=== PATIENT | male | born 1970 | race Caucasian/White ===

== ENCOUNTER 2017-08-17 12:04 | Emergency (ER) | payer MEDICARE, SELFPAY ==
[2017-08-17 12:22] VITALS: BP 147/97; PULSE 80; RESP 20; TEMP 36.6; O2SAT 97; BMI 25.1
--- NOTE | 2017-08-17 12:33 | HMH.EDUTC ---
[facility] [place] Impression: Gout flare Disposition: Home, Self-Care Condition on Discharge: Good Instructions: DI for Gout, Gout, Gout (Alternative Therapy) Additional Instructions: Take medication as prescribed Follow up with family doctor Return if needed If pain worsens or you see red streaks on foot go straight to ER Prescriptions: Ibuprofen [Ibuprofen 800mg Tab] 800 mg PO Q6HP PRN #20 tab PRN Reason: Moderate Pain Colchicine [Colcrys 0.6mg tablet] 0.6 mg PO BID #30 tab Time of Disposition: 12:51 Medical Decision Making - Medical Records Medical records reviewed: Yes: I reviewed the patient's medical records. Vital Signs: 08/17/17 12:22 Temperature 97.9 F Temperature Source Temporal Artery Scan Pulse Rate [Radial] 80 Respiratory Rate 20 Blood Pressure [Right Arm] 147/97 Blood Pressure Mean [Right Arm] 113 Blood Pressure Source [Right Arm] Automatic Cuff Blood Pressure Position [Right Arm] Sitting 02 Sat by Pulse Oximetry 97 Oxygen Delivery Method Room Air - Bayron Inquiry Pt receiving controlled substance: No Bayron was queried for this patient: No [facility] [place] - General Stated complaint: pain in r big toe Mode of Arrival: Ambulatory Source of Information: Patient Limitations: No Limitations Description of Symptoms (Recalled from Triage Doc. by RN): PT HAS A HX OF GOUT. PT STATES HE IS HAS GOUT IN HIS RIGHT BIG TOE HEENT Symptoms (Recalled from RN notes): No Resp Symptoms (Recalled from RN notes): No Skin Symptoms (Recalled from RN notes): No MS Symptoms (Recalled from RN notes): No Functional Status (Recalled from RN notes): NA - History of Present Illness Provider Complaint: Patient state that he has a history of gout State that he is having a gout attack in his right great toe State that he had gout about 4 days ago in the left great toe and that got better and now has returned and in the right great toe State that he has had several eppisodes of gout flare ups and this is like the others - Related Data Previous Rx's Medication Instructions Recorded Colchicine [Colcrys 0.6mg tablet] 0.6 mg PO BID #30 tab 08/17/17 Ibuprofen [Ibuprofen 800mg Tab] 800 mg PO Q6HP PRN #20 tab 08/17/17 Allergies Allergy/AdvReac Type Severity Reaction Status Date / Time amoxicillin [AMOXICILLIN] Allergy Unknown Verified 08/17/17 12:30 Penicillins [PENICILLINS] Allergy Unknown Verified 08/17/17 12:30 - Worker's Comp Is this a Worker's Comp case?: No H History I have reviewed the patient's past medical history: Yes Medical History: Denies:: Cancer, Diabetes Mellitus Type 1, Diabetes Mellitus Type 2, MRSA Amputation: No Fractures: No - *Social History Smoking Status: Current every day smoker Tobacco Type: cigarettes Alcohol Intake: never - Psychiatric History Expresses thoughts of harming self/others: None Suicide Plan Description: No Plan ROS Obtained: Yes All systems reviewed & no additional complaints Physical Exam - General General appearance: alert, in no apparent distress - ENT ENT exam: Present: normal exam, normal oropharynx, mucous membranes moist, TM's normal bilaterally, normal external ear exam - Respiratory Respiratory exam: Present: normal lung sounds bilaterally. Absent: respiratory distress - Cardiovascular Cardiovascular exam: Present: regular rate, normal rhythm. Absent: JVD - Abdominal Exam Abdominal exam: Present: soft, normal bowel sounds. Absent: distention, tenderness, guarding - Extremities Exam Extremities exam: Present: other (pain, swelling and tenderness in right great toe, describes as pain and swelling he has had previously with gout attack, good pulse, good cap refill) - Neurological Exam Neurological exam: Present: alert, oriented X3
--- NOTE | 2017-08-17 12:36 | ED_ITS ---
[facility] [place] Clinical Impression: Gout flare Disposition: Home, Self-Care Condition on Discharge: Good Instructions: DI for Gout, Gout, Gout (Alternative Therapy) Additional Instructions: Take medication as prescribed Follow up with family doctor Return if needed If pain worsens or you see red streaks on foot go straight to ER Prescriptions: Ibuprofen [Ibuprofen 800mg Tab] 800 mg PO Q6HP PRN #20 tab PRN Reason: Moderate Pain Colchicine [Colcrys 0.6mg tablet] 0.6 mg PO BID #30 tab Time of Disposition: 12:51 Medical Decision Making - Medical Records Medical records reviewed: Yes: I reviewed the patient's medical records. Vital Signs: 08/17/17 12:22 Temperature 97.9 F Temperature Source Temporal Artery Scan Pulse Rate [Radial] 80 Respiratory Rate 20 Blood Pressure [Right Arm] 147/97 Blood Pressure Mean [Right Arm] 113 Blood Pressure Source [Right Arm] Automatic Cuff Blood Pressure Position [Right Arm] Sitting 02 Sat by Pulse Oximetry 97 Oxygen Delivery Method Room Air - Bayron Inquiry Pt receiving controlled substance: No Bayron was queried for this patient: No [facility] [place] HPI - General Stated complaint: pain in r big toe Mode of Arrival: Ambulatory Source of Information: Patient Limitations: No Limitations Description of Symptoms (Recalled from Triage Doc. by RN): PT HAS A HX OF GOUT. PT STATES HE IS HAS GOUT IN HIS RIGHT BIG TOE HEENT Symptoms (Recalled from RN notes): No Resp Symptoms (Recalled from RN notes): No Skin Symptoms (Recalled from RN notes): No MS Symptoms (Recalled from RN notes): No Functional Status (Recalled from RN notes): NA - History of Present Illness Provider Complaint: Patient state that he has a history of gout State that he is having a gout attack in his right great toe State that he had gout about 4 days ago in the left great toe and that got better and now has returned and in the right great toe State that he has had several eppisodes of gout flare ups and this is like the others - Related Data Previous Rx's Medication Instructions Recorded Colchicine [Colcrys 0.6mg tablet] 0.6 mg PO BID #30 tab 08/17/17 Ibuprofen [Ibuprofen 800mg Tab] 800 mg PO Q6HP PRN #20 tab 08/17/17 Allergies Allergy/AdvReac Type Severity Reaction Status Date / Time amoxicillin [AMOXICILLIN] Allergy Unknown Verified 08/17/17 12:30 Penicillins [PENICILLINS] Allergy Unknown Verified 08/17/17 12:30 - Worker's Comp Is this a Worker's Comp case?: No [facility] History I have reviewed the patient's past medical history: Yes Medical History: Denies:: Cancer, Diabetes Mellitus Type 1, Diabetes Mellitus Type 2, MRSA Amputation: No Fractures: No - *Social History Smoking Status: Current every day smoker Tobacco Type: cigarettes Alcohol Intake: never - Psychiatric History Expresses thoughts of harming self/others: None Suicide Plan Description: No Plan ROS Obtained: Yes All systems reviewed & no additional complaints Physical Exam - General General appearance: alert, in no apparent distress - ENT ENT exam: Present: normal exam, normal oropharynx, mucous membranes moist, TM's normal bilaterally, normal external ear exam - Respiratory Respiratory exam: Present: normal lung sounds bilaterally. Absent: respiratory distress - Cardiovascular Cardiovascular exam: Present
--- NOTE | 2017-08-17 12:44 | PC.NURSE ---
PT REQUESTED INJECTIONS IN THE DELTOIDS INSTEAD OF HIP
[2017-08-17 13:25] VITALS: BP 140/84; PULSE 98; RESP 14; TEMP 37; O2SAT 98
== END 2017-08-17 13:26 | disposition home or self-care (01) ==
PROVIDERS: Emergency Provider Nurse Practitioner
DX: M10.9 Gout, unspecified (principal); F17.210 Nicotine dependence, cigarettes, uncomplicated; Z88.1 Allergy status to other antibiotic agents; Z88.0 Allergy status to penicillin
CPT/HCPCS: 96372; 99201

== ENCOUNTER → 2018-02-24 09:35 | Outpatient (REF) | payer MEDICARE, SELFPAY ==
[2018-02-24 14:00] LABS: Basophils # 0.1 K/mm3 (0-0.2); Basophils % 0.9 % (0.1-2.0); Eosinophils # 0.3 K/mm3 (0.0-0.4); Eosinophils % 5.4 % (0.1-12.0); Hematocrit 42.4 % (42.0-52.0); Hemoglobin 13.5 g/dL (14.1-18.0); Lymphocytes # 1.5 K/mm3 (0.7-4.5); Lymphocytes % 26.1 K/mm3 (10-50); Mean Corpuscular HGB Conc 31.8 g/dL (31.8-35.4); Mean Corpuscular Hemoglobin 29.6 pg (27.0-31.2); Mean Corpuscular Volume 93.3 fl (80-94); Mean Platelet Volume 9.1 fl (7.4-10.4); Monocytes # 0.3 K/mm3 (0.1-1.0); Monocytes % 5.9 % (1.7-9.3); Neutrophils # 3.6 K/mm3 (1.8-7.8); Neutrophils % 61.7 % (37.0-80.0); Platelet Count 290 K/mm3 (142-424); Red Blood Count 4.55 M/mm3 (4.60-6.20); Red Cell Distribution Width 13.3 % (11.5-17.5); White Blood Count 5.8 K/mm3 (4.8-10.8)
[2018-02-24 14:13] LABS: Alanine Aminotransferase 19 U/L (12-78); Albumin Level 3.7 gm/dL (3.4-5.0); Albumin/Globulin Ratio 1.1 (1.1-1.8); Alkaline Phosphatase 74 U/L (46-116); Anion Gap 12.6 mEq/L (5-15); Aspartate Amino Transferase 11 U/L (15-37); Bilirubin,Total 0.3 mg/dL (0.2-1.0); Blood Urea Nitrogen 9 mg/dL (7-18); C-Reactive Protein 0.7 mg/L (0.0-0.9); Calcium 9.1 mg/dL (8.5-10.1); Carbon Dioxide 29 mmol/L (21.0-32.0); Chloride 106 mmol/L (98-107); Chol/HDL Ratio 4.6 (1-3.5); Cholesterol 195 mg/dL (140-200); Creatinine,Serum 1.18 mg/dL (0.70-1.30); Estimated Glomerular Filt Rate 66 ml/min (>60); Free T4 (Free Thyroxine) 1.02 ng/dl (0.76-1.46); GFR (African American) 80 ML/MIN (>60); Globulin 3.4 gm/dl (1.3-3.2); Glucose 116 mg/dL (74-106); HDL Cholesterol 42 mg/dL (27-67); LDL Cholesterol 124 mg/dL (0-130); Potassium 4.6 mmoL/L (3.5-5.1); Sodium 143 mmol/L (136-145); Thyroid Stimulating Hormone 3.43 uIU/ml (0.358-3.740); Total Protein,Serum 7.1 gm/dL (6.4-8.2); Triglycerides 145 mg/dL (30-200); Uric Acid 7.5 mg/dL (2.6-7.2); VLDL Cholesterol 29 mg/dL (0-40)
[2018-02-24 14:53] LABS: Erythrocyte Sedimentation Rate 17 mm/hr (0-15)
[2018-02-25 15:28] LABS: Anti-Jo-1 <0.2 AI (0.0-0.9); Anti-Smith Antibody <0.2 AI (0.0-0.9); Antichromatin Antibodies <0.2 AI (0.0-0.9); Antiscleroderma-70 Antibodies <0.2 AI (0.0-0.9); RNP Antibodies <0.2 AI (0.0-0.9); Sjogren's Anti-SS-A <0.2 AI (0.0-0.9); Sjogren's Anti-SS-B <0.2 AI (0.0-0.9)
[2018-02-26 16:50] LABS: Anti-Centromere B Antibodies <0.2 AI (0.0-0.9); Anti-Cyclic Citrullinated Pept 5 units (0-19); Anti-DNA (DS) Ab Qn 8 IU/mL (0-9); RA Latex Turbid. <10.0 IU/mL (0.0-13.9); Vitamin D 25 Hydroxy 27.2 ng/mL (30.0-100.0)
== END ==
LOC: LAB 09:35
PROVIDERS: Visit Provider Nurse Practitioner Family
DX: R53.83 Other fatigue (principal); M10.9 Gout, unspecified; I10 Essential (primary) hypertension; M25.50 Pain in unspecified joint
CPT/HCPCS: 80053; 80061; 82652; 84439; 84443; 84550; 85025; 85651; 86140; 86200; 86225; 86235; 86431

== ENCOUNTER 2019-01-02 20:31 | Emergency (ER) | payer MEDICARE, SELFPAY ==
[2019-01-02 20:33] VITALS: BP 147/95; PULSE 96; RESP 20; TEMP 36.8; O2SAT 96; BMI 23.6
--- NOTE | 2019-01-02 20:51 | HMH.EDUTC ---
[facility] [place] Disposition Clinical Impression: Gout flare Qualifiers: Gout site: foot Gout etiology: unspecified cause Laterality: left Qualified Code(s): M10.9 - Gout, unspecified Disposition: Home, Self-Care Condition on Discharge: Good Instructions: DI for Gout Prescriptions: methylPREDNISolone [Medrol 4mg tab] 4 mg PO DIRECTED #21 tab Referrals: Mohamud Godoy MD [Primary Care Provider] - Time of Disposition: 20:55 Medical Decision Making - Bayron Inquiry Pt receiving controlled substance: No Vital Signs: 01/02/19 20:33 Temperature 98.2 F Temperature Source Oral Pulse Rate [Left Radial] 96 H Respiratory Rate 20 Blood Pressure [Right Arm] 147/95 H Blood Pressure Mean [Right Arm] 112 Blood Pressure Source [Right Arm] Automatic Cuff Blood Pressure Position [Right Arm] Sitting 02 Sat by Pulse Oximetry 96 Oxygen Delivery Method Room Air [facility] [place] HPI - General Stated complaint: Gout Time Seen by Provider: 01/02/19 20:51 Mode of Arrival: Ambulatory Source of Information: Patient Limitations: No Limitations Description of Symptoms (Recalled from Triage Doc. by RN): GOUT HEENT Symptoms (Recalled from RN notes): No Resp Symptoms (Recalled from RN notes): No Skin Symptoms (Recalled from RN notes): Yes MS Symptoms (Recalled from RN notes): Yes Functional Status (Recalled from RN notes): WNL - History of Present Illness Provider Complaint: Left foot pain secondary to gout X 3 days. Has not taken allopurinol for 3-4 days because he forgot to get it refilled. Onset (ago): day(s) (3) Location: right, lower extremity Relieving factors: none Exacerbating factors: none Treatments prior to arrival: none - Related Data Previous Rx's Medication Instructions Recorded methylPREDNISolone [Medrol 4mg 4 mg PO DIRECTED #21 tab 01/02/19 tab] Allergies Allergy/AdvReac Type Severity Reaction Status Date / Time amoxicillin [AMOXICILLIN] Allergy Unknown Verified 10/22/18 10:33 Penicillins [PENICILLINS] Allergy Unknown Verified 10/22/18 10:33 - Worker's Comp Is this a Worker's Comp case?: No [facility] History - Hepatitis A Screen Drug use history?: No High risk sexual behaviors?: No History of sexually transmitted infection?: No Currently employed?: No Childcare worker?: No Do you have indoor plumbing?: Yes Do you have electricity?: Yes Attestation statement:: This patient has been screened for Hepatitis A risk factors. I have reviewed the patient's past medical history: Yes Medical History: Reports:: Asthma, Chronic Obstructive Pulmonary Disease (COPD) Denies:: Cancer, Diabetes Mellitus Type 1, Diabetes Mellitus Type 2, Hypertension, MRSA Other Medical History: Reports: Other Other Surgeries: Yes: Other Amputation: No Fractures: Yes (left wrist,left index finger) Comment: Left finger, Left wrist, stomach surgery.. - Social History Educational Level: Completed High School Smoking Status: Current every day smoker Tobacco Type: cigarettes # Packs/Day (cigarettes): 1 Alcohol Intake: never Substance Use Type: denies use Occupational Status: disabled Housing: apartment Household Members: friend(s) - Psychiatric History Expresses thoughts of harming self/others: None Suicide Plan Description: No Plan Family Hx:: No significant family history ROS Obtained: Yes All systems reviewed & no additional complaints - Musculoskeletal Musculoskeletal: Reports joint pain Physical Exam - General General appearance: alert, in no apparent distress - Head Head exam: normocephalic - Eye Eye exam: Present: PERRL - ENT ENT exam: Present: mucous membranes moist - Respiratory Respiratory exam: Present: normal lung sounds bilaterally - Cardiovascular Cardiovascular exam: Present: regular rate, normal rhythm - Expanded Lower Extremity Exam Left Foot/toe exam: Present: tenderness, swelling - Neurological Exam Neurological exam: Present: alert, oriented X3 - Psychiatric Psyc
--- NOTE | 2019-01-02 20:54 | ED_ITS ---
[facility] [place]position Clinical Impression: Gout flare Qualifiers: Gout site: foot Gout etiology: unspecified cause Laterality: left Qualified Code(s): M10.9 - Gout, unspecified Disposition: Home, Self-Care Condition on Discharge: Good Instructions: DI for Gout Prescriptions: methylPREDNISolone [Medrol 4mg tab] 4 mg PO DIRECTED #21 tab Referrals: Mohamud Godoy MD [Primary Care Provider] - Time of Disposition: 20:55 Medical Decision Making - Bayron Inquiry Pt receiving controlled substance: No Vital Signs: 01/02/19 20:33 Temperature 98.2 F Temperature Source Oral Pulse Rate [Left Radial] 96 H Respiratory Rate 20 Blood Pressure [Right Arm] 147/95 H Blood Pressure Mean [Right Arm] 112 Blood Pressure Source [Right Arm] Automatic Cuff Blood Pressure Position [Right Arm] Sitting 02 Sat by Pulse Oximetry 96 Oxygen Delivery Method Room Air [facility] [place] HPI - General Stated complaint: Gout Time Seen by Provider: 01/02/19 20:51 Mode of Arrival: Ambulatory Source of Information: Patient Limitations: No Limitations Description of Symptoms (Recalled from Triage Doc. by RN): GOUT HEENT Symptoms (Recalled from RN notes): No Resp Symptoms (Recalled from RN notes): No Skin Symptoms (Recalled from RN notes): Yes MS Symptoms (Recalled from RN notes): Yes Functional Status (Recalled from RN notes): WNL - History of Present Illness Provider Complaint: Left foot pain secondary to gout X 3 days. Has not taken allopurinol for 3-4 days because he forgot to get it refilled. Onset (ago): day(s) (3) Location: right, lower extremity Relieving factors: none Exacerbating factors: none Treatments prior to arrival: none - Related Data Previous Rx's Medication Instructions Recorded methylPREDNISolone [Medrol 4mg 4 mg PO DIRECTED #21 tab 01/02/19 tab] Allergies Allergy/AdvReac Type Severity Reaction Status Date / Time amoxicillin [AMOXICILLIN] Allergy Unknown Verified 10/22/18 10:33 Penicillins [PENICILLINS] Allergy Unknown Verified 10/22/18 10:33 - Worker's Comp Is this a Worker's Comp case?: No [facility] History - Hepatitis A Screen Drug use history?: No High risk sexual behaviors?: No History of sexually transmitted infection?: No Currently employed?: No Childcare worker?: No Do you have indoor plumbing?: Yes Do you have electricity?: Yes Attestation statement:: This patient has been screened for Hepatitis A risk factors. I have reviewed the patient's past medical history: Yes Medical History: Reports:: Asthma, Chronic Obstructive Pulmonary Disease (COPD) Denies:: Cancer, Diabetes Mellitus Type 1, Diabetes Mellitus Type 2, Hypertension, MRSA Other Medical History: Reports: Other Other Surgeries: Yes: Other Amputation: No Fractures: Yes (left wrist,left index finger) Comment: Left finger, Left wrist, stomach surgery.. - Social History Educational Level: Completed High School Smoking Status: Current every day smoker Tobacco Type: cigarettes # Packs/Day (cigarettes): 1 Alcohol Intake: never Substance Use Type: denies use Occupational Status: disabled Housing: apartment Household Members: friend(s) - Psychiatric History Expresses thoughts of harming self/others: None Suic
--- NOTE | 2019-01-02 20:59 | PC.NURSE ---
Injections given in bilateral deltoids per patient request.
[2019-01-02 21:03] VITALS: BP 147/95; PULSE 96; RESP 20; TEMP 36.8; O2SAT 96
== END 2019-01-02 21:05 | disposition home or self-care (01) ==
PROVIDERS: Emergency Provider Physician Assistant; PCP Emergency Medicine
DX: M10.072 Idiopathic gout, left ankle and foot (principal); F17.210 Nicotine dependence, cigarettes, uncomplicated; J44.9 Chronic obstructive pulmonary disease, unspecified; Z88.0 Allergy status to penicillin
CPT/HCPCS: 96372; 99201; J1030

== ENCOUNTER 2020-01-15 21:43 | Emergency (ER) | payer MEDICARE, SELFPAY ==
[2020-01-15 21:57] VITALS: BP 150/81; PULSE 110; RESP 17; TEMP 37.2; O2SAT 98; BMI 23.6
--- NOTE | 2020-01-15 22:01 | XR_ITS ---
PROCEDURE: XR ANKLE RT MIN 3V CLINICAL INDICATION: ONSET OF SWELLING,HOT,SWOLLEN JOINT COMPARISON: ANKL3 ANKLE-LT-3 VIEWS from 12/07/2013 FINDINGS: There is mild diffuse soft tissue swelling both medially and laterally. Medial and lateral malleolus appear intact and the ankle mortise is normal. There are small spurs of the calcaneus at the insertion of Achilles tendon and plantar tendon. IMPRESSION: Moderate diffuse soft tissue swelling, no acute fracture seen Dictated by: Dr. Jamie Granados MD 01/16/2020 07:[address] Jamie Granados MD in [place] 01/16/2020 07:54
--- NOTE | 2020-01-15 22:03 | PC.NURSE ---
RAD NOTIFIED OF XRAY
[2020-01-15 22:09] LABS: Basophils # 0.1 K/mm3 (0-0.2); Basophils % 0.6 % (0.1-2.0); Eosinophils # 0.3 K/mm3 (0.0-0.4); Hematocrit 39.4 % (42.0-52.0); Hemoglobin 13.6 g/dL (14.1-18.0); Lymphocytes # 2.4 K/mm3 (0.7-4.5); Lymphocytes % 15.4 % (10-50); Mean Corpuscular HGB Conc 34.4 g/dL (31.8-35.4); Mean Corpuscular Hemoglobin 30.4 pg (27.0-31.2); Mean Corpuscular Volume 88.2 fl (80-94); Mean Platelet Volume 8.6 fl (7.4-10.4); Monocytes # 0.9 K/mm3 (0.1-1.0); Monocytes % 5.6 % (1.7-9.3); Neutrophils # 11.7 K/mm3 (1.8-7.8); Neutrophils % 76.3 % (37.0-80.0); Platelet Count 332 K/mm3 (142-424); Red Blood Count 4.47 M/mm3 (4.60-6.20); Red Cell Distribution Width 12.7 % (11.5-17.5); White Blood Count 15.4 K/mm3 (4.8-10.8)
--- NOTE | 2020-01-15 22:10 | HMH.EDGENADL ---
ED Disposition Clinical Impression: Arthritis, SIRS (systemic inflammatory response syndrome) Gout flare Qualifiers: Gout site: ankle Gout etiology: unspecified cause Laterality: right Qualified Code(s): M10.9 - Gout, unspecified Disposition: Home, Self-Care Condition on Discharge: Good Instructions: DI for Joint Pain Additional Instructions: see pcp saturday for follow up Prescriptions: predniSONE [Prednisone 20mg Tab] 20 mg PO BID #10 tab Transmission Status: Pending to [id number] Referrals: Дмитрий Mcintosh MD [Primary Care Provider] - - Critical Care Critical Care Time: No Attestation: On 01/15/20, the high probability of a clinically significant, sudden or life threatening deterioration of the following system(s) required my full and direct attention, intervention and personal management. The time I documented below is in addition to time spent performing reported procedures but includes the following listed in this critical care notation. Medical Decision Making - Medical Records Medical records reviewed: Yes: I reviewed the patient's medical records. - Bayron Inquiry Pt receiving controlled substance: No Vital Signs: 01/15/20 21:57 Temperature 99.0 F Temperature Source Oral Pulse Rate [Right Brachial] 110 H Respiratory Rate 17 Blood Pressure [Right Arm] 150/81 H Blood Pressure Mean [Right Arm] 104 Blood Pressure Source [Right Arm] Automatic Cuff Blood Pressure Position [Right Arm] Sitting 02 Sat by Pulse Oximetry 98 Oxygen Delivery Method Room Air - Lab Data Lab results reviewed: Yes: I reviewed the patient's lab results. Lab Results 01/15/20 22:00: WBC 15.4 H, RBC 4.47 L, Hgb 13.6 L, Hct 39.4 L, MCV 88.2, MCH 30.4, MCHC 34.4, RDW 12.7, Plt Count 332, MPV 8.6, Neut % (Auto) 76.3, Lymph % (Auto) 15.4, [place] % (Auto) 5.6, Eos % (Auto) 2.0, Baso % (Auto) 0.6, Neut # (Auto) 11.7 H, Lymph # (Auto) 2.4, [place] # (Auto) 0.9, Eos # (Auto) 0.3, Baso # (Auto) 0.1 01/15/20 22:00: Sodium 136, Potassium 3.6, Chloride 99, Carbon Dioxide 35 H, Anion Gap 5.6, BUN 4 L, Creatinine 0.80, Estimated Creat Clear 115, Estimated GFR 103, Est GFR ( Amer) 124, Glucose 96, Uric Acid 8.1, Calcium 9.2, Total Bilirubin 0.7, AST 16 L, ALT 14, Alkaline Phosphatase 72, C-Reactive Protein 47.3 H, Total Protein 7.4, Albumin 4.1, Globulin 3.3 H, Albumin/Globulin Ratio 1.2 01/15/20 22:00: Lactate 1.0 Result diagrams: 01/15/20 22:00 01/15/20 22:00 Orders (Tests/Meds): ED MEDICATIONS Generic Name Dose Route Start Last Admin Trade Name Freq PRN Reason Stop Dose Admin Sodium Chloride 1,000 mls @ 999 mls/hr 01/15/20 22:15 01/15/20 22:05 Sod Chlor 0.9% 1000ml Bag IV 01/15/20 23:15 999 mls/hr .[id number] RIOS Administration Discontinued Medications Generic Name Dose Route Start Last Admin Trade Name Freq PRN Reason Stop Dose Admin Ketorolac Tromethamine 30 mg 01/15/20 22:41 Toradol 30mg/Ml Vial IV 01/15/20 22:42 ONCE ONE Methylprednisolone Sodium Succinate 125 mg 01/15/20 22:41 Solu-Medrol 125mg/2ml Vial IV 01/15/20 22:42 ONCE ONE ORDERS Category Date Time Status XR ankle RT min 3V Stat Exams 01/15/20 22:01 Taken Complete Blood Count Auto Diff Stat Lab 01/15/20 22:00 Results Erythrocyte Sedimentation Rate Stat Lab 01/15/20 22:00 Received Blood Culture Stat Micro 01/15/20 22:00 Received - Radiology Data #1 Image(s): Ankle Image Reviewed: Yes I reviewed the patient's radiology image Preliminary Findings: No Fracture Seen General Adult HPI - General Chief complaint: PAIN Stated complaint: right foot pain and swollen Time Seen by Provider: 01/15/20 22:10 Mode of Arrival: Family Vehicle Source of Information: Patient, Medical Record Limitations: No Limitations Description of Symptoms (Recalled from ER Triage Doc. by RN): PT STATES HE TOOK A WALK LAST NIGHT AND NOTED HIS RIGHT ANKLE TO BE SORE AFTERWARDS. INCR SWELLING AND REDNESS THROUGHOUT
--- NOTE | 2020-01-15 22:14 | PC.NURSE ---
to rad at this time
[2020-01-15 22:22] LABS: MANUAL DIFFERENTIAL MANUAL DIFFERENTIAL (MANUAL DIFF)
[2020-01-15 22:28] LABS: Chloride 99 mmol/L (98-107); Sodium 136 mmol/L (136-145)
[2020-01-15 22:29] LABS: Potassium 3.6 mmoL/L (3.5-5.1)
[2020-01-15 22:31] LABS: Alanine Aminotransferase 14 U/L (12-78); Albumin Level 4.1 g/dl (3.5-5.0); Albumin/Globulin Ratio 1.2 (1.1-1.8); Alkaline Phosphatase 72 U/L (38-126); Anion Gap 5.6 mEq/L (5-15); Aspartate Amino Transferase 16 U/L (17-59); Bilirubin,Total 0.7 mg/dl (0.2-1.3); Blood Urea Nitrogen 4 mg/dl (9-20); Carbon Dioxide 35 mmol/L (22.0-30.0); Creatinine Clearance Estimated 115 mL/min (50-200); Estimated Glomerular Filt Rate 103 ml/min (>60); GFR (African American) 124 ML/MIN (>60); Globulin 3.3 g/dL (1.3-3.2); Total Protein,Serum 7.4 g/dl (6.3-8.2); Uric Acid 8.1 mg/dl (3.5-8.5)
[2020-01-15 22:32] LABS: Calcium 9.2 mg/dl (8.4-10.2); Glucose 96 mg/dl (74-100)
[2020-01-15 22:37] LABS: C-Reactive Protein 47.3 mg/L (0-4)
[2020-01-15 22:45] LABS: Eosinophils % 3 % (0-3); Lymphocytes % 14 % (10-50); Monocytes % 2 % (2-9); Neutrophils % 80 % (42-76); Total Cells Counted 100
[2020-01-15 22:46] LABS: Platelet Estimate Normal; RBC Morphology Normal
[2020-01-15 22:52] VITALS: BP 142/76; PULSE 78; RESP 19; TEMP 36.7; O2SAT 98
--- NOTE | 2020-01-15 22:52 | PC.NURSE ---
prescription given for po antibiotics.
[2020-01-15 22:57] LABS: Erythrocyte Sedimentation Rate 19 mm/hr (0-15)
== END 2020-01-15 22:55 | disposition home or self-care (01) ==
PROVIDERS: Emergency Provider Emergency Medicine; PCP Internal Medicine Adolescent Medicine
DX: M10.9 Gout, unspecified (principal); R65.10 Systemic inflammatory response syndrome (SIRS) of non-infectious origin without acute organ dysfunction; J44.9 Chronic obstructive pulmonary disease, unspecified; F17.210 Nicotine dependence, cigarettes, uncomplicated
CPT/HCPCS: 73610; 80053; 83605; 84550; 85007; 85025; 85651; 86140; 87040; 96365; 96375; 99282; 99283

== ENCOUNTER 2020-01-20 01:55 | Emergency (ER) | payer MEDICARE, SELFPAY ==
[2020-01-20 02:08] VITALS: BP 126/95; PULSE 97; RESP 18; TEMP 36.7; O2SAT 98; BMI 29.2
--- NOTE | 2020-01-20 02:19 | XR_ITS ---
PROCEDURE: XR CHEST 2V CLINICAL HISTORY: rule out aspiration COMPARISON: CXR2 CHEST-AP VIEW ONLY from 08/02/2016 CXR2V XR chest 2V from 11/22/2017 FINDINGS: Mild degenerative thoracic scoliosis and a remote fracture deformity of the right scapula is again noted. Lung evans are clear. Cardiac silhouette and the soft tissues are intact IMPRESSION: Mild degenerative thoracic scoliosis, clear lung evans, remote fracture deformity of the right scapula Dictated by: Mikal Gray 01/20/2020 08:05 Electronically signed by Mikal Gray in [place] 01/20/2020 08:05
[2020-01-20 02:29] LABS: Appearance,Urine CLEAR (Clear); Bilirubin,Urine Negative (Negative); Blood, Urine Negative (Negative); Color,Urine YELLOW (Yellow); Glucose,Urine (UA) Negative (Negative); Ketones,Urine Negative (Negative); Leukocyte Esterase,Urine Negative (Negative); Microscopic, Urine URINE MICROSCOPIC (MICROSCOPIC); Nitrate,Urine Negative (Negative); Protein,Urine Negative (Negative); Urobilinogen,Urine 0.2 EU/dl (0.2)
[2020-01-20 02:32] LABS: WBC,Urine Occasional #/hpf (0-3)
[2020-01-20 02:33] LABS: Bacteria,Urine Trace /lpf; Mucus,Urine 1+ /lpf
[2020-01-20 02:35] VITALS: BP 130/82; PULSE 67; RESP 18; O2SAT 98
[2020-01-20 02:59] LABS: Amphetamine/Metha Screen,Urine Negative ng/ml (<1000)
[2020-01-20 03:00] LABS: Barbiturates Screen,Urine Negative ng/ml (<200); Benzodiazepines Screen,Urine Negative ng/ml (<200)
[2020-01-20 03:01] LABS: Cannabinoid Screen,Urine Negative ng/ml (<50)
[2020-01-20 03:02] LABS: Cocaine Screen,Urine Negative ng/ml (<300); Methadone Screen,Urine Negative ng/ml (<300)
--- NOTE | 2020-01-20 03:02 | HMH.EDOD ---
ED Disposition Clinical Impression: Poisoning by opiate or related narcotic Disposition: Home, Self-Care Condition on Discharge: Good Instructions: DI for Drug Overdose in Adults Additional Instructions: call pcp in am for follow up Referrals: Provider,Referral, [Primary Care Provider] - - Critical Care Critical Care Time: No Attestation: On 01/20/20, the high probability of a clinically significant, sudden or life threatening deterioration of the following system(s) required my full and direct attention, intervention and personal management. The time I documented below is in addition to time spent performing reported procedures but includes the following listed in this critical care notation. Medical Decision Making - Medical Records Medical records reviewed: Yes: I reviewed the patient's medical records. - Bayron Inquiry Pt receiving controlled substance: No Vital Signs: 01/20/20 02:08 01/20/20 02:35 Temperature 98.0 F Temperature Source Oral Pulse Rate [Right Brachial] 97 H 67 Respiratory Rate 18 18 Blood Pressure [Right Arm] 126/95 H 130/82 Blood Pressure Mean [Right Arm] 105 98 Blood Pressure Source [Right Arm] Automatic Cuff Blood Pressure Position [Right Arm] Sitting 02 Sat by Pulse Oximetry 98 98 Oxygen Delivery Method Room Air Room Air - Lab Data Lab results reviewed: Yes: I reviewed the patient's lab results. Lab Results 01/20/20 02:10: Urine Color Yellow, Urine Appearance Clear, Urine pH 7.0, Ur Specific [place] 1.010, Urine Protein Negative, Urine Glucose (UA) Negative, Urine Ketones Negative, Urine Blood Negative, Urine Nitrate Negative, Urine Bilirubin Negative, Urine Urobilinogen 0.2, Ur Leukocyte Esterase Negative, Urine WBC Occasional, Urine Bacteria Trace, Urine Mucus 1+ Orders (Tests/Meds): ORDERS Category Date Time Status XR chest 2V Stat Exams 01/20/20 02:19 Taken Drug Screen,Urine Stat Lab 01/20/20 02:10 Received - Radiology Data #1 Image(s): Chest Image Reviewed: Yes I reviewed the patient's radiology image Preliminary Findings: Normal/NAD Overdose HPI - General Chief Complaint: Overdose Stated Complaint: overdose Time Seen by Provider: 01/20/20 02:30 Mode of Arrival: EMS Source of Information: Patient, Medical Record Limitations: No Limitations Description of Symptoms (Recalled from ER Triage Doc. by RN): overdose with possible aspiration - History of Present Illness HPI Narrative: prob overdose - blood material from nares and obtunded and received narcan which improved pt MD complaint: accidental overdose Onset (ago): hour(s) Timing confirmed by: other (ems) Context: Accidental Overdose: uncertain what happened - Related Data Previous Rx's Medication Instructions Recorded methylPREDNISolone [Medrol 4mg 4 mg PO DIRECTED #21 tab 01/02/19 tab] predniSONE [Prednisone 20mg 20 mg PO BID #10 tab 01/15/20 Tab] Allergies Allergy/AdvReac Type Severity Reaction Status Date / Time amoxicillin [AMOXICILLIN] Allergy Unknown Verified 10/22/18 10:33 Penicillins [PENICILLINS] Allergy Unknown Verified 10/22/18 10:33 [facility] History - Hepatitis A Screen Drug use history?: No High risk sexual behaviors?: No History of sexually transmitted infection?: No Currently employed?: No Childcare worker?: No Do you have indoor plumbing?: Yes Do you have electricity?: Yes Attestation statement:: This patient has been screened for Hepatitis A risk factors. I have reviewed the patient's past medical history: Yes Medical History: Reports:: Asthma, Chronic Obstructive Pulmonary Disease (COPD) Denies:: Cancer, Diabetes Mellitus Type 1, Diabetes Mellitus Type 2, Hypertension, MRSA Other Medical History: Reports: Other Other Surgeries: Yes: Other Amputation: No Fractures: Yes (left wrist,left index finger) Comment: Left finger, Left wrist, stomach surgery.. - Social History Smoking Status: Current every day smoker
[2020-01-20 03:03] LABS: Opiate Screen,Urine Negative ng/ml (<300)
[2020-01-20 03:04] LABS: Phencyclidine Screen,Urine Negative ng/ml (<25)
[2020-01-20 03:40] VITALS: BP 121/73; PULSE 73; RESP 16; TEMP 36.7; O2SAT 98
== END 2020-01-20 03:43 | disposition home or self-care (01) ==
PROVIDERS: Emergency Provider Emergency Medicine
DX: T40.1X1A Poisoning by heroin, accidental (unintentional), initial encounter (principal); J44.9 Chronic obstructive pulmonary disease, unspecified; F17.210 Nicotine dependence, cigarettes, uncomplicated; Z88.0 Allergy status to penicillin
CPT/HCPCS: 71046; 80305; 81001; 99283

== ENCOUNTER 2020-09-11 20:24 | Emergency (ER) | payer MEDICARE, SELFPAY ==
[2020-09-11 20:32] VITALS: BP 174/96; PULSE 76; RESP 16; TEMP 36.7; O2SAT 97; BMI 26.6
--- NOTE | 2020-09-11 20:53 | HMH.EDGENADL ---
ED Disposition Clinical Impression: Pharyngitis Qualifiers: Pharyngitis/tonsillitis etiology: unspecified etiology Qualified Code(s): J02.9 - Acute pharyngitis, unspecified Disposition: Home, Self-Care Condition on Discharge: Good Instructions: DI for Viral Pharyngitis Additional Instructions: fluids andadvil and tyenol and see pcp for follow up and test results Prescriptions: Azithromycin [Zithromax 250mg tab] 250 mg PO DIRECTED #6 tab Transmission Status: Pending to [id number] Referrals: Mohamud Godoy MD [Primary Care Provider] - - Critical Care Critical Care Time: No Attestation: On 09/11/20, the high probability of a clinically significant, sudden or life threatening deterioration of the following system(s) required my full and direct attention, intervention and personal management. The time I documented below is in addition to time spent performing reported procedures but includes the following listed in this critical care notation. Medical Decision Making - Medical Records Medical records reviewed: Yes: I reviewed the patient's medical records. - [place] Inquiry Pt receiving controlled substance: No Vital Signs: 09/11/20 20:32 Temperature 98.1 F Temperature Source Oral Pulse Rate [Right Brachial] 76 Respiratory Rate 16 Blood Pressure [Right Arm] 174/96 H Blood Pressure Mean [Right Arm] 122 Blood Pressure Source [Right Arm] Automatic Cuff Blood Pressure Position [Right Arm] Sitting 02 Sat by Pulse Oximetry 97 Oxygen Delivery Method Room Air - Lab Data Lab results reviewed: Yes: I reviewed the patient's lab results. Lab Results 09/11/20 20:40: Group A Strep Rapid Negative Orders (Tests/Meds): ORDERS Category Date Time Status Covid-19 Nasal PCR ([facility]) Routine Lab 09/11/20 20:40 Received Strep Screen Confirmation Stat Micro 09/11/20 20:40 Received General Adult HPI - General Chief complaint: PAIN Stated complaint: sore throat;upset stomach Time Seen by Provider: 09/11/20 20:54 Mode of Arrival: Family Vehicle Source of Information: Patient, Medical Record Limitations: No Limitations Description of Symptoms (Recalled from ER Triage Doc. by RN): sore throat for a couple of days; upset stomach, denies abd pain/n/v/d. afebrile. wants to be covid tested. no contact. - History of Present Illness HPI narrative: sore throat w/o cough or rash Onset (ago): day(s) Severity: moderate Associated symptoms: denies other symptoms Treatments prior to arrival: none - Related Data Previous Rx's Medication Instructions Recorded methylPREDNISolone [Medrol 4mg 4 mg PO DIRECTED #21 tab 01/02/19 tab] predniSONE [Prednisone 20mg 20 mg PO BID #10 tab 01/15/20 Tab] Azithromycin [Zithromax 250mg 250 mg PO DIRECTED #6 tab 09/11/20 tab] Allergies Allergy/AdvReac Type Severity Reaction Status Date / Time amoxicillin [AMOXICILLIN] Allergy Unknown Verified 10/22/18 10:33 Penicillins [PENICILLINS] Allergy Unknown Verified 10/22/18 10:33 [facility] History - Hepatitis A Screen Drug use history?: No High risk sexual behaviors?: No History of sexually transmitted infection?: No Currently employed?: No Childcare worker?: No Do you have indoor plumbing?: Yes Do you have electricity?: Yes Attestation statement:: This patient has been screened for Hepatitis A risk factors. I have reviewed the patient's past medical history: Yes Medical History: Reports:: Asthma, Chronic Obstructive Pulmonary Disease (COPD) Denies:: Cancer, Diabetes Mellitus Type 1, Diabetes Mellitus Type 2, Hypertension, MRSA Other Medical History: Reports: Other Other Surgeries: Yes: Other Amputation: No Fractures: Yes (left wrist,left index finger) Comment: Left finger, Left wrist, stomach surgery.. - Social History Smoking Status: Current every day smoker Tobacco Type: cigarettes # Packs/Day (cigarettes): 1 Alcohol Intake: never Substance Use Type: denies use
[2020-09-11 21:04] LABS: Strep Scrn Group A (Rapid) Negative (Negative)
[2020-09-11 21:12] VITALS: BP 125/74; PULSE 73; RESP 15; TEMP 36.7; O2SAT 98
== END 2020-09-11 21:13 | disposition home or self-care (01) ==
PROVIDERS: Emergency Provider Emergency Medicine; PCP Emergency Medicine
DX: Z20.822 Contact with and (suspected) exposure to COVID-19 (principal); J02.9 Acute pharyngitis, unspecified; R21 Rash and other nonspecific skin eruption; J45.909 Unspecified asthma, uncomplicated; F17.210 Nicotine dependence, cigarettes, uncomplicated; Z88.0 Allergy status to penicillin
CPT/HCPCS: 87430; 96365; 99283; U0003

== ENCOUNTER 2020-11-26 23:09 | Emergency (ER) | payer MEDICARE, SELFPAY ==
[2020-11-26 23:10] VITALS: BP 154/96; PULSE 114; RESP 16; TEMP 37; O2SAT 92; BMI 25.1
--- NOTE | 2020-11-26 23:44 | CT_ITS ---
PROCEDURE INFORMATION: Exam: CT Abdomen And Pelvis Without Contrast Exam date and time: 11/26/20 11:44 PM Age: 50 years old Clinical indication: Nausea and vomiting; Patient HX: N/v. Abd pain TECHNIQUE: Imaging protocol: Computed tomography of the abdomen and pelvis without contrast. Radiation optimization: All CT scans at this facility use at least one of these dose optimization techniques: automated exposure control; mA and/or kV adjustment per patient size (includes targeted exams where dose is matched to clinical indication); or iterative reconstruction. COMPARISON: ABDPELW/O CT ABD PELVIS W/O CONTRAST 03/09/16 11:35 PM FINDINGS: Tubes, catheters and devices: None noted. Lungs: Lung bases appear clear. Heart: No significant coronary calcifications. No cardiomegaly. No significant pericardial effusion. Liver: Normal. No mass. Gallbladder and bile ducts: Normal. No calcified stones. No ductal dilation. Pancreas: Normal. No ductal dilation. Spleen: Normal. No splenomegaly. Adrenal glands: Normal. No mass. Kidneys and ureters: Normal. No hydronephrosis. Stomach and bowel: Unremarkable. No obstruction. No mucosal thickening. Appendix: No evidence of appendicitis. Intraperitoneal space: Unremarkable. No free air. No significant fluid collection. Retroperitoneal space: No significant retroperitoneal inflammatory changes are noted. Vasculature: Unremarkable. No abdominal aortic aneurysm. Lymph nodes: Unremarkable. No enlarged lymph nodes. Urinary bladder: Unremarkable as visualized. Reproductive: Unremarkable as visualized. Bones/joints: Unremarkable. No acute fracture. Soft tissues: Unremarkable. IMPRESSION: No acute findings.
[2020-11-26 23:52] LABS: Basophils # 0.1 K/mm3 (0-0.2); Basophils % 0.5 % (0.1-2.0); Eosinophils # 0.1 K/mm3 (0.0-0.4); Eosinophils % 0.8 % (0.1-12.0); Hematocrit 42.4 % (42.0-52.0); Hemoglobin 14.2 g/dL (14.1-18.0); Lymphocytes # 1.3 K/mm3 (0.7-4.5); Lymphocytes % 7.9 % (10-50); Mean Corpuscular HGB Conc 33.4 g/dL (31.8-35.4); Mean Corpuscular Hemoglobin 30.4 pg (27.0-31.2); Mean Corpuscular Volume 90.9 fl (80-94); Mean Platelet Volume 8.6 fl (7.4-10.4); Monocytes # 0.7 K/mm3 (0.1-1.0); Monocytes % 4.4 % (1.7-9.3); Neutrophils # 13.7 K/mm3 (1.8-7.8); Neutrophils % 86.4 % (37.0-80.0); Platelet Count 379 K/mm3 (142-424); Red Blood Count 4.66 M/mm3 (4.60-6.20); Red Cell Distribution Width 12.4 % (11.5-17.5); White Blood Count 15.9 K/mm3 (4.8-10.8)
[2020-11-26 23:58] LABS: MANUAL DIFFERENTIAL MANUAL DIFFERENTIAL (MANUAL DIFF)
[2020-11-27 00:08] LABS: Alanine Aminotransferase 27 U/L (12-78); Albumin Level 4.9 g/dl (3.5-5.0); Albumin/Globulin Ratio 1.3 (1.1-1.8); Alkaline Phosphatase 96 U/L (38-126); Amylase 53 U/L (30-110); Anion Gap 12.5 mEq/L (5-15); Aspartate Amino Transferase 34 U/L (17-59); Bilirubin,Total 0.4 mg/dl (0.2-1.3); Blood Urea Nitrogen 13 mg/dl (9-20); Calcium 9.8 mg/dl (8.4-10.2); Carbon Dioxide 37 mmol/L (22.0-30.0); Chloride 95 mmol/L (98-107); Creatinine Clearance Estimated 96 mL/min (50-200); Estimated Glomerular Filt Rate 79 ml/min (>60); GFR (African American) 96 ML/MIN (>60); Globulin 3.7 g/dL (1.3-3.2); Glucose 167 mg/dl (74-100); Lipase 10 U/L (23-300); Potassium 3.5 mmoL/L (3.5-5.1); Sodium 141 mmol/L (136-145); Total Protein,Serum 8.6 g/dl (6.3-8.2)
[2020-11-27 00:13] LABS: C-Reactive Protein 12.9 mg/L (0-4)
[2020-11-27 00:21] LABS: Erythrocyte Sedimentation Rate 13 mm/hr (0-15)
[2020-11-27 00:27] LABS: Procalcitonin 0.054 ng/mL (0.0-2.0)
[2020-11-27 00:45] LABS: Lymphocytes % 5 % (10-50); Monocytes % 4 % (2-9); Neutrophils % 91 % (42-76); Platelet Estimate Normal; Total Cells Counted 100
[2020-11-27 00:46] LABS: RBC Morphology Normal
--- NOTE | 2020-11-27 01:34 | HMH.EDNVD ---
ED Disposition Clinical Impression: GERD (gastroesophageal reflux disease) Qualifiers: Esophagitis presence: esophagitis presence not specified Qualified Code(s): K21.9 - Gastro-esophageal reflux disease without esophagitis Disposition: Home, Self-Care Condition on Discharge: Good Instructions: DI for Nausea -- Adult Additional Instructions: call pcp on saturday for follow up Prescriptions: Pantoprazole Sodium [Protonix 40mg tablet] 40 mg PO HS #30 tab Transmission Status: Pending to [id number] Referrals: Mohamud Godoy MD [Primary Care Provider] - - Critical Care Critical Care Time: No Attestation: On 11/26/20, the high probability of a clinically significant, sudden or life threatening deterioration of the following system(s) required my full and direct attention, intervention and personal management. The time I documented below is in addition to time spent performing reported procedures but includes the following listed in this critical care notation. Medical Decision Making - Medical Records Medical records reviewed: Yes: I reviewed the patient's medical records. - Bayron Inquiry Pt receiving controlled substance: No Vital Signs: 11/26/20 23:10 Temperature 98.6 F Temperature Source Oral Pulse Rate [Right] 114 H Respiratory Rate 16 Blood Pressure [Right Arm] 154/96 H Blood Pressure Mean [Right Arm] 115 02 Sat by Pulse Oximetry 92 L - Lab Data Lab results reviewed: Yes: I reviewed the patient's lab results. Lab Results 11/26/20 23:41: WBC 15.9 H, RBC 4.66, Hgb 14.2, Hct 42.4, MCV 90.9, MCH 30.4, MCHC 33.4, RDW 12.4, Plt Count 379, MPV 8.6, Neut % (Auto) 86.4 H, Lymph % (Auto) 7.9 L, [place] % (Auto) 4.4, Eos % (Auto) 0.8, Baso % (Auto) 0.5, Neut # (Auto) 13.7 H, Lymph # (Auto) 1.3, [place] # (Auto) 0.7, Eos # (Auto) 0.1, Baso # (Auto) 0.1, Total Counted 100, Neutrophils % (Manual) 91 H, Lymphocytes % (Manual) 5 L, Monocytes % (Manual) 4, Platelet Estimate Normal, RBC Morphology Normal, ESR 13 11/26/20 23:41: Sodium 141, Potassium 3.5, Chloride 95 L, Carbon Dioxide 37 H, Anion Gap 12.5, BUN 13, Creatinine 1.00, Estimated Creat Clear 96, Estimated GFR 79, Est GFR ( Amer) 96, Glucose 167 H, Calcium 9.8, Total Bilirubin 0.4, AST 34, ALT 27, Alkaline Phosphatase 96, C-Reactive Protein 12.9 H, Total Protein 8.6 H, Albumin 4.9, Globulin 3.7 H, Albumin/Globulin Ratio 1.3, Amylase 53, Lipase 10 L, Procalcitonin 0.054 Result diagrams: 11/26/20 23:41 11/26/20 23:41 Orders (Tests/Meds): ED MEDICATIONS Generic Name Dose Route Start Last Admin Trade Name Freq PRN Reason Stop Dose Admin Sodium Chloride 1,000 mls @ 999 mls/hr 11/26/20 23:45 11/27/20 00:24 Sod Chlor 0.9% 1000ml Bag IV 11/27/20 00:45 999 mls/hr .Q1H1M RIOS Administration Sodium Chloride 8 ml 11/26/20 23:45 Sodium Chloride 0.9% 10ml Vial IV 12/26/20 23:44 NEEDED PRN dilute pepcid Discontinued Medications Generic Name Dose Route Start Last Admin Trade Name Freq PRN Reason Stop Dose Admin Famotidine 20 mg 11/26/20 23:45 11/27/20 00:24 Famotidine 20mg/2ml Vial IV 11/26/20 23:46 20 mg ONCE ONE Administration Ketorolac Tromethamine 30 mg 11/26/20 23:45 11/27/20 00:24 Ketorolac 30mg/Ml Vial IV 11/26/20 23:46 30 mg ONCE ONE Administration Metoclopramide HCl 10 mg 11/26/20 23:45 11/27/20 00:24 Metoclopramide Hcl 10mg/2ml Vial IVP 11/26/20 23:46 10 mg ONCE ONE Administration Ondansetron HCl 4 mg 11/26/20 23:45 11/27/20 00:24 Ondansetron 4mg/2ml Vial IV 11/26/20 23:46 4 mg ONCE ONE Administration - CT Data CT Scan: Abdomen, Pelvis Time Received: 01:[address] Reviewed: Yes: I have viewed the radiologist's interpretation Preliminary Findings: Normal/NAD - Reevaluation(s) Time: 01:41 Reevaluation #1: improved and able to drink fluids Medical Decision Narrative: has gerd sx and need to see pcp and consider egd Nausea/Vomiting/D
[2020-11-27 01:50] VITALS: BP 137/84; PULSE 90; RESP 16; TEMP 37; O2SAT 93
== END 2020-11-27 01:53 | disposition home or self-care (01) ==
PROVIDERS: Emergency Provider Emergency Medicine; PCP Emergency Medicine
DX: K21.9 Gastro-esophageal reflux disease without esophagitis (principal); R73.9 Hyperglycemia, unspecified; J44.9 Chronic obstructive pulmonary disease, unspecified; F17.210 Nicotine dependence, cigarettes, uncomplicated; Z88.0 Allergy status to penicillin; Z79.899 Other long term (current) drug therapy
CPT/HCPCS: 74176; 80053; 82150; 83690; 84145; 85007; 85025; 85651; 86140; 96365; 96375; 99282; J2405

== ENCOUNTER → 2021-02-01 15:57 | Outpatient (CLI) | payer MEDICARE, SELFPAY ==
[2021-02-01 16:16] LABS: Basophils # 0.1 K/mm3 (0-0.2); Basophils % 1.4 % (0.1-2.0); Eosinophils # 0.3 K/mm3 (0.0-0.4); Hematocrit 38.3 % (42.0-52.0); Hemoglobin 13.1 g/dL (14.1-18.0); Lymphocytes # 1.4 K/mm3 (0.7-4.5); Lymphocytes % 14.2 % (10-50); Mean Corpuscular HGB Conc 34.1 g/dL (31.8-35.4); Mean Corpuscular Hemoglobin 30.4 pg (27.0-31.2); Mean Corpuscular Volume 88.9 fl (80-94); Mean Platelet Volume 9.6 fl (7.4-10.4); Monocytes # 0.5 K/mm3 (0.1-1.0); Monocytes % 5.2 % (1.7-9.3); Neutrophils # 7.6 K/mm3 (1.8-7.8); Neutrophils % 76.2 % (37.0-80.0); Platelet Count 294 K/mm3 (142-424); Red Blood Count 4.31 M/mm3 (4.60-6.20); Red Cell Distribution Width 13.6 % (11.5-17.5)
[2021-02-01 16:49] LABS: Alanine Aminotransferase 16 U/L (12-78); Albumin/Globulin Ratio 1.4 (1.1-1.8); Alkaline Phosphatase 72 U/L (38-126); Anion Gap 13.5 mEq/L (5-15); Aspartate Amino Transferase 24 U/L (17-59); Bilirubin,Total 0.6 mg/dl (0.2-1.3); Blood Urea Nitrogen 5 mg/dl (9-20); Carbon Dioxide 31 mmol/L (22.0-30.0); Chloride 100 mmol/L (98-107); Chol/HDL Ratio 4.9 (1-3.5); Cholesterol 206 mg/dl (140-200); Estimated Glomerular Filt Rate 102 ml/min (>60); GFR (African American) 124 ML/MIN (>60); Globulin 2.9 g/dL (1.3-3.2); Glucose 104 mg/dl (74-100); HDL Cholesterol 42 mg/dl (40-60); Potassium 3.5 mmoL/L (3.5-5.1); Sodium 141 mmol/L (136-145); Total Protein,Serum 6.9 g/dl (6.3-8.2); Triglycerides 190 mg/dl (30-150); VLDL Cholesterol 38 mg/dL (0-40)
[2021-02-01 17:01] LABS: Direct LDL Cholesterol 130.66 mg/dL (100-129)
[2021-02-01 17:07] LABS: T4 (Thyroxine) 9.5 ug/dl (5.53-11.0)
[2021-02-01 17:20] LABS: Thyroid Stimulating Hormone 2.35 uIU/mL (0.465-4.68)
== END ==
PROVIDERS: Visit Provider Nurse Practitioner Family
DX: G47.33 Obstructive sleep apnea (adult) (pediatric) (principal); J44.9 Chronic obstructive pulmonary disease, unspecified; J45.909 Unspecified asthma, uncomplicated; E78.5 Hyperlipidemia, unspecified; R53.83 Other fatigue
CPT/HCPCS: 80053; 80061; 84436; 84443; 85025

== ENCOUNTER → 2022-11-07 20:10 | Outpatient (CLI) | payer MEDICARE, SELFPAY ==
[2022-11-07 18:09] LABS: Basophils # 0.2 K/mm3 (0-0.2); Basophils % 1.2 % (0.1-2.0); Eosinophils # 0.4 K/mm3 (0.0-0.4); Eosinophils % 3.1 % (0.1-12.0); Hematocrit 42.6 % (42.0-52.0); Hemoglobin 14.1 g/dL (14.1-18.0); Lymphocytes % 23.4 % (10-50); Mean Corpuscular HGB Conc 33.1 g/dL (31.8-35.4); Mean Corpuscular Hemoglobin 30.2 pg (27.0-31.2); Mean Corpuscular Volume 91.1 fl (80-94); Mean Platelet Volume 9.6 fl (7.4-10.4); Monocytes # 0.8 K/mm3 (0.1-1.0); Monocytes % 6.3 % (1.7-9.3); Neutrophils # 8.6 K/mm3 (1.8-7.8); Platelet Count 323 K/mm3 (142-424); Red Blood Count 4.68 M/mm3 (4.60-6.20); Red Cell Distribution Width 12.8 % (11.5-17.5)
[2022-11-07 19:20] LABS: Alanine Aminotransferase 33 U/L (12-78); Albumin Level 4.8 g/dl (3.5-5.0); Albumin/Globulin Ratio 1.8 (1.1-1.8); Alkaline Phosphatase 64 U/L (38-126); Anion Gap 11.7 mEq/L (5-15); Aspartate Amino Transferase 27 U/L (17-59); Bilirubin,Total 0.5 mg/dl (0.2-1.3); Blood Urea Nitrogen 13 mg/dl (9-20); Calcium 9.2 mg/dl (8.4-10.2); Carbon Dioxide 28 mmol/L (22.0-30.0); Chloride 97 mmol/L (98-107); Chol/HDL Ratio 7.4 (1-3.5); Cholesterol 280 mg/dl (140-200); Estimated Glomerular Filt Rate 58 ml/min (>60); GFR (African American) 70 ML/MIN (>60); Globulin 2.7 g/dL (1.3-3.2); Glucose 78 mg/dl (74-100); HDL Cholesterol 38 mg/dl (40-60); Potassium 3.7 mmoL/L (3.5-5.1); Sodium 133 mmol/L (136-145); Total Protein,Serum 7.5 g/dl (6.3-8.2)
[2022-11-07 19:28] LABS: Triglycerides 673 mg/dl (30-150)
[2022-11-07 19:31] LABS: Direct LDL Cholesterol 133.62 mg/dL (100-129)
[2022-11-07 19:35] LABS: 25-OH Vitamin D, Total 20.1 ng/mL (30-100)
[2022-11-07 19:50] LABS: Thyroid Stimulating Hormone 3.07 uIU/mL (0.465-4.68)
== END ==
PROVIDERS: PCP Nurse Practitioner Family; Visit Provider Nurse Practitioner Family
DX: I10 Essential (primary) hypertension (principal); E55.9 Vitamin D deficiency, unspecified; R53.83 Other fatigue; M10.9 Gout, unspecified
CPT/HCPCS: 80053; 80061; 82306; 84443; 85025

== ENCOUNTER 2022-11-14 07:13 | Emergency (ER) | payer MEDICARE, SELFPAY ==
[2022-11-14] VITALS (7 sets, daily range): BP systolic 116–156; BP diastolic 53–89; PULSE 87–110; RESP 18–20; TEMP 36.7–36.8; O2SAT 96–100; BMI 26.6
--- NOTE | 2022-11-14 07:18 | XR_ITS ---
FINAL REPORT CLINICAL HISTORY: injury, lt foot/ankle pain FINDINGS: LEFT FOOT Three views of the left foot demonstrate no acute fracture or dislocation. There are mild degenerative changes at the 1st MTP joint. There are small calcaneal spurs. The soft tissues are unremarkable. IMPRESSION: No acute bony abnormality. Mild degenerative changes at the 1st MTP joint. Reviewed, Interpreted and Dictated by Onel Gonzalez III, MD Transcribed by Benita Santoyo Authenticated and [facility]
--- NOTE | 2022-11-14 07:18 | XR_ITS ---
FINAL REPORT CLINICAL HISTORY: injury, lt foot/ankle pain FINDINGS: LEFT ANKLE Three views of the left ankle were obtained. There is no acute fracture or dislocation. There are mild degenerative changes. There is small calcaneal spur are. There is lateral soft tissue swelling. IMPRESSION: Lateral soft tissue swelling with no acute bony abnormality. Reviewed, Interpreted and Dictated by Onel Gonzalez III, MD Transcribed by Benita Santoyo Authenticated and [facility]
--- NOTE | 2022-11-14 07:18 | XR_ITS ---
FINAL REPORT CLINICAL HISTORY: injury, rt great toe pain COMPARISON: 04/29/2018 FINDINGS: RIGHT FOOT Three views of the right foot demonstrate no acute fracture or dislocation. There is mild hallux valgus deformity. There are mild degenerative changes at the 1st MTP joint. There are small calcaneal spurs. The soft tissues are unremarkable. IMPRESSION: No acute bony abnormality. Mild hallux valgus deformity and mild degenerative changes at the 1st MTP joint. Reviewed, Interpreted and Dictated by Onel Gonzalez III, MD Transcribed by Benita Santoyo Authenticated and [facility]
--- NOTE | 2022-11-14 07:34 | PC.NURSE ---
Patient going to radiology at this time.
--- NOTE | 2022-11-14 07:43 | PC.NURSE ---
pt returned from Radiology at this time.
--- NOTE | 2022-11-14 08:04 | HMH.EDGENADL ---
Discharge Plan Disposition Patient Disposition: Home, Self-Care Condition: Good Chief Complaint: PAIN Prescriptions Prescriptions: No Action lisinopril-hydrochlorothiazide 20-12.5 mg tablet 1 tab PO DAILY Qty: 14 0RF albuterol sulfate 90 mcg/actuation HFA aerosol inhaler 2 puff INHALATION Q4-6H PRN (Reason: shortness of breath or wheezing) Qty: 8.5 2RF atorvastatin 20 mg tablet 20 mg PO DAILY Qty: 30 2RF cholecalciferol (vitamin D3) 50 mcg (2,000 unit) capsule 50 mcg PO DAILY Qty: 30 4RF cholecalciferol (vitamin D3) 1,250 mcg (50,000 unit) tablet 1,250 mcg PO WEEKLY Qty: 7 2RF Dulera 50-5 mcg/actuation HFA aerosol inhaler 2 puff inhalation Q12H Qty: 13 2RF Referrals Follow up/Referrals: Rodrigo Pickett APRN [Primary Care Provider] - See instructions Clinical Impressions Clinical Impression: Bilateral foot pain Discharge ED Provider: Gavin Hernandez General Adult HPI General Chief complaint: PAIN Stated complaint: fall Time Seen by Provider: 11/14/22 07:51 Mode of Arrival: EMS Source of Information: Patient Limitations: No Limitations Description of Symptoms (Recalled from ER Triage Doc. by RN): pt called EMS for left foot/ankle pain and right big toe pain. pt states he kicked a ball on Saturday causing injuries. pt states he has taken Tylenol and Ibuprofen with no relief. History of Present Illness HPI narrative: This is a 52-year-old male with history of COPD, hypertension, hyperlipidemia, gout, podagra presenting with bilateral lower extremity pain. Patient states he was playing kickball on Saturday, 4 days prior to arrival and kicked the ball with his right foot, where he typically has his podagra. He had an acute pain in the medial aspect of his right foot and started hopping on his left foot. After hopping on his left foot, he developed pain in his left foot and states he has been unable to walk since Saturday. It is now Saturday. He has tried Tylenol and Motrin on Saturday, but nothing else. He denies fevers, chills, swelling, outward signs of injury, any other traumatic injuries, or any other concerns. Related Data Previous Rx's Medication Instructions Recorded albuterol sulfate 90 mcg/actuation 2 puff inhalation Q4-6H PRN 11/07/22 aerosol inhaler shortness of breath or wheezing #8.5 grams lisinopril 20 1 tab PO DAILY #14 tabs 11/07/22 mg-hydrochlorothiazide 12.5 mg tablet atorvastatin 20 mg tablet 20 mg PO DAILY #30 tabs 11/11/22 cholecalciferol (vitamin D3) 1,250 1,250 mcg PO WEEKLY #7 tabs 11/11/22 mcg (50,000 unit) tablet cholecalciferol (vitamin D3) 50 50 mcg PO DAILY #30 caps 11/11/22 mcg (2,000 unit) capsule mometasone-formoterol HFA 50 mcg-5 2 puff inhalation Q12H #13 grams 11/12/22 mcg/actuation aerosol inhaler (Dulera) Allergies Allergy/AdvReac Type Severity Reaction Status Date / Time amoxicillin [AMOXICILLIN] Allergy Unknown Verified 11/07/22 15:59 Penicillins [PENICILLINS] Allergy Unknown Verified 11/07/22 15:59 PFS PFS Disclaimer: The information contained in this section may have been updated after the patient was seen, as this information can be updated by other users. Social History Smoking Status: Current every day smoker tobacco type: cigarettes packs per day: 1 second hand exposure: No alcohol intake: never substance use type: denies use current occupational status: employed Travel in the last 8 weeks: None household members: friend(s) housing: apartment ROS Obtained: Yes All systems reviewed & no additional complaints except as documented Physical Exam General General appearance: alert Head Head exam: atraumatic, normocephalic and normal inspection Eye Eye exam: Present normal appearance, PERRL and EOMI ENT ENT exam: Present normal exam, normal oropharynx, mucous membranes moist, TM's normal bilaterally and normal external ear exam Neck Neck exam: Present normal inspection, full ROM and tra
== END 2022-11-14 09:32 | disposition home or self-care (01) ==
PROVIDERS: Emergency Provider Emergency Medicine; PCP Nurse Practitioner Family
DX: M79.671 Pain in right foot (principal); M79.672 Pain in left foot
CPT/HCPCS: 73610; 73630; 90471; 94060; 96372; 99284

== ENCOUNTER → 2022-11-14 09:39 | Outpatient (CLI) | payer MEDICARE, SELFPAY ==
--- NOTE | 2022-11-14 10:08 | PC.NURSE ---
Pre and Post Spirometry completed without incident. Albuterol 0.083% given via HHN, per protocol, Pt tolerated tx well. 6 Minute Walk Test not attempted, Pt states he was discharged from ER this morning with a severe gout flare up and is unable to walk without a limp and is in severe pain.
== END ==
PROVIDERS: PCP Nurse Practitioner Family; Visit Provider Nurse Practitioner Family
DX: R06.02 Shortness of breath (principal)
CPT/HCPCS: 94060

== ENCOUNTER 2022-12-24 08:09 | Emergency (ER) | payer MEDICARE, SELFPAY ==
[2022-12-24 08:10] VITALS: BP 153/86; PULSE 106; RESP 18; TEMP 36.4; O2SAT 99; BMI 28.0
--- NOTE | 2022-12-24 08:16 | PC.NURSE ---
DR BROWN AT BEDSIDE
--- NOTE | 2022-12-24 08:30 | HMH.EDGENADL ---
Discharge Plan Disposition Patient Disposition: Home Health Service Condition: Good Prescriptions Prescriptions: New naproxen [Naprosyn] 500 mg tablet 500 mg PO BID PRN (Reason: pain) Qty: 30 0RF prednisone 20 mg tablet 20 mg PO BID 7 Days Qty: 14 0RF No Action lisinopril-hydrochlorothiazide 20-12.5 mg tablet 1 tab PO DAILY Qty: 14 0RF naproxen [Naprosyn] 500 mg tablet 500 mg PO BID Qty: 60 0RF atorvastatin 20 mg tablet 20 mg PO DAILY Qty: 30 2RF cholecalciferol (vitamin D3) 50 mcg (2,000 unit) capsule 50 mcg PO DAILY Qty: 30 4RF cholecalciferol (vitamin D3) 1,250 mcg (50,000 unit) tablet 1,250 mcg PO WEEKLY Qty: 7 2RF Dulera 50-5 mcg/actuation HFA aerosol inhaler 2 puff inhalation Q12H Qty: 13 2RF albuterol sulfate 90 mcg/actuation HFA aerosol inhaler 1 inh inhalation QID Qty: 8.5 2RF allopurinol 200 mg tablet 200 mg PO DAILY Qty: 90 3RF prednisone 20 mg tablet 20 mg PO BID 5 Days Qty: 10 0RF Referrals Follow up/Referrals: Rodrigo Pickett APRN [Primary Care Provider] - See instructions Activity Restrictions/Add. Instructions Additional Instructions/Restrictions: Rest ice and elevate the extremity. Clinical Impressions Clinical Impression: Gout flare Stand Alone Forms Stand Alone Forms: Work/School Release Instructions Patient Instructions: DI for Acute Pain -- Adult Discharge ED Provider: Gavin Guzmán General Adult [facility] General Chief complaint: PAIN Stated complaint: possible gout Time Seen by Provider: 12/24/22 08:24 Mode of Arrival: Ambulatory Limitations: No Limitations Description of Symptoms (Recalled from ER Triage Doc. by RN): PT WITH C/O GOUT PAIN TO LEFT FOOT SINCE SATURDAY. History of Present Illness HPI narrative: Patient presents with a 5-day history of left ankle pain. This been no trauma. He does have a history of gout and has had similar pain in this exact joint in the past. He states he recently ran out of his allopurinol. There is been no fever. Related Data Previous Rx's Medication Instructions Recorded lisinopril 20 1 tab PO DAILY #14 tabs 11/07/22 mg-hydrochlorothiazide 12.5 mg tablet atorvastatin 20 mg tablet 20 mg PO DAILY #30 tabs 11/11/22 cholecalciferol (vitamin D3) 1,250 1,250 mcg PO WEEKLY #7 tabs 11/11/22 mcg (50,000 unit) tablet cholecalciferol (vitamin D3) 50 50 mcg PO DAILY #30 caps 11/11/22 mcg (2,000 unit) capsule mometasone-formoterol HFA 50 mcg-5 2 puff inhalation Q12H #13 grams 11/12/22 mcg/actuation aerosol inhaler (Dulera) naproxen 500 mg tablet (Naprosyn) 500 mg PO BID #60 tabs 11/16/22 albuterol sulfate 90 mcg/actuation 1 inh inhalation QID #8.5 grams 11/23/22 aerosol inhaler allopurinol 200 mg tablet 200 mg PO DAILY #90 tabs 11/28/22 prednisone 20 mg tablet 20 mg PO BID 5 days #10 tabs 12/11/22 naproxen 500 mg tablet (Naprosyn) 500 mg PO BID PRN pain #30 tabs 12/24/22 prednisone 20 mg tablet 20 mg PO BID 7 days #14 tabs 12/24/22 Allergies Allergy/AdvReac Type Severity Reaction Status Date / Time amoxicillin [AMOXICILLIN] Allergy Unknown Verified 11/16/22 09:18 Penicillins [PENICILLINS] Allergy Unknown Verified 11/16/22 09:18 [facility] Disclaimer: The information contained in this section may have been updated after the patient was seen, as this information can be updated by other users. Social History Smoking Status: Current every day smoker tobacco type: cigarettes packs per day: 1 second hand exposure: No alcohol intake: never substance use type: denies use current occupational status: employed Travel in the last 8 weeks: None household members: friend(s) housing: apartment ROS Obtained: Yes All systems reviewed & no additional complaints except as documented Physical Exam General General appearance: alert and in no apparent distress Head Head exam: atraumatic, normocephalic and normal
[2022-12-24 08:56] VITALS: BP 148/91; PULSE 81; RESP 17; TEMP 36.6; O2SAT 98
== END 2022-12-24 08:58 | disposition home health service (06) ==
PROVIDERS: Emergency Provider Emergency Medicine; PCP Nurse Practitioner Family
DX: M10.072 Idiopathic gout, left ankle and foot (principal); F17.210 Nicotine dependence, cigarettes, uncomplicated
CPT/HCPCS: 96372; 99283; 99284

== ENCOUNTER → 2022-12-25 15:04 | Outpatient (CLI) | payer MEDICARE, SELFPAY ==
[2022-12-25 14:02] LABS: Uric Acid 4.6 mg/dl (3.5-8.5)
== END | disposition home or self-care (01) ==
PROVIDERS: PCP Emergency Medicine; Visit Provider Emergency Medicine
DX: M10.9 Gout, unspecified (principal)
CPT/HCPCS: 84550

== ENCOUNTER 2022-12-29 05:55 | Emergency (ER) | payer MEDICARE, SELFPAY ==
[2022-12-29 06:04] VITALS: BP 160/101; PULSE 104; RESP 16; TEMP 37.1; O2SAT 97; BMI 26.6
[2022-12-29 06:18] LABS: Basophils # 0.1 K/mm3 (0-0.2); Basophils % 0.6 % (0.1-2.0); Eosinophils # 0.5 K/mm3 (0.0-0.4); Eosinophils % 3.5 % (0.1-12.0); Hematocrit 42.1 % (42.0-52.0); Hemoglobin 13.6 g/dL (14.1-18.0); Lymphocytes # 2.2 K/mm3 (0.7-4.5); Lymphocytes % 15.2 % (10-50); Mean Corpuscular HGB Conc 32.4 g/dL (31.8-35.4); Mean Corpuscular Hemoglobin 30.2 pg (27.0-31.2); Mean Corpuscular Volume 93.3 fl (80-94); Mean Platelet Volume 8.2 fl (7.4-10.4); Monocytes # 0.7 K/mm3 (0.1-1.0); Monocytes % 4.7 % (1.7-9.3); Platelet Count 314 K/mm3 (142-424); Red Blood Count 4.52 M/mm3 (4.60-6.20); Red Cell Distribution Width 13.4 % (11.5-17.5); White Blood Count 14.5 K/mm3 (4.8-10.8)
[2022-12-29 06:20] LABS: Chloride 101 mmol/L (98-107); Potassium 4.3 mmoL/L (3.5-5.1); Sodium 141 mmol/L (136-145)
[2022-12-29 06:23] LABS: Alanine Aminotransferase 37 U/L (12-78); Albumin Level 4.2 g/dl (3.5-5.0); Albumin/Globulin Ratio 1.4 (1.1-1.8); Alkaline Phosphatase 76 U/L (38-126); Anion Gap 11.3 mEq/L (5-15); Aspartate Amino Transferase 28 U/L (17-59); Bilirubin,Total 0.6 mg/dl (0.2-1.3); Blood Urea Nitrogen 13 mg/dl (9-20); Carbon Dioxide 33 mmol/L (22.0-30.0); Creatinine Clearance Estimated 77 mL/min (50-200); Estimated Glomerular Filt Rate 58 ml/min (>60); GFR (African American) 70 ML/MIN (>60); Total Protein,Serum 7.2 g/dl (6.3-8.2)
[2022-12-29 06:24] LABS: Calcium 9.3 mg/dl (8.4-10.2); Glucose 132 mg/dl (74-100)
[2022-12-29 06:29] LABS: C-Reactive Protein 10.8 mg/L (0-4)
[2022-12-29 06:30] VITALS: BP 157/92; PULSE 97; O2SAT 98
[2022-12-29 06:52] LABS: Uric Acid 6.1 mg/dl (3.5-8.5)
[2022-12-29 07:00] VITALS: BP 132/86; PULSE 96; O2SAT 97
--- NOTE | 2022-12-29 07:20 | PC.NURSE ---
DR ALEX AT BEDSIDE
--- NOTE | 2022-12-29 07:26 | HMH.EDGENADL ---
Discharge Plan Disposition Patient Disposition: Home, Self-Care Condition: Good Chief Complaint: PAIN Prescriptions Prescriptions: No Action lisinopril-hydrochlorothiazide 20-12.5 mg tablet 1 tab PO DAILY Qty: 14 0RF fluticasone furoate-vilanterol [Breo Ellipta] 100-25 mcg/dose blister with device 1 inh inhalation DAILY Qty: 90 3RF albuterol sulfate 90 mcg/actuation HFA aerosol inhaler 2 inh inhalation Q6H PRN (Reason: shortness of breath or wheezing) 90 Days Qty: 8.5 1RF allopurinol 200 mg tablet 200 mg PO DAILY Qty: 90 2RF atorvastatin 20 mg tablet 20 mg PO DAILY Qty: 30 2RF cholecalciferol (vitamin D3) 50 mcg (2,000 unit) capsule 50 mcg PO DAILY Qty: 30 4RF cholecalciferol (vitamin D3) 1,250 mcg (50,000 unit) tablet 1,250 mcg PO WEEKLY Qty: 7 2RF albuterol sulfate 90 mcg/actuation HFA aerosol inhaler 1 inh inhalation QID Qty: 8.5 2RF naproxen [Naprosyn] 500 mg tablet 500 mg PO BID PRN (Reason: pain) Qty: 30 0RF Referrals Follow up/Referrals: Rodrigo Pickett APRN [Primary Care Provider] - See instructions Activity Restrictions/Add. Instructions Additional Instructions/Restrictions: Restart your steroid medication tomorrow and take for 4 days. Follow-up with PCP next week. Clinical Impressions Clinical Impression: Gout flare Discharge ED Provider: Frantz Anderson Adult HPI General Chief complaint: PAIN Stated complaint: Possible gout in left foot Time Seen by Provider: 12/29/22 07:19 Mode of Arrival: Wheelchair Source of Information: Patient Limitations: No Limitations Description of Symptoms (Recalled from ER Triage Doc. by RN): pt c/o L foot pain. pt states he has a hx of gout and was seen here on 12/24 for gout. pt states his pain is 10/10 and has not been able to get any relief. History of Present Illness HPI narrative: 52yo M presents to the ER for return of his gout like pain to his left foot. Was seen on Saturday and provided Toradol and steroids. Reports his symptoms improved but returned at 430 this morning. States he usually has a shot of Toradol and a steroid shot and he can walk on his foot within for 5 hours. Related Data Previous Rx's Medication Instructions Recorded lisinopril 20 1 tab PO DAILY #14 tabs 11/07/22 mg-hydrochlorothiazide 12.5 mg tablet atorvastatin 20 mg tablet 20 mg PO DAILY #30 tabs 11/11/22 cholecalciferol (vitamin D3) 1,250 1,250 mcg PO WEEKLY #7 tabs 11/11/22 mcg (50,000 unit) tablet cholecalciferol (vitamin D3) 50 50 mcg PO DAILY #30 caps 11/11/22 mcg (2,000 unit) capsule albuterol sulfate 90 mcg/actuation 1 inh inhalation QID #8.5 grams 11/23/22 aerosol inhaler naproxen 500 mg tablet (Naprosyn) 500 mg PO BID PRN pain #30 tabs 12/24/22 allopurinol 200 mg tablet 200 mg PO DAILY #90 tabs 12/25/22 albuterol sulfate 90 mcg/actuation 2 inh inhalation Q6H PRN shortness 12/26/22 aerosol inhaler of breath or wheezing 90 days #8.5 grams fluticasone furoate 100 1 inh inhalation DAILY #90 ea 12/26/22 mcg-vilanterol 25 mcg/dose inhalation powder (Breo Ellipta) Allergies Allergy/AdvReac Type Severity Reaction Status Date / Time amoxicillin [AMOXICILLIN] Allergy Unknown Verified 12/26/22 13:17 Penicillins [PENICILLINS] Allergy Unknown Verified 12/26/22 13:17 [facility] Disclaimer: The information contained in this section may have been updated after the patient was seen, as this information can be updated by other users. Medical History Asthma-chronic obstructive pulmonary disease overlap syndrome COPD mixed type Dyspnea on exertion Encounter for screening for malignant neoplasm of lung Eosinophilia Family history of asthma Gastric bleed requiring more than 4 units over 24 hr, ICU, or surgery Smoking greater than 30 pack years Surgical History H/O wrist surgery Family History Other Hyperli
[2022-12-29 07:42] VITALS: BP 147/87; PULSE 92; RESP 18; TEMP 36.8; O2SAT 98
[2022-12-29 07:57] LABS: Erythrocyte Sedimentation Rate 24 mm/hr (0-20)
== END 2022-12-29 07:45 | disposition home or self-care (01) ==
PROVIDERS: Emergency Provider Family Medicine; PCP Nurse Practitioner Family
DX: M10.072 Idiopathic gout, left ankle and foot (principal); J44.9 Chronic obstructive pulmonary disease, unspecified; F17.210 Nicotine dependence, cigarettes, uncomplicated
CPT/HCPCS: 80053; 84550; 85025; 85651; 86140; 99284; 99285

== ENCOUNTER 2023-02-24 18:50 | Emergency (ER) | payer MEDICARE, SELFPAY ==
[2023-02-24 18:53] VITALS: BP 154/93; PULSE 98; RESP 18; TEMP 36.8; O2SAT 96; BMI 27.3
--- NOTE | 2023-02-24 19:15 | EXP.UTC ---
Discharge Plan Disposition Patient Disposition: Home, Self-Care Condition: Good Prescriptions Prescriptions: New methylprednisolone 4 mg Tablets,Dose Pack 4 mg PO DIRECTED Qty: 21 0RF No Action fluticasone furoate-vilanterol [Breo Ellipta] 100-25 mcg/dose blister with device 1 inh inhalation DAILY Qty: 90 3RF albuterol sulfate 90 mcg/actuation HFA aerosol inhaler 2 inh inhalation Q6H PRN (Reason: shortness of breath or wheezing) 90 Days Qty: 8.5 1RF allopurinol 200 mg tablet 200 mg PO DAILY Qty: 90 2RF atorvastatin 20 mg tablet 20 mg PO DAILY Qty: 30 2RF cholecalciferol (vitamin D3) 50 mcg (2,000 unit) capsule 50 mcg PO DAILY Qty: 30 4RF cholecalciferol (vitamin D3) 1,250 mcg (50,000 unit) tablet 1,250 mcg PO WEEKLY Qty: 7 2RF albuterol sulfate 90 mcg/actuation HFA aerosol inhaler 1 inh inhalation QID Qty: 8.5 2RF lisinopril-hydrochlorothiazide 20-12.5 mg tablet See Rx Instructions .ROUTE .COMPLEX Qty: 14 0RF Dose Instruction: TAKE ONE TABLET BY MOUTH ONCE A DAY Rx Instructions: TAKE ONE TABLET BY MOUTH ONCE A DAY naproxen [Naprosyn] 500 mg tablet 500 mg PO BID PRN (Reason: pain) Qty: 30 0RF Referrals Follow up/Referrals: Rodrigo Pickett APRN [Primary Care Provider] - See instructions Activity Restrictions/Add. Instructions Additional Instructions/Restrictions: Rest the extremity, Elevate the extremity as tolerated while you are resting. Follow up with your regular doctor. GO TO THE ER FOR ANY WORSENING SYMPTOMS Clinical Impressions Clinical Impression: Gout flare Stand Alone Forms Stand Alone Forms: Work/School Release Instructions Patient Instructions: Gout, DI for Gout, Methylprednisolone Injection Discharge ED Provider: Bud Landry [facility] General Stated complaint: POSSIBLE GOUT IN LEFT BIG TOE Mode of Arrival: Ambulatory Source of Information: Patient Limitations: No Limitations Time Seen by Provider: 02/24/23 19:15 Description of Symptoms (Recalled from Triage Doc. by RN): Patient reports gout in his big toe since this morning. HEENT Symptoms (Recalled from RN notes): No Resp Symptoms (Recalled from RN notes): No Skin Symptoms (Recalled from RN notes): No MS Symptoms (Recalled from RN notes): Yes Functional Status (Recalled from RN notes): wnl History of Present Illness Provider Complaint: He states that he has had right foot pain since last night. He denies any injury. He states that he has a history of gout and he is having a flare up of this right now. He denies any other joint pain or complaints. He is not a diabetic. Related Data Previous Rx's Medication Instructions Recorded atorvastatin 20 mg tablet 20 mg PO DAILY #30 tabs 11/11/22 cholecalciferol (vitamin D3) 1,250 1,250 mcg PO WEEKLY #7 tabs 11/11/22 mcg (50,000 unit) tablet cholecalciferol (vitamin D3) 50 50 mcg PO DAILY #30 caps 11/11/22 mcg (2,000 unit) capsule albuterol sulfate 90 mcg/actuation 1 inh inhalation QID #8.5 grams 11/23/22 aerosol inhaler naproxen 500 mg tablet (Naprosyn) 500 mg PO BID PRN pain #30 tabs 12/24/22 allopurinol 200 mg tablet 200 mg PO DAILY #90 tabs 12/25/22 albuterol sulfate 90 mcg/actuation 2 inh inhalation Q6H PRN shortness 12/26/22 aerosol inhaler of breath or wheezing 90 days #8.5 grams fluticasone furoate 100 1 inh inhalation DAILY #90 ea 12/26/22 mcg-vilanterol 25 mcg/dose inhalation powder (Breo Ellipta) lisinopril 20 See Rx Instructions .Route 01/31/23 mg-hydrochlorothiazide 12.5 mg .COMPLEX #14 tabs tablet methylprednisolone 4 mg tablets in 4 mg PO DIRECTED #21 tabs 02/24/23 a dose pack Allergies Allergy/AdvReac Type Severity Reaction Status Date / Time amoxicillin [AMOXICILLIN] Allergy Unknown Verified 12/26/22 13:17 Penicillins [PENICILLINS] Allergy Unknown Verified 12/26/22 13:17 Worker's Comp Is this a Worker's Comp case?: No [facility] Disclaimer: The information con
[2023-02-24 19:32] VITALS: BP 154/93; PULSE 98; RESP 18; TEMP 36.8; O2SAT 96
== END 2023-02-24 19:34 | disposition home or self-care (01) ==
PROVIDERS: Emergency Provider Nurse Practitioner Family; PCP Nurse Practitioner Family
DX: M10.071 Idiopathic gout, right ankle and foot (principal); F17.210 Nicotine dependence, cigarettes, uncomplicated; J44.9 Chronic obstructive pulmonary disease, unspecified; D72.10 Eosinophilia, unspecified
CPT/HCPCS: 96372; 99204; 99212; G0463

== ENCOUNTER → 2023-02-26 15:10 | Outpatient (CLI) | payer MEDICARE, SELFPAY ==
--- NOTE | 2023-02-26 15:10 | CT_ITS ---
FINAL REPORT TECHNIQUE: Axial images were obtained from the lung apex to the mid abdomen by computed tomography. This study was performed with techniques to keep radiation doses as low as reasonably achievable (ALARA). Individualized dose reduction techniques using automated exposure control or adjustment of mA and/or kV according to the patient's size were employed. CLINICAL HISTORY: lung cancer screening SMOKES 1 PK PER DAY X 30 YRS COPD FINDINGS: CHEST CT LOW DOSE CTDI vol (mGy): 2.90 DLP (mGy-cm): 115.94 There is no axillary adenopathy. There is no hilar or mediastinal adenopathy. The heart is normal in size. There is no pericardial or pleural effusion. Lung window images demonstrate no suspicious infiltrate or nodule. There is a calcified granuloma in the left upper lobe. Limited images of the upper abdomen are unremarkable. IMPRESSION: Lung RADS category 1. Recommend 12 month follow-up low-dose chest CT. Reviewed, Interpreted and Dictated by Onel Gonzalez III, MD Transcribed by Matilda Pak Authenticated and . [facility]
== END ==
PROVIDERS: PCP Nurse Practitioner Family; Visit Provider Internal Medicine Pulmonary Disease
DX: Z87.891 Personal history of nicotine dependence (principal); Z12.2 Encounter for screening for malignant neoplasm of respiratory organs
CPT/HCPCS: 71271

== ENCOUNTER 2023-03-24 20:52 | Emergency (ER) | payer MEDICARE, SELFPAY ==
[2023-03-24 20:58] VITALS: BP 175/101; PULSE 91; RESP 20; TEMP 36.8; O2SAT 95; BMI 28.0
--- NOTE | 2023-03-24 22:15 | HMH.EDGENADL ---
Discharge Plan Disposition Patient Disposition: Home, Self-Care Condition: Good Prescriptions Prescriptions: New indomethacin 50 mg capsule 50 mg PO TID 5 Days Qty: 15 0RF Rx Instructions: administer with food or milk No Action fluticasone furoate-vilanterol [Breo Ellipta] 100-25 mcg/dose blister with device 1 inh inhalation DAILY Qty: 90 3RF albuterol sulfate 90 mcg/actuation HFA aerosol inhaler 2 inh inhalation Q6H PRN (Reason: shortness of breath or wheezing) 90 Days Qty: 8.5 1RF allopurinol 200 mg tablet 200 mg PO DAILY Qty: 90 2RF atorvastatin 20 mg tablet 20 mg PO DAILY Qty: 30 2RF cholecalciferol (vitamin D3) 50 mcg (2,000 unit) capsule 50 mcg PO DAILY Qty: 30 4RF cholecalciferol (vitamin D3) 1,250 mcg (50,000 unit) tablet 1,250 mcg PO WEEKLY Qty: 7 2RF albuterol sulfate 90 mcg/actuation HFA aerosol inhaler 1 inh inhalation QID Qty: 8.5 2RF Referrals Follow up/Referrals: Rodrigo Pickett APRN [Primary Care Provider] - See instructions Activity Restrictions/Add. Instructions Additional Instructions/Restrictions: Please follow-up with your primary care provider tomorrow for refills of your regular medications. 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 return to the emergency department for any new or worsening symptoms. Clinical Impressions Clinical Impression: Gout flare, Elbow pain, right Instructions Patient Instructions: DI for Gout, DI for Acute Pain -- Adult Discharge ED Provider: Jocy Toledo General Adult HPI General Chief complaint: PAIN Stated complaint: poss gout on RT arm Time Seen by Provider: 03/24/23 22:08 Mode of Arrival: Ambulatory Source of Information: Patient Limitations: No Limitations Description of Symptoms (Recalled from ER Triage Doc. by RN): Patient reports hx of gout in bilateral feet. Last flare up being 1 month ago. Patient reports pain and heat coming from right elbow that started yesterday he believes it could be gout. History of Present Illness HPI narrative: This patient is a 52-year-old male with a history of recurrent gout presenting to the emergency department for evaluation with concern for atraumatic right elbow pain. He reports that this feels similar to prior gout flareups. He states that he ran out of his allopurinol a few days ago. He denies any fevers, chills, wounds, or other concerns. He denies any history of IV drug use. No history of septic arthritis in the past. Related Data Previous Rx's Medication Instructions Recorded atorvastatin 20 mg tablet 20 mg PO DAILY #30 tabs 11/11/22 cholecalciferol (vitamin D3) 1,250 1,250 mcg PO WEEKLY #7 tabs 11/11/22 mcg (50,000 unit) tablet cholecalciferol (vitamin D3) 50 50 mcg PO DAILY #30 caps 11/11/22 mcg (2,000 unit) capsule albuterol sulfate 90 mcg/actuation 1 inh inhalation QID #8.5 grams 11/23/22 aerosol inhaler allopurinol 200 mg tablet 200 mg PO DAILY #90 tabs 12/25/22 albuterol sulfate 90 mcg/actuation 2 inh inhalation Q6H PRN shortness 12/26/22 aerosol inhaler of breath or wheezing 90 days #8.5 grams fluticasone furoate 100 1 inh inhalation DAILY #90 ea 12/26/22 mcg-vilanterol 25 mcg/dose inhalation powder (Breo Ellipta) indomethacin 50 mg capsule 50 mg PO TID 5 days #15 caps 03/24/23 Allergies Allergy/AdvReac Type Severity Reaction Status Date / Time amoxicillin [AMOXICILLIN] Allergy Unknown Verified 03/01/23 11:44 Penicillins [PENICILLINS] Allergy Unknown Verified 03/01/23 11:44 [facility] Disclaimer: The information contained in this section may have been updated after the patient was seen, as this information can be updated by other users. Medical History Asthma-chronic obstructive pulmonary disease overlap syndrome COPD mixed type Dyspnea on exertion Encounter for screening for malignant neoplasm of lung Eosinophilia Family history of asthma Gastric bleed requiring more oly
[2023-03-24 22:25] VITALS: BP 170/109; PULSE 84; RESP 16; TEMP 36.8; O2SAT 97
== END 2023-03-24 22:26 | disposition home or self-care (01) ==
PROVIDERS: Emergency Provider Emergency Medicine; PCP Nurse Practitioner Family
DX: M10.021 Idiopathic gout, right elbow (principal); J44.9 Chronic obstructive pulmonary disease, unspecified; F17.210 Nicotine dependence, cigarettes, uncomplicated
CPT/HCPCS: 96372; 99283

== ENCOUNTER 2023-03-30 19:54 | Emergency (ER) | payer MEDICARE, SELFPAY ==
[2023-03-30 20:05] VITALS: BP 168/93; PULSE 78; RESP 20; TEMP 36.9; O2SAT 97; BMI 28.0
[2023-03-30 20:30] VITALS: BP 168/93; PULSE 78; RESP 20; TEMP 36.9; O2SAT 97
--- NOTE | 2023-03-30 20:41 | EXP.UTC ---
Discharge Plan Disposition Patient Disposition: Home, Self-Care Condition: Good Prescriptions Prescriptions: New allopurinol 100 mg tablet 100 mg PO DAILY 30 Days Qty: 30 0RF No Action fluticasone furoate-vilanterol [Breo Ellipta] 100-25 mcg/dose blister with device 1 inh inhalation DAILY Qty: 90 3RF albuterol sulfate 90 mcg/actuation HFA aerosol inhaler 2 inh inhalation Q6H PRN (Reason: shortness of breath or wheezing) 90 Days Qty: 8.5 1RF allopurinol 200 mg tablet 200 mg PO DAILY Qty: 90 2RF atorvastatin 20 mg tablet 20 mg PO DAILY Qty: 30 2RF cholecalciferol (vitamin D3) 50 mcg (2,000 unit) capsule 50 mcg PO DAILY Qty: 30 4RF cholecalciferol (vitamin D3) 1,250 mcg (50,000 unit) tablet 1,250 mcg PO WEEKLY Qty: 7 2RF albuterol sulfate 90 mcg/actuation HFA aerosol inhaler 1 inh inhalation QID Qty: 8.5 2RF indomethacin 50 mg capsule 50 mg PO TID 5 Days Qty: 15 0RF Rx Instructions: administer with food or milk Referrals Follow up/Referrals: Rodrigo Pickett APRN [Primary Care Provider] - See instructions Activity Restrictions/Add. Instructions Additional Instructions/Restrictions: Take the indomethacin as you was prescribed 1 pill every 8 hours for 5 days but do not take any more tonight you can restart them in the morning Follow up with your Family Doctor if symptoms continue Return if needed Straight to ER if any life threatening symptoms Clinical Impressions Clinical Impression: Gout flare Qualifiers: Gout site: unspecified site Gout etiology: unspecified cause Qualified Code(s): M10.9 - Gout, unspecified Instructions Patient Instructions: DI for Gout, Gout Discharge ED Provider: Shawna Christianson [facility] General Stated complaint: poss gout in elbow Mode of Arrival: Ambulatory Source of Information: Patient Limitations: No Limitations Time Seen by Provider: 03/30/23 20:35 Description of Symptoms (Recalled from Triage Doc. by RN): PATIENT C/O REDNESS, SWELLING AND WARMTH TO RIGHT ELBOW. REPORTS HISTORY OF GOUT HEENT Symptoms (Recalled from RN notes): No Resp Symptoms (Recalled from RN notes): No Skin Symptoms (Recalled from RN notes): No MS Symptoms (Recalled from RN notes): Yes Functional Status (Recalled from RN notes): WNL History of Present Illness Provider Complaint: Patient states that he has a hx of gout State that he was seen in the ED last week given a shot and was prescribed some medication for it States that it got better after that so he never filled the medication he was prescribed until yesterday States that he only took one today but hasnt helped much so he didnt take any more today and came in tonight to see if he could get a shot to help State that this is his typical symptoms with his gout Related Data Previous Rx's Medication Instructions Recorded atorvastatin 20 mg tablet 20 mg PO DAILY #30 tabs 11/11/22 cholecalciferol (vitamin D3) 1,250 1,250 mcg PO WEEKLY #7 tabs 11/11/22 mcg (50,000 unit) tablet cholecalciferol (vitamin D3) 50 50 mcg PO DAILY #30 caps 11/11/22 mcg (2,000 unit) capsule albuterol sulfate 90 mcg/actuation 1 inh inhalation QID #8.5 grams 11/23/22 aerosol inhaler allopurinol 200 mg tablet 200 mg PO DAILY #90 tabs 12/25/22 albuterol sulfate 90 mcg/actuation 2 inh inhalation Q6H PRN shortness 12/26/22 aerosol inhaler of breath or wheezing 90 days #8.5 grams fluticasone furoate 100 1 inh inhalation DAILY #90 ea 12/26/22 mcg-vilanterol 25 mcg/dose inhalation powder (Breo Ellipta) indomethacin 50 mg capsule 50 mg PO TID 5 days #15 caps 03/24/23 allopurinol 100 mg tablet 100 mg PO DAILY 30 days #30 tabs 03/30/23 Allergies Allergy/AdvReac Type Severity Reaction Status Date / Time amoxicillin [AMOXICILLIN] Allergy Unknown Verified 03/01/23 11:44 Penicillins [PENICILLINS] Allergy Unknown Verified 03/01/23 11:44 Worker's Comp Is this a Worker's Comp case?: No [facility] Disclaimer: The information
[2023-03-30 21:05] LABS: Uric Acid 9.7 mg/dl (3.5-8.5)
== END 2023-03-30 21:20 | disposition home or self-care (01) ==
PROVIDERS: Emergency Provider Nurse Practitioner; PCP Nurse Practitioner Family
DX: M10.021 Idiopathic gout, right elbow (principal); F17.210 Nicotine dependence, cigarettes, uncomplicated; J44.9 Chronic obstructive pulmonary disease, unspecified; D72.10 Eosinophilia, unspecified
CPT/HCPCS: 84550; 96372; 99212; 99214; G0463

== ENCOUNTER 2023-04-23 18:40 | Emergency (ER) | payer MEDICARE, SELFPAY ==
[2023-04-23 19:50] VITALS: BP 199/97; PULSE 83; RESP 20; TEMP 37.1; O2SAT 98; BMI 28.0
--- NOTE | 2023-04-23 20:02 | EXP.UTC ---
Discharge Plan Disposition Patient Disposition: Home, Self-Care Condition: Good Prescriptions Prescriptions: New indomethacin 50 mg capsule 50 mg PO TID 5 Days Qty: 15 0RF Rx Instructions: administer with food or milk No Action fluticasone furoate-vilanterol [Breo Ellipta] 100-25 mcg/dose blister with device 1 inh inhalation DAILY Qty: 90 3RF albuterol sulfate 90 mcg/actuation HFA aerosol inhaler 2 inh inhalation Q6H PRN (Reason: shortness of breath or wheezing) 90 Days Qty: 8.5 1RF allopurinol 200 mg tablet 200 mg PO DAILY Qty: 90 2RF atorvastatin 20 mg tablet 20 mg PO DAILY Qty: 30 2RF cholecalciferol (vitamin D3) 50 mcg (2,000 unit) capsule 50 mcg PO DAILY Qty: 30 4RF cholecalciferol (vitamin D3) 1,250 mcg (50,000 unit) tablet 1,250 mcg PO WEEKLY Qty: 7 2RF albuterol sulfate 90 mcg/actuation HFA aerosol inhaler 1 inh inhalation QID Qty: 8.5 2RF indomethacin 50 mg capsule 50 mg PO TID 5 Days Qty: 15 0RF Rx Instructions: administer with food or milk allopurinol 100 mg tablet 100 mg PO DAILY 30 Days Qty: 30 0RF Referrals Follow up/Referrals: Олег Moon MD [Primary Care Provider] - See instructions Activity Restrictions/Add. Instructions Additional Instructions/Restrictions: Follow up with your Family Doctor as discussed to have your blood pressure checked and treated if needed Straight to ER if any life threatening symptoms Start Indomethacin tomorrow Return if needed Clinical Impressions Clinical Impression: Gout flare Qualifiers: Gout site: elbow Gout etiology: other secondary cause Laterality: right Qualified Code(s): M10.421 - Other secondary gout, right elbow Instructions Patient Instructions: Gout, DI for Gout Discharge ED Provider: Shawna Christianson [facility] General Stated complaint: gout in elbow Mode of Arrival: Ambulatory Source of Information: Patient Limitations: No Limitations Time Seen by Provider: 04/23/23 20:02 Description of Symptoms (Recalled from Triage Doc. by RN): PATIENT C/O GOUT FLARE UP TO RIGHT ELBOW THAT STARTED SATURDAY NIGHT HEENT Symptoms (Recalled from RN notes): No Resp Symptoms (Recalled from RN notes): No Skin Symptoms (Recalled from RN notes): No MS Symptoms (Recalled from RN notes): Yes Functional Status (Recalled from RN notes): WNL History of Present Illness Provider Complaint: Patient states that he has a hx of gout States that he eat alot of red meat over the last week and the pain in his right elbow started States that he is out of his indomethacin so tonight he came in to get something to help States that he is getting in with his PCP this week for his blood pressure and check up Related Data Previous Rx's Medication Instructions Recorded atorvastatin 20 mg tablet 20 mg PO DAILY #30 tabs 11/11/22 cholecalciferol (vitamin D3) 1,250 1,250 mcg PO WEEKLY #7 tabs 11/11/22 mcg (50,000 unit) tablet cholecalciferol (vitamin D3) 50 50 mcg PO DAILY #30 caps 11/11/22 mcg (2,000 unit) capsule albuterol sulfate 90 mcg/actuation 1 inh inhalation QID #8.5 grams 11/23/22 aerosol inhaler allopurinol 200 mg tablet 200 mg PO DAILY #90 tabs 12/25/22 albuterol sulfate 90 mcg/actuation 2 inh inhalation Q6H PRN shortness 12/26/22 aerosol inhaler of breath or wheezing 90 days #8.5 grams fluticasone furoate 100 1 inh inhalation DAILY #90 ea 12/26/22 mcg-vilanterol 25 mcg/dose inhalation powder (Breo Ellipta) indomethacin 50 mg capsule 50 mg PO TID 5 days #15 caps 03/24/23 allopurinol 100 mg tablet 100 mg PO DAILY 30 days #30 tabs 03/30/23 indomethacin 50 mg capsule 50 mg PO TID 5 days #15 caps 04/23/23 Allergies Allergy/AdvReac Type Severity Reaction Status Date / Time amoxicillin [AMOXICILLIN] Allergy Unknown Verified 03/01/23 11:44 Penicillins [PENICILLINS] Allergy Unknown Verified 03/01/23 11:44 Worker's Comp Is this a Worker's Comp case?: No [facility] Disclaimer: The information con
[2023-04-23 20:07] VITALS: BP 199/97; PULSE 83; RESP 20; TEMP 37.1; O2SAT 98
== END 2023-04-23 20:45 | disposition home or self-care (01) ==
PROVIDERS: Emergency Provider Nurse Practitioner; PCP Radiology Radiation Oncology
DX: M10.421 Other secondary gout, right elbow (principal); F17.210 Nicotine dependence, cigarettes, uncomplicated; J44.9 Chronic obstructive pulmonary disease, unspecified
CPT/HCPCS: 96372; 99212; 99214; G0463

== ENCOUNTER 2023-04-24 14:43 | Observation (INO) | payer MEDICARE, SELFPAY ==
[2023-04-24] VITALS (12 sets, daily range): BP systolic 141–189; BP diastolic 80–102; PULSE 66–102; RESP 13–20; TEMP 36.6–36.8; O2SAT 94–98; BMI 28.0; BMI 28.7
--- NOTE | 2023-04-24 14:43 | ECG_ITS ---
APPROVED REPORT Exam: Resting ECG HR:104 bpm ECG Measurements Heart Rate 104 AXES MT 143 P 73 QRSd 81 QRS 66 QT 312 T 56 QTc 372 Conclusion SINUS TACHYCARDIA ABNORMAL RHYTHM ECG UNCONFIRMED REPORT Electronically signed by : Дмитрий Mcintosh MD 04/25/2023 17:19:36
--- NOTE | 2023-04-24 14:50 | XR_ITS ---
FINAL REPORT CLINICAL HISTORY: cp, GALLO smoker x 30 years, COPD COMPARISON: 01/20/2020 FINDINGS: A portable view of the chest was obtained. Cardiac and mediastinal silhouettes are within normal limits. There is a right base opacity that may represent atelectasis and/or pneumonia. There is no pleural effusion or pneumothorax. IMPRESSION: Right base opacity, atelectasis and/or pneumonia. Reviewed, Interpreted and Dictated by Delphine Reagan MD Transcribed by Taylor Dey Authenticated and [facility]
--- NOTE | 2023-04-24 14:53 | HMH.EDGENADL ---
Discharge Plan Disposition Patient Disposition: Home, Self-Care Prescriptions Prescriptions: No Action fluticasone furoate-vilanterol [Breo Ellipta] 100-25 mcg/dose blister with device 1 inh inhalation DAILY Qty: 90 3RF albuterol sulfate 90 mcg/actuation HFA aerosol inhaler 2 inh inhalation Q6H PRN (Reason: shortness of breath or wheezing) 90 Days Qty: 8.5 1RF atorvastatin 20 mg tablet 20 mg PO DAILY Qty: 30 2RF allopurinol 200 mg tablet 200 mg PO DAILY Qty: 90 2RF indomethacin 50 mg capsule 50 mg PO TID 5 Days Qty: 15 0RF Rx Instructions: administer with food or milk Clinical Impressions Clinical Impression: Hypertension, Headache Discharge ED Provider: Gavin Hernandez General Adult HPI <Gavin Hernandez MD - Last Filed: 04/24/23 14:58> General Chief complaint: Recheck/Abnormal Lab/Rx Stated complaint: high bp Time Seen by Provider: 04/24/23 14:50 History of Present Illness HPI narrative: 52-year-old male history of hypertension, hyperlipidemia, COPD still currently smoking not on home oxygen, gout, GERD presenting with hypertension. Patient was seen in the ER 1 day prior to arrival. Discharged with concern for gout flare. Patient was discharged, concern for asymptomatic hypertension. Seen in primary care doctors today and said he was been feeling lightheaded and headaches. Because of this as well as hypertension, sent to the ER for further evaluation. Patient denies any symptoms on arrival. States his headache has been going on for couple weeks, but does not feel as it is gotten any better or worse. No current chest pain or shortness of breath. Related Data Previous Rx's Medication Instructions Recorded fluticasone furoate 100 1 inh inhalation DAILY #90 ea 12/26/22 mcg-vilanterol 25 mcg/dose inhalation powder (Breo Ellipta) indomethacin 50 mg capsule 50 mg PO TID 5 days #15 caps 04/23/23 albuterol sulfate 90 mcg/actuation 2 inh inhalation Q6H PRN shortness 04/24/23 aerosol inhaler of breath or wheezing 90 days #8.5 grams allopurinol 200 mg tablet 200 mg PO DAILY #90 tabs 04/24/23 atorvastatin 20 mg tablet 20 mg PO DAILY #30 tabs 04/24/23 Allergies Allergy/AdvReac Type Severity Reaction Status Date / Time amoxicillin [AMOXICILLIN] Allergy Unknown Verified 04/24/23 14:05 Penicillins [PENICILLINS] Allergy Unknown Verified 04/24/23 14:05 PFS <Gavin Hernandez MD - Last Filed: 04/24/23 14:58> [facility] Disclaimer: The information contained in this section may have been updated after the patient was seen, as this information can be updated by other users. Medical History Asthma-chronic obstructive pulmonary disease overlap syndrome COPD mixed type Dyspnea on exertion Encounter for screening for malignant neoplasm of lung Eosinophilia Family history of asthma Gastric bleed requiring more than 4 units over 24 hr, ICU, or surgery Smoking greater than 30 pack years Surgical History H/O wrist surgery Family History Other Hyperlipidemia Hypertension Social History Smoking Status: Current every day smoker tobacco type: cigarettes packs per day: 1 second hand exposure: No alcohol intake: never substance use type: denies use current occupational status: employed Travel in the last 8 weeks: None household members: friend(s) housing: apartment <Gavin Hernandez MD - Last Filed: 04/24/23 14:58> ROS Obtained: Yes All systems reviewed & no additional complaints except as documented Physical Exam <Gavin Hernandez MD - Last Filed: 04/24/23 14:58> General General appearance: alert and in no apparent distress Head Head exam: atraumatic and normocephalic Eye Eye exam: Present normal appearance, PERRL and EOMI ENT ENT exam: Present mucous membranes moist Neck Neck exam: Present normal inspection,
[2023-04-24 15:09] LABS: Basophils % 0.1 % (0.1-2.0); Eosinophils # 0.3 K/mm3 (0.0-0.4); Eosinophils % 1.3 % (0.1-12.0); Hemoglobin 13.5 g/dL (14.1-18.0); Lymphocytes # 1.1 K/mm3 (0.7-4.5); Mean Corpuscular HGB Conc 32.2 g/dL (31.8-35.4); Mean Corpuscular Hemoglobin 30.5 pg (27.0-31.2); Mean Corpuscular Volume 94.5 fl (80-94); Mean Platelet Volume 8.3 fl (7.4-10.4); Monocytes # 0.6 K/mm3 (0.1-1.0); Monocytes % 3.2 % (1.7-9.3); Neutrophils % 89.5 % (37.0-80.0); Platelet Count 322 K/mm3 (142-424); Red Blood Count 4.44 M/mm3 (4.60-6.20); Red Cell Distribution Width 13.2 % (11.5-17.5)
[2023-04-24 15:25] LABS: MANUAL DIFFERENTIAL MANUAL DIFFERENTIAL (MANUAL DIFF)
--- NOTE | 2023-04-24 15:32 | PC.NURSE ---
Dr. Vital at [facility] for pt eval
[2023-04-24 15:35] LABS: Chloride 104 mmol/L (98-107); Sodium 141 mmol/L (136-145)
[2023-04-24 15:38] LABS: Alanine Aminotransferase 39 U/L (12-78); Albumin Level 4.5 g/dl (3.5-5.0); Albumin/Globulin Ratio 1.3 (1.1-1.8); Alkaline Phosphatase 67 U/L (38-126); Aspartate Amino Transferase 50 U/L (17-59); Bilirubin,Total 0.4 mg/dl (0.2-1.3); Blood Urea Nitrogen 13 mg/dl (9-20); Carbon Dioxide 28 mmol/L (22.0-30.0); Creatinine Clearance Estimated 96 mL/min (50-200); Estimated Glomerular Filt Rate 70 ml/min (>60); GFR (African American) 85 ML/MIN (>60); Globulin 3.5 g/dL (1.3-3.2)
[2023-04-24 15:39] LABS: Calcium 9.8 mg/dl (8.4-10.2); Glucose 142 mg/dl (74-100)
[2023-04-24 15:51] LABS: Troponin I 0.03 ng/ml (0.00-0.034)
[2023-04-24 16:08] LABS: D-Dimer 0.86 ug/mL (0.0-0.5)
--- NOTE | 2023-04-24 16:31 | CT_ITS ---
PROCEDURE INFORMATION: Exam: CTA Chest With Contrast Exam date and time: 04/24/2023 4:45 PM Age: 52 years old Clinical indication: Pain; Shortness of breath; Chest pressure; Additional info: bell MONSALVE TECHNIQUE: Imaging protocol: Computed tomographic angiography of the chest with contrast. Exam focused on the arteries. 3D rendering (Not supervised by radiologist): MIP and/or 3D reconstructed images were created by the technologist. Radiation optimization: All CT scans at this facility use at least one of these dose optimization techniques: automated exposure control; mA and/or kV adjustment per patient size (includes targeted exams where dose is matched to clinical indication); or iterative reconstruction. Contrast material: ISOVUE 370; Contrast volume: 70 ml; Contrast route: INTRAVENOUS (IV); REPORTING DATA: Count of CT and Cardiac NM exams in prior 12 months: This patient has received [address] and 0 known cardiac nuclear medicine studies in the 12 months prior to the current study. COMPARISON: CT LUNG SCREENING 02/26/2023 3:15 PM FINDINGS: Pulmonary arteries: There is suboptimal opacification of pulmonary arteries due to contrast bolus timing. Aorta: Unremarkable. No aortic aneurysm. No aortic dissection. Lungs: Calcified granuloma left upper lobe Pleural spaces: Unremarkable. No pneumothorax. No pleural effusion. Heart: Unremarkable. No cardiomegaly. No pericardial effusion. Coronary arteries: No evidence of coronary artery calcification Lymph nodes: Nonspecific mediastinal lymph nodes Splenic granulomas. Liver: Hepatic steatosis. Bones/joints: Unremarkable. No acute fracture. Soft tissues: Unremarkable. IMPRESSION: 1. No large or central pulmonary embolus. Evaluation of the peripheral pulmonary arteries is limited. 2. No evidence of acute abnormality.
[2023-04-24 16:38] LABS: Lymphocytes % 14 % (10-50); Monocytes % 5 % (2-9); Neutrophils % 81 % (42-76); Platelet Estimate Normal; RBC Morphology Normal; Total Cells Counted 100
--- NOTE | 2023-04-24 17:41 | CT_ITS ---
PROCEDURE INFORMATION: Exam: CT Head Without Contrast Exam date and time: 04/24/2023 5:59 PM Age: 52 years old Clinical indication: Pain; Headache not specified TECHNIQUE: Imaging protocol: Computed tomography of the head without contrast. Radiation optimization: All CT scans at this facility use at least one of these dose optimization techniques: automated exposure control; mA and/or kV adjustment per patient size (includes targeted exams where dose is matched to clinical indication); or iterative reconstruction. REPORTING DATA: Count of CT and Cardiac NM exams in prior 12 months: This patient has received [address] and 0 known cardiac nuclear medicine studies in the 12 months prior to the current study. COMPARISON: [facility] CT HEAD W/O CONTRAST 08/02/2016 7:13 AM FINDINGS: Brain: Normal. No hemorrhage. Unremarkable white matter. No mass effect. Cerebral ventricles: No ventriculomegaly. Paranasal sinuses: Visualized sinuses are unremarkable. No fluid levels. Mastoid air cells: Visualized mastoid air cells are well aerated. Bones/joints: Unremarkable. No acute fracture. Soft tissues: Unremarkable. IMPRESSION: No acute intracranial abnormality.
--- NOTE | 2023-04-24 18:37 | PC.NURSE ---
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 velázquez
--- NOTE | 2023-04-24 18:38 | PC.NURSE ---
LIBAN YOUSSEF speaking with Dr. Aquino
[2023-04-24 19:15] LABS: Troponin I 0.03 ng/ml (0.00-0.034)
--- NOTE | 2023-04-24 19:21 | PC.NURSE ---
hand off report given to shift mgr staff
--- NOTE | 2023-04-24 19:38 | PC.NURSE ---
OBSERVATION ADMISSION TO 219 WITH DX OF UNSTABLE ANGINA TO SERVICE OF HOSPITALIST.
--- NOTE | 2023-04-24 19:38 | PC.NURSE ---
notified warehouse order selector of admission
--- NOTE | 2023-04-24 20:13 | EXP.HP ---
History of Present Illness *Admission Date: 04/24/23 *Reason for visit:: hypertension urgency *History of present illness: This is a 52-year-old male history of hypertension, hyperlipidemia, COPD still currently smoking not on home oxygen, gout, GERD presenting with hypertension. Patient was seen in the ER 1 day prior to arrival. Discharged with concern for gout flare. Patient was discharged, concern for asymptomatic hypertension. Seen in primary care doctors today and said he was been feeling lightheaded and headaches. Because of this as well as hypertension, sent to the ER for further evaluation. Patient denies any symptoms on arrival. States his headache has been going on for couple weeks, but does not feel as it is gotten any better or worse. No current chest pain or shortness of breath. Admitted for evaluation and treatment [facility] Disclaimer: The information contained in this section may have been updated after the patient was seen, as this information can be updated by other users. Medical History Asthma-chronic obstructive pulmonary disease overlap syndrome Chest pain COPD mixed type Dyspnea on exertion Encounter for screening for malignant neoplasm of lung Eosinophilia Family history of asthma Gastric bleed requiring more than 4 units over 24 hr, ICU, or surgery Hyperlipidemia Hypertension Renal insufficiency Smoking greater than 30 pack years Surgical History H/O wrist surgery Family History Other Hyperlipidemia Hypertension Social History (Updated 04/24/23 @ 22:13 by Ev Chapman RN) Smoking Status: Current every day smoker tobacco type: cigarettes packs per day: 1 second hand exposure: No alcohol intake: never substance use type: denies use current occupational status: employed Travel in the last 8 weeks: None household members: friend(s) housing: apartment Review of Systems Review of Systems Review of systems:: pertinent systems reviewed and negative unless documented below Meds Home Medications and Allergies Home Medications Medication Instructions Recorded Confirmed Type albuterol sulfate 90 mcg/actuation 2 inh inhalation Q6H PRN shortness 04/24/23 04/24/23 Rx aerosol inhaler of breath or wheezing 90 days #8.5 grams allopurinol 200 mg tablet 200 mg PO DAILY Gout 04/24/23 04/24/23 History atorvastatin 20 mg tablet 20 mg PO DAILY Cholesterol 04/24/23 04/24/23 History fluticasone furoate 100 1 inh inhalation DAILY Breathing 04/24/23 04/24/23 History mcg-vilanterol 25 mcg/dose Problems inhalation powder (Breo Ellipta) New Prescriptions to Start Prescriptions: Allergies Allergy/AdvReac Type Severity Reaction Status Date / Time amoxicillin [AMOXICILLIN] Allergy Unknown Verified 04/24/23 14:05 Penicillins [PENICILLINS] Allergy Unknown Verified 04/24/23 14:05 Exam Data for Last 24 hours Vital signs and Labs for Last 24 Hours: Temp Pulse Resp BP Pulse Ox O2 Del Method 98 F 82 16 154/91 H 96 Room Air 04/24/23 20:07 04/24/23 20:07 04/24/23 20:07 04/24/23 20:07 04/24/23 19:31 04/24/23 20:07 Laboratory Results - last 24 hr 04/24/23 14:50: WBC 19.0 H, RBC 4.44 L, Hgb 13.5 L, Hct 42.0, MCV 94.5 H, MCH 30.5, MCHC 32.2, RDW 13.2, Plt Count 322, MPV 8.3, Neut % (Auto) 89.5 H, Lymph % (Auto) 6.0 L, [place] % (Auto) 3.2, Eos % (Auto) 1.3, Baso % (Auto) 0.1, Neut # (Auto) 17.0 H, Lymph # (Auto) 1.1, [place] # (Auto) 0.6, Eos # (Auto) 0.3, Baso # (Auto) 0.0, Total Counted 100, Neutrophils % (Manual) 81 H, Lymphocytes % (Manual) 14, Monocytes % (Manual) 5, Platelet Estimate Normal, RBC Morphology Normal, Sodium 141, Potassium 4.0, Chloride 104, Carbon Dioxide 28, Anion Gap 13.0, BUN 13, Creatinine 1.10, Estimated Creat Clear 96, Estimated GFR 70, Est GFR ( Amer) 85, Glucose 142 H, Calcium 9.8, Total Bilirubin 0.4, AST 50, ALT 39, Laura
--- NOTE | 2023-04-24 20:16 | PC.NURSE ---
fPatient arrived to floor via wheelchair at 20:13.
[2023-04-24 22:48] LABS: Troponin I 0.03 ng/ml (0.00-0.034)
[2023-04-25] VITALS (8 sets, daily range): BP systolic 117–147; BP diastolic 77–108; PULSE 57–80; RESP 18–19; TEMP 36.5–36.8; O2SAT 96–100
--- NOTE | 2023-04-25 04:21 | US_ITS ---
FINAL REPORT TECHNIQUE: Ultrasound images of the kidneys and bladder were obtained. CLINICAL HISTORY: hypertension FINDINGS: The right kidney measures 8.8 cm in length. It is normal in echogenicity. There is no hydronephrosis or mass. The left kidney measures 10.1 cm in length. It is normal in echogenicity. There is no hydronephrosis or mass. IMPRESSION: Morphologically normal kidneys bilaterally. Reviewed, Interpreted and Dictated by Delphine Reagan MD Transcribed by Matilda Pak Authenticated and [facility]
[2023-04-25 07:14] LABS: Basophils # 0.1 K/mm3 (0-0.2); Basophils % 0.6 % (0.1-2.0); Eosinophils # 0.2 K/mm3 (0.0-0.4); Eosinophils % 1.3 % (0.1-12.0); Hematocrit 43.8 % (42.0-52.0); Lymphocytes # 3.4 K/mm3 (0.7-4.5); Lymphocytes % 19.7 % (10-50); Mean Corpuscular HGB Conc 32.1 g/dL (31.8-35.4); Mean Corpuscular Volume 93.7 fl (80-94); Mean Platelet Volume 9.7 fl (7.4-10.4); Monocytes # 0.8 K/mm3 (0.1-1.0); Monocytes % 4.7 % (1.7-9.3); Neutrophils # 12.7 K/mm3 (1.8-7.8); Neutrophils % 73.6 % (37.0-80.0); Platelet Count 327 K/mm3 (142-424); Red Blood Count 4.67 M/mm3 (4.60-6.20); Red Cell Distribution Width 13.4 % (11.5-17.5); White Blood Count 17.2 K/mm3 (4.8-10.8)
[2023-04-25 07:18] LABS: MANUAL DIFFERENTIAL MANUAL DIFFERENTIAL (MANUAL DIFF)
[2023-04-25 07:31] LABS: Alanine Aminotransferase 31 U/L (12-78); Albumin Level 4.1 g/dl (3.5-5.0); Albumin/Globulin Ratio 1.2 (1.1-1.8); Alkaline Phosphatase 59 U/L (38-126); Aspartate Amino Transferase 29 U/L (17-59); Bilirubin,Total 0.2 mg/dl (0.2-1.3); Blood Urea Nitrogen 16 mg/dl (9-20); Calcium 9.4 mg/dl (8.4-10.2); Carbon Dioxide 27 mmol/L (22.0-30.0); Chloride 108 mmol/L (98-107); Chol/HDL Ratio 6.1 (1-3.5); Cholesterol 257 mg/dl (140-200); Creatinine Clearance Estimated 77 mL/min (50-200); Estimated Glomerular Filt Rate 53 ml/min (>60); GFR (African American) 64 ML/MIN (>60); Globulin 3.3 g/dL (1.3-3.2); Glucose 101 mg/dl (74-100); HDL Cholesterol 42 mg/dl (40-60); Sodium 144 mmol/L (136-145); Total Protein,Serum 7.4 g/dl (6.3-8.2); Triglycerides 234 mg/dl (30-150); VLDL Cholesterol 47 mg/dL (0-40)
[2023-04-25 07:42] LABS: Direct LDL Cholesterol 152.63 mg/dL (100-129)
--- NOTE | 2023-04-25 07:48 | HMH.PHAINT1 ---
Pharmacy Intervention Comments: MEDICATION RECONCILIATION COMPLETED ON PATIENT USING EXTERNAL FILL HISTORY FROM PHARMACY. -ROLANDO ROSENBERG, ELIZD
[2023-04-25 08:24] LABS: Lymphocytes % 23 % (10-50); Monocytes % 2 % (2-9); Neutrophils % 75 % (42-76); Platelet Estimate Normal; RBC Morphology Normal; Total Cells Counted 100
--- NOTE | 2023-04-25 09:08 | CA_ITS ---
APPROVED REPORT EXAM: Comprehensive 2D, Doppler, and color-flow Echocardiogram Apartment Maintenance Manager: Kellie Abreu RT(R) Ht: 5 ft 9 in Wt: 190lbs BSA: 2.02 BP: 154/91 mmHg Indications: angina, COPD, smoker, HTN, hyperlipidemia, RUBY, GERD, gastric bleeding 2D Dimensions Aortic Root 1.77 cm M: 3.1 - 3.7 LVEF ([facility]) 43.90 % M: 52 - 72 LVOT 2.08 cm (M/F) 1.5-2.5 LV Volume 97.10 mL M: 62 - 150 LV Volume Index 48.07 mL/m2 M: 34 - 74 LA Volume 55.10 mL LA Volume Index 27.28 mL/m2 (M/F) 16-34 M-Mode Dimensions RVDd 3.10 cm (0.9-2.6) LA Diam 3.43 cm (1.9-4.0) LVDd 4.20 cm (3.5-5.7) Ao Diam 3.05 cm (2.0-3.7) LVDs 3.37 cm (3.5-5.7) IVSd 0.72 cm (0.6-1.1) PWd 0.64 cm (0.6-1.1) EF (Teich) 41.00% FS 19.80% EDV (Teich) 78.60 mL TAPSE 2.30 (<1.7) ESV (Teich) 46.40 mL LV Diastology E Decel Time 190.00 (160-240 msec) E/A Ratio 1.8 MED E' 9.70 (< 7 cm/sec) E'/MED E' Ratio 10.28 (>14) LAT E' 9.20 (<10 cm/sec) E/LAT E' Ratio 10.84 (>14) Aortic Valve AI PHT 523.00 ms Mitral Valve MV E Max Kris. 100.00 (40-130 cm/s) MV A Velocity 56.00 (40-130 cm/s) E/A Ratio 1.79 MV Decel. Time 190.00 (160-240 ms) MV PHT 56.00 ms Left Ventricle The left ventricle is normal size. The left ventricular systolic function is low normal. The left ventricular ejection fraction is within the normal range. There is normal left ventricular wall thickness. There is normal LV segmental wall motion. The left ventricular diastolic function is normal. LVEF is 50-55%. Right Ventricle The right ventricle is normal size. Atria The left atrium size is normal. The right atrium size is normal. There is no Doppler evidence of interatrial shunt. Aortic Valve The aortic valve is trileaflet. The aortic valve is mildly thickened. There is no aortic valvular stenosis. Mild aortic regurgitation. Mitral Valve The mitral valve is mildly thickened. No evidence of mitral valve stenosis. Mild mitral regurgitation. Tricuspid Valve The tricuspid valve leaflets are thin and pliable. Trace tricuspid regurgitation. There is insufficient TR jet to estimate RVSP. Pulmonic Valve The pulmonary valve is normal in structure. Trace pulmonic regurgitation. Great Vessels The aortic root is normal in size. The ascending aorta is not well visualized. IVC is normal in size and collapses >50% with inspiration. Pericardium Trivial pericardial effusion is noted anteriorly. No echo indications of tamponade. Other Information Study Quality: Technically Difficult Conclusion This was a technically difficult study in the setting of poor acoustic windows. Normal LV size with low normal LV systolic function. Normal RV size and function. Mild AI, mild MR. Trivial pericardial effusion anteriorly. Electronically signed by : Kimberlee Aguilar MD 04/26/2023 01:01:44
--- NOTE | 2023-04-25 11:14 | EXP.CARD.CON ---
History of Present Illness History of Present Illness Consult date: 04/25/23 Requesting physician: Beni Oneal Consult reason: chest pain Chief complaint: high BP, CP History of present illness: This is a 52-year-old white gentleman who presented to the emergency department with complaints of chest pain. The patient has a known history of hypertension, hyperlipidemia and COPD. The patient reports that his blood pressure has been high for the last 3 to 4 months. He states that he was previously on lisinopril for hypertension but it was stopped by his primary care provider 3 to 4 months ago. He states that he does not really know why it was stopped, his primary care provider just told him he did not need the medication anymore. Since that time he has had worsening blood pressure. He states he has been having lightheadedness and dizziness as well as headaches. He states that yesterday he did have chest pain when his blood pressure was extremely high. He states that this is a sharp pressure sensation in the left side of his chest. He states that it does not radiate. There are no associated symptoms. He states that this has improved since being in the hospital. The patient was admitted for further evaluation and treatment. He has ruled out for an WI. He has no ischemic changes noted on his EKG. [facility] Disclaimer: The information contained in this section may have been updated after the patient was seen, as this information can be updated by other users. Medical History Asthma-chronic obstructive pulmonary disease overlap syndrome Chest pain COPD mixed type Dyspnea on exertion Encounter for screening for malignant neoplasm of lung Eosinophilia Family history of asthma Gastric bleed requiring more than 4 units over 24 hr, ICU, or surgery Hyperlipidemia Hypertension Renal insufficiency Smoking greater than 30 pack years Surgical History H/O wrist surgery Family History Other Hyperlipidemia Hypertension Social History (Updated 04/24/23 @ 22:13 by Ev Chapman RN) Smoking Status: Current every day smoker tobacco type: cigarettes packs per day: 1 second hand exposure: No alcohol intake: never substance use type: denies use current occupational status: employed Travel in the last 8 weeks: None household members: friend(s) housing: apartment Review of Systems Review of Systems Review of systems:: pertinent systems reviewed and negative unless documented below Constitutional Constitutional: Reports system reviewed and no additional complaints, except as documented and Reports headache(s) Eyes Eyes: Reports system reviewed and no additional complaints, except as documented ENT Ears, Nose, Mouth, and Throat: Reports system reviewed and no additional complaints, except as documented, Reports dizziness and Reports headache(s) *Cardiovascular Cardiovascular: Reports system reviewed and no additional complaints, except as documented, Reports chest pain, Reports chest pain at rest, Reports chest pain with activity, Denies dyspnea and Reports lightheadedness *Respiratory Respiratory: Reports system reviewed and no additional complaints, except as documented and Denies dyspnea *Gastrointestinal Gastrointestinal: Reports system reviewed and no additional complaints, except as documented *Genitourinary Genitourinary: Reports system reviewed and no additional complaints, except as documented *Musculoskeletal Musculoskeletal: Reports system reviewed and no additional complaints, except as documented Integumentary/Breasts Skin/Breast: Reports system reviewed and no additional complaints, except as documented *Neurologic Neurologic: Reports system reviewed and no additional complaints, except as documented, Reports dizziness and Reports headache(s) Psychiatric Psychiatric: Reports system reviewed and no additional co
--- NOTE | 2023-04-25 13:15 | EXP.PN ---
Subjective *Date: 04/25/23 *Time: 13:15 Interval history: Patient is seen and examined today. I am accompanied by nursing staff. The patient reports no further chest pain and denies associated dyspnea, fever, chills or productive cough. He describes a chronic smoking history. Nursing staff report that he remains afebrile with improved blood pressures and is saturating appropriately on room air. Exam Data for Last 24 hours Vital signs and Labs for Last 24 Hours: Temp Pulse Resp BP Pulse Ox O2 Del Method 98.3 F 57 L 18 147/93 H 100 Room Air 04/25/23 12:00 04/25/23 12:00 04/25/23 12:00 04/25/23 12:00 04/25/23 12:00 04/25/23 12:04 Laboratory Results - last 24 hr 04/24/23 14:50: WBC 19.0 H, RBC 4.44 L, Hgb 13.5 L, Hct 42.0, MCV 94.5 H, MCH 30.5, MCHC 32.2, RDW 13.2, Plt Count 322, MPV 8.3, Neut % (Auto) 89.5 H, Lymph % (Auto) 6.0 L, [place] % (Auto) 3.2, Eos % (Auto) 1.3, Baso % (Auto) 0.1, Neut # (Auto) 17.0 H, Lymph # (Auto) 1.1, [place] # (Auto) 0.6, Eos # (Auto) 0.3, Baso # (Auto) 0.0, Total Counted 100, Neutrophils % (Manual) 81 H, Lymphocytes % (Manual) 14, Monocytes % (Manual) 5, Platelet Estimate Normal, RBC Morphology Normal, Sodium 141, Potassium 4.0, Chloride 104, Carbon Dioxide 28, Anion Gap 13.0, BUN 13, Creatinine 1.10, Estimated Creat Clear 96, Estimated GFR 70, Est GFR ( Amer) 85, Glucose 142 H, Calcium 9.8, Total Bilirubin 0.4, AST 50, ALT 39, Alkaline Phosphatase 67, Troponin I 0.03, Total Protein 8.0, Albumin 4.5, Globulin 3.5 H, Albumin/Globulin Ratio 1.3 04/24/23 15:43: D-Dimer 0.86 H 04/24/23 18:38: Troponin I 0.03 04/24/23 21:10: Troponin I 0.03 04/25/23 07:05: WBC 17.2 H, RBC 4.67, Hgb 14.0 L, Hct 43.8, MCV 93.7, MCH 30.0, MCHC 32.1, RDW 13.4, Plt Count 327, MPV 9.7, Neut % (Auto) 73.6, Lymph % (Auto) 19.7, [place] % (Auto) 4.7, Eos % (Auto) 1.3, Baso % (Auto) 0.6, Neut # (Auto) 12.7 H, Lymph # (Auto) 3.4, [place] # (Auto) 0.8, Eos # (Auto) 0.2, Baso # (Auto) 0.1, Total Counted 100, Neutrophils % (Manual) 75, Lymphocytes % (Manual) 23, Monocytes % (Manual) 2, Platelet Estimate Normal, RBC Morphology Normal, Sodium 144, Potassium 4.0, Chloride 108 H, Carbon Dioxide 27, Anion Gap 13.0, BUN 16, Creatinine 1.40 H D, Estimated Creat Clear 77, Estimated GFR 53 L, Est GFR ( Amer) 64 D, Glucose 101 H D, Calcium 9.4, Magnesium 2.0, Total Bilirubin 0.2, AST 29 D, ALT 31, Alkaline Phosphatase 59, Total Protein 7.4, Albumin 4.1, Globulin 3.3 H, Albumin/Globulin Ratio 1.2, Triglycerides 234 H, Cholesterol 257 H, LDL Cholesterol Direct 152.63 H, VLDL Cholesterol 47 H, HDL Cholesterol 42, Cholesterol/HDL Ratio 6.1 H I & O for Last 24 hours: Intake & Output 04/22/23 04/23/23 04/24/23 04/25/23 23:59 23:59 23:59 23:59 Output Total 0 / 0 0 / 0 Balance 0 / 0 0 / 0 Weight 88.054 kg Constitutional Constitutional: no acute distress, disheveled and cooperative *Routine HEENT Exam Head: Present normocephalic and atraumatic Eye: Present EOMI and PERRL ENT: Present mucous membranes moist *Routine Neck Exam Neck: Present supple, full ROM and trachea midline; Absent lymphadenopathy *Routine Respiratory Exam Respiratory: Present rhonchi, normal respiratory effort and symmetric chest movement *Routine Cardiovascular Exam Cardiovascular: Present RRR, Normal S1 and Normal S2 *Routine Abdominal Exam Abdominal: Present soft and normoactive bowel sounds; Absent tenderness *Routine Extremities Exam Extremities: Present full ROM, pulses intact and normal capillary refill; Absent edema *Routine Skin Exam Skin: Present intact and warm; Absent rash *Routine Neurological Exam Neurological: Present alert, oriented X3, moving all extremities, vision grossly intact, hearing grossly intact and normal speech; Absent sensory deficit or motor deficit Routine Psychiatric Exam Psychiatric: Present normal affect, normal thought process, cooperative, good insight and good judgment Assessment and Plan *Assessment and plan (1) Hypertens
--- NOTE | 2023-04-25 19:07 | PC.NURSE ---
Assumed care of this pt at 1600. Pt had a shower this evening. C/O generalized pain and pain in his elbow with a rating of 7-8. Medicated per mar. DSG to #18 LAC changed. NS infusing @ 50 ml. Call light within reach. Family at bedside.
[2023-04-26] VITALS: BP 121/68; PULSE 66; PULSE 70; RESP 18; TEMP 36.6; O2SAT 96
[2023-04-26 04:00] VITALS: BP 114/61; PULSE 64; PULSE 70; RESP 18; TEMP 36.6; O2SAT 96; BMI 29.2
[2023-04-26 06:41] LABS: Basophils # 0.1 K/mm3 (0-0.2); Eosinophils # 0.3 K/mm3 (0.0-0.4); Lymphocytes % 32.7 % (10-50); Red Cell Distribution Width 13.4 % (11.5-17.5)
[2023-04-26 06:50] LABS: Basophils % 0.9 % (0.1-2.0); Hematocrit 37.9 % (42.0-52.0); Lymphocytes # 2.8 K/mm3 (0.7-4.5); Mean Corpuscular HGB Conc 32.4 g/dL (31.8-35.4); Mean Corpuscular Hemoglobin 30.2 pg (27.0-31.2); Mean Corpuscular Volume 93.3 fl (80-94); Mean Platelet Volume 9.3 fl (7.4-10.4); Monocytes # 0.7 K/mm3 (0.1-1.0); Monocytes % 7.6 % (1.7-9.3); Neutrophils # 4.7 K/mm3 (1.8-7.8); Neutrophils % 54.7 % (37.0-80.0); Platelet Count 268 K/mm3 (142-424); Red Blood Count 4.07 M/mm3 (4.60-6.20); White Blood Count 8.5 K/mm3 (4.8-10.8)
[2023-04-26 06:55] LABS: Hemoglobin 12.3 g/dL (14.1-18.0)
[2023-04-26 06:57] LABS: Anion Gap 7.8 mEq/L (5-15); Blood Urea Nitrogen 18 mg/dl (9-20); Calcium 8.5 mg/dl (8.4-10.2); Carbon Dioxide 29 mmol/L (22.0-30.0); Chloride 109 mmol/L (98-107); Creatinine Clearance Estimated 91 mL/min (50-200); Estimated Glomerular Filt Rate 64 ml/min (>60); GFR (African American) 77 ML/MIN (>60); Glucose 92 mg/dl (74-100); Potassium 3.8 mmoL/L (3.5-5.1); Sodium 142 mmol/L (136-145)
[2023-04-26 07:11] LABS: Procalcitonin 0.042 ng/mL (0.0-2.0)
[2023-04-26 07:38] VITALS: BP 150/91; PULSE 71; RESP 18; TEMP 36.4; O2SAT 97
[2023-04-26 08:00] VITALS: PULSE 80
--- NOTE | 2023-04-26 09:19 | EXP.DC.SUM ---
General Admission date:: 04/24/23 Discharge date: 04/26/23 HPI HPI HPI: This is a 52-year-old male history of hypertension, hyperlipidemia, COPD still currently smoking not on home oxygen, gout, GERD presenting with hypertension. Patient was seen in the ER 1 day prior to arrival. Discharged with concern for gout flare. Patient was discharged, concern for asymptomatic hypertension. Seen in primary care doctors today and said he was been feeling lightheaded and headaches. Because of this as well as hypertension, sent to the ER for further evaluation. Patient denies any symptoms on arrival. States his headache has been going on for couple weeks, but does not feel as it is gotten any better or worse. No current chest pain or shortness of breath. Admitted for evaluation and treatment Hospital Course Hospital Course Hospital Course: This is a 52-year-old male that presents to the emergency department at the request of his PCP for uncontrolled blood pressure. In the ED his blood pressure was 189/98 and he reported chest pain. His past medical history significant for hypertension, hyperlipidemia, tobacco dependence, medical noncompliance and illicit drug use. Problems addressed as follows: Hypertensive urgency Hypertension Telemetry monitoring Cardiology consult noted Echocardiogram with EF 55% Routine blood pressure monitoring Beta-dorina therapy ARB therapy Trending labs and inflammatory markers with stability identified Acute kidney injury Baseline creatinine 0.8 Trending electrolytes and creatinine with improvement noted Discharge creatinine 1.2 ED CTA contrast noted with no acute disease Previous CHRISTIAN inhibitor therapy noted and discontinued Fluid resuscitation Avoiding NSAIDs Bronchitis Pulse oximetry monitoring Oxygen therapy to maintain appropriate oxygen saturations Currently oxygenating appropriately on room air ED chest x-ray with concerns of right lower lobe pneumonia CTA chest with no lung opacities Leukocytosis noted Chronic tobacco use history noted Doxycycline 100 mg p.o. twice daily Tobacco dependence Tobacco cessation education Nicotine replacement therapy The patient was evaluated by cardiology. They recommended ongoing outpatient evaluations. The patient identified improvement and inquired about discharge home. He understands the importance of complete tobacco cessation to improve his health. He will be discharged on a short course of doxycycline for bronchitis. He is advised to see his PCP in 1 week. I spent 35 minutes in [id number] time with the patient and nursing staff concerning the discharge process. We discussed the admitting diagnoses and hospital course. We discussed identified improvement and the patient's desire to be discharged. We reviewed inpatient studies and imaging. The patient voiced understanding on the importance of follow-up with his primary care provider and specialist(s). The patient plans to be compliant with the medication regimen prescribed and follow-up appointments. He understands that he can return to the emergency department with any sudden changes or concerns. Exam Data for Last 24 hours Vital signs and Labs for Last 24 Hours: Temp Pulse Resp BP Pulse Ox O2 Del Method 97.5 F L 71 18 150/91 H 97 Room Air 04/26/23 07:38 04/26/23 07:38 04/26/23 07:38 04/26/23 07:38 04/26/23 07:38 04/26/23 09:00 Laboratory Results - last 24 hr 04/26/23 05:40: WBC 8.5 D, RBC 4.07 L, Hgb 12.3 L D, Hct 37.9 L, MCV 93.3, MCH 30.2, MCHC 32.4, RDW 13.4, Plt Count 268, MPV 9.3, Neut % (Auto) 54.7, Lymph % (Auto) 32.7, [place] % (Auto) 7.6, Eos % (Auto) 4.0, Baso % (Auto) 0.9, Neut # (Auto) 4.7, Lymph # (Auto) 2.8, [place] # (Auto) 0.7, Eos # (Auto) 0.3, Baso # (Auto) 0.1, Sodium 142, Potassium 3.8, Chloride 109 H, Carbon Dioxide 29, Anion Gap 7.8, BUN 18, Creatinine 1.20, Estimated Creat Clear 91, Estimated GFR 64, Est GFR ( Amer) 77 D, Glucose 92, Calcium 8.5, Procalciton
--- NOTE | 2023-04-26 10:02 | EXP.CARD.PN ---
Subjective Subjective Date: 04/26/23 Time: 08:30 Interval history: The patient's vital signs are stable this morning. His blood pressure has improved with the addition of bisoprolol and irbesartan. He denies any chest pain or pressure this morning. He denies any shortness of breath or edema. He denies any fever, chills, nausea, vomiting, diarrhea, PND orthopnea. Exam Data for Last 24 hours Vital signs and Labs for Last 24 Hours: Temp Pulse Resp BP Pulse Ox O2 Del Method 97.5 F L 71 18 150/91 H 97 Room Air 04/26/23 07:38 04/26/23 07:38 04/26/23 07:38 04/26/23 07:38 04/26/23 07:38 04/26/23 09:00 Laboratory Results - last 24 hr 04/26/23 05:40: WBC 8.5 D, RBC 4.07 L, Hgb 12.3 L D, Hct 37.9 L, MCV 93.3, MCH 30.2, MCHC 32.4, RDW 13.4, Plt Count 268, MPV 9.3, Neut % (Auto) 54.7, Lymph % (Auto) 32.7, Weston % (Auto) 7.6, Eos % (Auto) 4.0, Baso % (Auto) 0.9, Neut # (Auto) 4.7, Lymph # (Auto) 2.8, Weston # (Auto) 0.7, Eos # (Auto) 0.3, Baso # (Auto) 0.1, Sodium 142, Potassium 3.8, Chloride 109 H, Carbon Dioxide 29, Anion Gap 7.8, BUN 18, Creatinine 1.20, Estimated Creat Clear 91, Estimated GFR 64, Est GFR ( Amer) 77 D, Glucose 92, Calcium 8.5, Procalcitonin 0.042 I & O for Last 24 hours: Intake & Output 04/23/23 04/24/23 04/25/23 04/26/23 23:59 23:59 23:59 23:59 Intake Total 720 / 1020 420 / 420 Output Total 0 / 0 0 / 0 0 / 0 Balance 0 / 0 720 / 1020 420 / 420 Weight 194 lb 2 oz 197 lb 7 oz Constitutional Constitutional: no acute distress and average body habitus *Routine HEENT Exam Head: Present normocephalic and atraumatic ENT: Present mucous membranes moist *Routine Neck Exam Neck: Present supple, full ROM and normal carotid upstroke; Absent JVD, carotid bruit or lymphadenopathy *Routine Respiratory Exam Respiratory: Present CTA bilaterally, normal respiratory effort, able to speak in complete sentences and symmetric chest movement *Routine Cardiovascular Exam Cardiovascular: Present RRR, Normal S1 and Normal S2; Absent murmur or gallop *Routine Abdominal Exam Abdominal: Present soft and normoactive bowel sounds; Absent tenderness, distended or organomegaly *Routine Extremities Exam Extremities: Present full ROM, pulses intact and normal capillary refill; Absent cyanosis, clubbing or edema *Routine Skin Exam Skin: Present intact and warm; Absent erythema *Routine Neurological Exam Neurological: Present alert, oriented X3 and CN II-XII intact; Absent sensory deficit or motor deficit Routine Psychiatric Exam Psychiatric: Present normal affect Progress Note: A&P Assessment and plan (1) Hypertension: Status: Acute (2) Headache: Status: Acute (3) COPD mixed type: Status: Acute (4) Smoking greater than 30 pack years: Status: Acute (5) Hyperlipidemia: Status: Acute (6) Overweight: Status: Acute Assessment and Plan Assessment and Plan for All Diagnoses:: Plan: 1. This is a 52-year-old gentleman who presented to the emergency department complaints of high blood pressure and chest pain.. The patient was given metoprolol and lisinopril in the emergency department with improvement in his blood pressure. Yesterday he was then started on bisoprolol 5 mg daily and irbesartan 75 mg daily for better blood pressure control. 2. The patient's blood pressure slightly elevated this morning. We will increase his irbesartan 250 mg p.o. daily for better blood pressure control. 3. His echocardiogram shows a normal ejection fraction with mild MR and mild TR. This was discussed with the patient. 4. The patient will need an ischemic evaluation on an outpatient basis. Recommend outpatient stress testing next week once he has been discharged from the hospital. 5. His LDL goal is less than 100. His LDL is 152. He has been started on Lipitor. 6. Tobacco cessation is highly advised and counseled. 7. No further recommendations at this time from a cardiac standpoint. The patient sundeep
--- NOTE | 2023-04-29 14:28 | CARE MANAGER ---
Called and spoke with patient to discuss recent discharge. Patient stated that he has started new medication prescribed at discharge and is aware of scheduled f/u appts. No concerns voiced at time of call.
== END 2023-04-26 10:05 | disposition home or self-care (01) ==
LOC: ER 15:00 → 2ND 04-25 00:18
PROVIDERS: Emergency Medicine; Nurse Practitioner Family; Admitting Provider Family Medicine; Emergency Provider Emergency Medicine; PCP Emergency Medicine; Visit Provider Family Medicine
DX: I25.110 Atherosclerotic heart disease of native coronary artery with unstable angina pectoris (principal); I16.0 Hypertensive urgency; I10 Essential (primary) hypertension; N28.9 Disorder of kidney and ureter, unspecified; J40 Bronchitis, not specified as acute or chronic; R51.9 Headache, unspecified; M25.521 Pain in right elbow; J44.9 Chronic obstructive pulmonary disease, unspecified; F17.210 Nicotine dependence, cigarettes, uncomplicated; E78.2 Mixed hyperlipidemia; E66.3 Overweight; R07.9 Chest pain, unspecified; Z68.29 Body mass index [BMI] 29.0-29.9, adult
CPT/HCPCS: 36415; 70450; 71045; 71275; 76770; 80048; 80053; 80061; 83735; 84145; 84484; 85007; 85025; 85378; 93005; 93306; 99285; G0378; Q9967

== ENCOUNTER 2023-04-28 17:13 | Emergency (ER) | payer MEDICARE, SELFPAY ==
[2023-04-28 17:15] VITALS: BP 185/88; PULSE 75; RESP 19; TEMP 36.8; O2SAT 98; BMI 26.5
--- NOTE | 2023-04-28 17:29 | HMH.EDGENADL ---
Discharge Plan Disposition Patient Disposition: Home, Self-Care Condition: Good Prescriptions Prescriptions: No Action albuterol sulfate 90 mcg/actuation HFA aerosol inhaler 2 inh inhalation Q6H PRN (Reason: shortness of breath or wheezing) 90 Days Qty: 8.5 1RF allopurinol 200 mg tablet 200 mg PO DAILY fluticasone furoate-vilanterol [Breo Ellipta] 100-25 mcg/dose blister with device 1 inh INHALATION DAILY aspirin 81 mg Tablet,Delayed Release (Dr/Ec) 81 mg PO DAILY Qty: 30 0RF atorvastatin 40 mg Tablet 40 mg PO HS Qty: 30 0RF bisoprolol fumarate 5 mg Tablet 5 mg PO DAILY Qty: 30 0RF irbesartan 150 mg Tablet 150 mg PO DAILY Qty: 30 0RF doxycycline hyclate 100 mg Tablet 100 mg PO BID Qty: 14 0RF Referrals Follow up/Referrals: Mohamud Godoy MD [Primary Care Provider] - See instructions Activity Restrictions/Add. Instructions Additional Instructions/Restrictions: You were evaluated in the emergency department today. Please keep a log of your blood pressure at home. Take it at least twice a day, once in the morning and once at night. Follow-up with your primary care provider over the next 3 days for reassessment of your blood pressure. Continue take your medications at home as prescribed. Sometimes, it takes 2 to 4 weeks to see significant changes in blood pressure after initiating a new medication. Your primary care provider will be able to make adjustments over time to help try and control your blood pressure. . Return to the emergency department for new or concerning symptoms, such as chest pain, abdominal pain, significant swelling, severe and persistent headaches, or other concerns. Clinical Impressions Clinical Impression: Hypertension Instructions Patient Instructions: DI for High Blood Pressure Discharge ED Provider: o[facility] HPI General Stated complaint: BP high Time Seen by Provider: 04/28/23 17:29 History of Present Illness HPI narrative: This patient is a 52-year-old male with a history of hypertension, hyperlipidemia, COPD, and smoking history presenting to the emergency department for evaluation with concern for high blood pressure readings at home. He states that he was discharged here on 04/26 after be admitted for hypertension and unstable angina. He was discharged on 150 mg of irbesartan daily. He reports compliance with this, however his blood pressure is still been high at home on readings. He states that systolic is in the 170s to 180s. He denies any symptoms. He ate states that he is actually feeling very well and is feeling much better than his previous admission. He denies any headache, vision changes, chest pain, abdominal pain, swelling, or other concerns. Related Data Home Medications Medication Instructions Recorded Confirmed allopurinol 200 mg tablet 200 mg PO DAILY Gout 04/24/23 04/24/23 fluticasone furoate 100 1 inh inhalation DAILY Breathing 04/24/23 04/24/23 mcg-vilanterol 25 mcg/dose Problems inhalation powder (Breo Ellipta) Previous Rx's Medication Instructions Recorded albuterol sulfate 90 mcg/actuation 2 inh inhalation Q6H PRN shortness 04/24/23 aerosol inhaler of breath or wheezing 90 days #8.5 grams aspirin 81 mg tablet,delayed 81 mg PO DAILY #30 tabs 04/26/23 release atorvastatin 40 mg tablet 40 mg PO HS #30 tabs 04/26/23 bisoprolol fumarate 5 mg tablet 5 mg PO DAILY #30 tabs 04/26/23 doxycycline hyclate 100 mg tablet 100 mg PO BID #14 tabs 04/26/23 irbesartan 150 mg tablet 150 mg PO DAILY #30 tabs 04/26/23 Allergies Allergy/AdvReac Type Severity Reaction Status Date / Time amoxicillin [AMOXICILLIN] Allergy Unknown Verified 04/24/23 14:05 Penicillins [PENICILLINS] Allergy Unknown Verified 04/24/23 14:05 [facility] Disclaimer: The information contained in this section may have been updated after the patient was seen, as this information can be updated by other users.
[2023-04-28 17:44] VITALS: BP 162/78; PULSE 68; RESP 20; TEMP 36.8; O2SAT 97
--- NOTE | 2023-04-28 17:52 | ECG_ITS ---
APPROVED REPORT Exam: Resting ECG HR:63 bpm ECG Measurements Heart Rate 63 AXES DC 130 P 82 QRSd 94 QRS 85 QT 382 T 21 QTc 389 Conclusion SINUS RHYTHM NONSPECIFIC T-WAVE ABNORMALITY BORDERLINE ECG UNCONFIRMED REPORT Electronically signed by : Дмитрий Mcintosh MD 04/29/2023 17:09:51
== END 2023-04-28 17:46 | disposition home or self-care (01) ==
PROVIDERS: Emergency Provider Emergency Medicine; PCP Emergency Medicine
DX: I10 Essential (primary) hypertension (principal); I20.0 Unstable angina; E78.5 Hyperlipidemia, unspecified; J44.9 Chronic obstructive pulmonary disease, unspecified; N28.9 Disorder of kidney and ureter, unspecified; F17.210 Nicotine dependence, cigarettes, uncomplicated
CPT/HCPCS: 93005; 99284

== ENCOUNTER 2023-05-25 19:52 | Emergency (ER) | payer MEDICARE, SELFPAY ==
[2023-05-25 19:55] VITALS: BP 173/102; PULSE 80; RESP 16; TEMP 36.8; O2SAT 99; BMI 28.0
--- NOTE | 2023-05-25 20:05 | HMH.EDGENADL ---
Discharge Plan Disposition Patient Disposition: Home, Self-Care Prescriptions Prescriptions: New indomethacin 50 mg capsule 50 mg PO TID 7 Days Qty: 21 0RF Rx Instructions: administer with food or milk- may take 50 mg TID for 48 hours, then BID, discontinue 2 to 3 days after resolution of symptoms No Action albuterol sulfate 90 mcg/actuation HFA aerosol inhaler 2 inh inhalation Q6H PRN (Reason: shortness of breath or wheezing) 90 Days Qty: 8.5 1RF irbesartan 150 mg tablet 150 mg PO DAILY Qty: 30 0RF bisoprolol fumarate 5 mg tablet 5 mg PO DAILY Qty: 30 0RF allopurinol 200 mg tablet 200 mg PO DAILY fluticasone furoate-vilanterol [Breo Ellipta] 100-25 mcg/dose blister with device 1 inh INHALATION DAILY aspirin 81 mg Tablet,Delayed Release (Dr/Ec) 81 mg PO DAILY Qty: 30 0RF atorvastatin 40 mg Tablet 40 mg PO HS Qty: 30 0RF doxycycline hyclate 100 mg Tablet 100 mg PO BID Qty: 14 0RF Referrals Follow up/Referrals: Rodrigo Pickett APRN [Primary Care Provider] - See instructions Clinical Impressions Clinical Impression: Exacerbation of gout, 1st MTP arthritis Discharge ED Provider: [facility] HPI General Stated complaint: left great toe red,hot,swollen and painful Time Seen by Provider: 05/25/23 19:57 History of Present Illness HPI narrative: Patient is a 52-year-old male with a known history of gout has had multiple emergency department visits for gouty arthritis typically in his elbow but sometimes in his MTP joint presenting today with left MTP pain and swelling that he states is consistent with his gout in the past. States that whenever he comes to the emergency department if he gets steroids and Toradol that he has significant improvement in his symptoms and he specifically request this today. Denies any fevers chills or any other systemic symptoms. He is on home allopurinol and knows about dietary restrictions. Related Data Home Medications Medication Instructions Recorded Confirmed allopurinol 200 mg tablet 200 mg PO DAILY Gout 04/24/23 05/03/23 fluticasone furoate 100 1 inh inhalation DAILY Breathing 04/24/23 05/03/23 mcg-vilanterol 25 mcg/dose Problems inhalation powder (Breo Ellipta) Previous Rx's Medication Instructions Recorded albuterol sulfate 90 mcg/actuation 2 inh inhalation Q6H PRN shortness 04/24/23 aerosol inhaler of breath or wheezing 90 days #8.5 grams aspirin 81 mg tablet,delayed 81 mg PO DAILY #30 tabs 04/26/23 release atorvastatin 40 mg tablet 40 mg PO HS #30 tabs 04/26/23 doxycycline hyclate 100 mg tablet 100 mg PO BID #14 tabs 04/26/23 bisoprolol fumarate 5 mg tablet 5 mg PO DAILY #30 tabs 05/03/23 irbesartan 150 mg tablet 150 mg PO DAILY #30 tabs 05/03/23 indomethacin 50 mg capsule 50 mg PO TID 7 days #21 caps 05/25/23 Allergies Allergy/AdvReac Type Severity Reaction Status Date / Time amoxicillin [AMOXICILLIN] Allergy Unknown Verified 05/03/23 11:04 Penicillins [PENICILLINS] Allergy Unknown Verified 05/03/23 11:04 [facility] Disclaimer: The information contained in this section may have been updated after the patient was seen, as this information can be updated by other users. Medical History Asthma-chronic obstructive pulmonary disease overlap syndrome Chest pain COPD mixed type Dyspnea on exertion Encounter for screening for malignant neoplasm of lung Eosinophilia Family history of asthma Gastric bleed requiring more than 4 units over 24 hr, ICU, or surgery Hyperlipidemia Hypertension Renal insufficiency Smoking greater than 30 pack years Surgical History H/O wrist surgery Family History Other Hyperlipidemia Hypertension Social History Smoking Status: Current every day smoker tobacco type: cigarettes packs
[2023-05-25 20:17] VITALS: BP 178/93; PULSE 88; RESP 16; TEMP 36.8
== END 2023-05-25 20:19 | disposition home or self-care (01) ==
PROVIDERS: Emergency Provider Student in an Organized Health Care Education/Training Program; PCP Nurse Practitioner Family
DX: M10.072 Idiopathic gout, left ankle and foot (principal); M19.072 Primary osteoarthritis, left ankle and foot; F17.210 Nicotine dependence, cigarettes, uncomplicated; J44.9 Chronic obstructive pulmonary disease, unspecified; I10 Essential (primary) hypertension; E78.5 Hyperlipidemia, unspecified
CPT/HCPCS: 96372; 99283

== ENCOUNTER 2023-07-06 14:44 | Emergency (ER) | payer MEDICARE, SELFPAY ==
[2023-07-06 14:45] VITALS: BP 159/84; PULSE 87; RESP 15; TEMP 36.8; O2SAT 96; BMI 28.8
[2023-07-06 15:00] VITALS: BP 159/88; PULSE 86; O2SAT 95
--- NOTE | 2023-07-06 15:00 | HMH.EDGENADL ---
Discharge Plan Disposition Patient Disposition: Home, Self-Care Prescriptions Prescriptions: No Action amlodipine [Norvasc] 5 mg tablet 5 mg PO DAILY Qty: 30 2RF bisoprolol fumarate 5 mg tablet 5 mg PO DAILY Qty: 90 0RF irbesartan 150 mg tablet 150 mg PO DAILY Qty: 90 0RF albuterol sulfate 90 mcg/actuation HFA aerosol inhaler See Rx Instructions .ROUTE .COMPLEX Qty: 18 1RF Dose Instruction: INHALE 2 PUFF EVERY 6 HOURS IF NEEDED FOR SHORTNESS OF BREATH OR WHEEZING Rx Instructions: INHALE 2 PUFF EVERY 6 HOURS IF NEEDED FOR SHORTNESS OF BREATH OR WHEEZING allopurinol 200 mg tablet 200 mg PO DAILY fluticasone furoate-vilanterol [Breo Ellipta] 100-25 mcg/dose blister with device 1 inh INHALATION DAILY aspirin 81 mg Tablet,Delayed Release (Dr/Ec) 81 mg PO DAILY Qty: 30 0RF atorvastatin 40 mg Tablet 40 mg PO HS Qty: 30 0RF indomethacin 50 mg capsule 50 mg PO TID 7 Days Qty: 21 0RF Rx Instructions: administer with food or milk- may take 50 mg TID for 48 hours, then BID, discontinue 2 to 3 days after resolution of symptoms Referrals Follow up/Referrals: Rodrigo Pickett APRN [Primary Care Provider] - See instructions Activity Restrictions/Add. Instructions Additional Instructions/Restrictions: Please follow-up with your primary care provider. Please return to the emergency department if you develop any new or worsening symptoms or become concerned for your health. Clinical Impressions Clinical Impression: Asymptomatic hypertension Headache Qualifiers: Headache type: unspecified Headache chronicity pattern: acute headache Intractability: not intractable Qualified Code(s): R51.9 - Headache, unspecified Discharge ED Provider: Destin [facility] HPI General Chief complaint: Recheck/Abnormal Lab/Rx Stated complaint: elevated bp Time Seen by Provider: 07/06/23 15:00 History of Present Illness HPI narrative: 52-year-old male, history of poorly controlled hypertension presents with headache. He reports that he felt like he was getting a headache earlier today and checked his blood pressure and it was greater than 180/110. He then presented to the ER. He did not take anything for pain prior to arrival. He did take his home amlodipine prior to arrival. He reports that he was recently admitted for hypertension and they have been increasing his meds. He denies any chest pain vision changes changes in urination or any other symptoms. Reports the headache is posterior nature approximately 6 out of 10 currently. Related Data Home Medications Medication Instructions Recorded Confirmed allopurinol 200 mg tablet 200 mg PO DAILY Gout 04/24/23 07/03/23 fluticasone furoate 100 1 inh inhalation DAILY Breathing 04/24/23 07/03/23 mcg-vilanterol 25 mcg/dose Problems inhalation powder (Breo Ellipta) Previous Rx's Medication Instructions Recorded aspirin 81 mg tablet,delayed 81 mg PO DAILY #30 tabs 04/26/23 release atorvastatin 40 mg tablet 40 mg PO HS #30 tabs 04/26/23 indomethacin 50 mg capsule 50 mg PO TID 7 days #21 caps 05/25/23 bisoprolol fumarate 5 mg tablet 5 mg PO DAILY hypertension #90 tabs 06/28/23 irbesartan 150 mg tablet 150 mg PO DAILY hypertension #90 06/28/23 tabs albuterol sulfate 90 mcg/actuation See Rx Instructions .Route 07/02/23 aerosol inhaler .COMPLEX #18 grams amlodipine 5 mg tablet (Norvasc) 5 mg PO DAILY #30 tabs 07/03/23 Allergies Allergy/AdvReac Type Severity Reaction Status Date / Time amoxicillin [AMOXICILLIN] Allergy Unknown Verified 07/03/23 13:46 Penicillins [PENICILLINS] Allergy Unknown Verified 07/03/23 13:46 [facility] Disclaimer: The information contained in this section may have been updated after the patient was seen, as this information can be updated by other users. Medical History Asthma-chronic obstructive pulmonary disease overlap syndrome Chest pain COPD mixed type Dyspnea on exer
[2023-07-06 15:30] VITALS: BP 146/74; PULSE 76; O2SAT 95
[2023-07-06 16:11] VITALS: BP 146/78; PULSE 78; RESP 16; TEMP 36.8; O2SAT 96
== END 2023-07-06 16:12 | disposition home or self-care (01) ==
PROVIDERS: Emergency Provider Emergency Medicine; PCP Nurse Practitioner Family
DX: R51.9 Headache, unspecified (principal); I10 Essential (primary) hypertension; F17.210 Nicotine dependence, cigarettes, uncomplicated; J44.9 Chronic obstructive pulmonary disease, unspecified; E78.5 Hyperlipidemia, unspecified
CPT/HCPCS: 96374; 96375; 99284

== ENCOUNTER → 2023-07-12 08:41 | Outpatient (CLI) | payer MEDICARE, SELFPAY ==
--- NOTE | 2023-07-12 08:42 | CA_ITS ---
FINAL REPORT TECHNIQUE: Grayscale, color Doppler and duplex Doppler ultrasound of the kidneys, aorta and renal arteries was performed. Multiple velocities were measured. CLINICAL HISTORY: HTN,smoker COMPARISON: None FINDINGS: Aorta velocity: 74 cm/sec Right kidney: 10.2 cm. No evidence of hydronephrosis or mass. Right intrarenal RI: 0.66-0.69 Right renal artery velocity: 167 cm/sec. Right RAR (Renal artery-Aortic Ratio): 2.35 Left Kidney: 11.2 cm. No evidence of hydronephrosis or mass. Left intrarenal RI: 0.64-0.71 Left renal artery velocity: 199 cm/sec. Left RAR (Renal Artery-Aortic Ratio): 2.70 IMPRESSION: Greater than 60% renal artery stenosis on the left. Less than 60% renal artery stenosis on the right. CT angiogram or postcontrast MR angiogram would be more sensitive for evaluation of possible renal artery stenosis. Reviewed, Interpreted and Dictated by Mark Billings MD Transcribed by Alayna Mota Authenticated and [facility]
== END ==
LOC: RT 08:42
PROVIDERS: PCP Nurse Practitioner Family; Visit Provider Nurse Practitioner Family
DX: I10 Essential (primary) hypertension (principal)
CPT/HCPCS: 93976

== ENCOUNTER 2023-07-23 11:00 | Outpatient (RCR) | payer MEDICARE, SELFPAY | END 2023-07-23 12:00 | disposition home or self-care (01) | LOC: OT 11:00 | PROVIDERS: PCP Nurse Practitioner Family; Visit Provider Nurse Practitioner Family | DX: M25.511 Pain in right shoulder (principal); G89.29 Other chronic pain | CPT/HCPCS: 97165 ==

== ENCOUNTER 2023-08-08 09:30 | Outpatient (CLI) | payer MEDICARE, SELFPAY ==
--- NOTE | 2023-08-08 09:31 | MR_ITS ---
FINAL REPORT CLINICAL HISTORY: R Post Shoulder pain limited rom COMPARISON: None FINDINGS: Multiplanar MR imaging of the right shoulder was performed without contrast. There is a complete tear of the distal supraspinatus tendon, with retraction to the mid humeral head. There is a partial tear of the articular surface of the infraspinatus tendon involving greater than 50% thickness of the tendon. There is a complete tear of the distal subscapularis tendon, with tendon retraction and severe subscapularis muscle atrophy. There is mild acromioclavicular degenerative change present with a subacromial spur present. There is a moderate amount of fluid present in the subacromial/subdeltoid bursa. There is degenerative signal in the superior aspect of the labrum that may represent a SLAP tear. There is medial dislocation of the LHBT. A moderate glenohumeral joint effusion is seen. Subchondral cysts are noted in the humeral head. There is mild glenohumeral chondromalacia. There is no evidence of fracture or dislocation. The musculature is intact. There are multiple nonspecific enlarged axillary nodes, favor reactive or neoplastic. IMPRESSION: Complete tear distal supraspinatus tendon with retraction to the mid humeral head. Partial tear articular surface infraspinatus tendon involving greater than 50% of the thickness of that tendon. Complete tear distal subscapularis tendon with tendon retraction severe subscapularis muscle atrophy. Degenerative signal in the superior labrum that may represent a SLAP tear. Medial dislocation of the LHBT. Multiple nonspecific enlarged axillary nodes, favor reactive or neoplastic. Reviewed, Interpreted and Dictated by Onel Gonzalez III, MD Transcribed by Taylor Dey Authenticated and [facility]
== END 2023-08-08 23:59 ==
LOC: RAD 09:31
PROVIDERS: PCP Nurse Practitioner Family; Visit Provider Nurse Practitioner Family
DX: G89.29 Other chronic pain (principal); I10 Essential (primary) hypertension; M25.511 Pain in right shoulder
CPT/HCPCS: 73221

== ENCOUNTER 2023-08-09 07:30 | Outpatient (CLI) | payer MEDICARE, SELFPAY ==
--- NOTE | 2023-08-09 07:37 | CT_ITS ---
FINAL REPORT TECHNIQUE: Axial CT images of the abdomen were obtained with IV contrast only. Coronal reformatted images were also obtained. This study was performed with techniques to keep radiation doses as low as reasonably achievable (ALARA). Individualized dose reduction techniques using automated exposure control or adjustment of mA and/or kV according to the patient''s size were employed. CLINICAL HISTORY: Renal Artery Stenosis COMPARISON: 11/27/2020 FINDINGS: The lung bases are clear. There is fatty infiltration of the liver. The gallbladder appears normal without evidence of gallstones. There is no evidence of biliary ductal dilatation. The pancreas appears normal. The spleen size is within normal limits. There is no evidence of renal mass or hydronephrosis. There is no evidence of renal artery stenosis. There is no evidence of adenopathy. No abnormal fluid collection is seen. No localized inflammatory processes identified. The appendix is normal. IMPRESSION: No evidence of renal artery stenosis. Fatty liver. Reviewed, Interpreted and Dictated by Onel Gonzalez III, MD Transcribed by Alayna Mota Authenticated and [facility]
[2023-08-09 08:16] LABS: Blood Urea Nitrogen 8 mg/dl (9-20); Estimated Glomerular Filt Rate 70 ml/min (>60); GFR (African American) 85 ML/MIN (>60)
[2023-08-09] MEDS: SODIUM CHLORIDE 0.9% 10ML SYR (RAD ONLY) 10 ML IV (08:40)
[2023-08-09] MEDS: IOPAMIDOL-370 (76%);100ML BOTTLE 75 ML IV (08:40)
== END 2023-08-09 23:59 ==
PROVIDERS: PCP Nurse Practitioner Family; Visit Provider Nurse Practitioner Family
DX: I10 Essential (primary) hypertension (principal); I70.1 Atherosclerosis of renal artery
CPT/HCPCS: 36415; 74160; 82565; 84520; Q9967

== ENCOUNTER 2023-08-15 12:27 | Outpatient (CLI) | payer MEDICARE, SELFPAY ==
--- NOTE | 2023-08-15 12:31 | XR_ITS ---
FINAL REPORT CLINICAL HISTORY: rt shoulder pain FINDINGS: Right shoulder Three views were obtained. There is no acute fracture or dislocation. There is mild AC joint degenerative change. There is a bony mass inferior to the glenoid, likely an enchondroma. No soft tissue abnormality is identified. IMPRESSION: Bony mass inferior to the glenoid, likely an enchondroma. This could be further evaluated with CT or MRI. Reviewed, Interpreted and Dictated by Onel Gonzalez III, MD Transcribed by Matilda Pak Authenticated and [facility]
== END 2023-08-15 23:59 ==
LOC: RAD 12:29
PROVIDERS: PCP Nurse Practitioner Family; Visit Provider Orthopaedic Surgery
DX: M25.511 Pain in right shoulder (principal)
CPT/HCPCS: 73030

== ENCOUNTER 2023-08-16 07:46 | Emergency (ER) | payer MEDICARE, SELFPAY ==
[2023-08-16 07:47] VITALS: BP 187/99; PULSE 71; RESP 15; TEMP 36.4; O2SAT 99; BMI 28.0
--- NOTE | 2023-08-16 07:50 | ED_ITS ---
Discharge Plan Disposition Patient Disposition: Home, Self-Care Condition: Good Prescriptions Prescriptions: New oxycodone 5 mg tablet 5 mg PO Q8H PRN (Reason: pain) Qty: 10 0RF No Action amlodipine [Norvasc] 5 mg tablet 5 mg PO DAILY Qty: 30 2RF bisoprolol fumarate 5 mg tablet 5 mg PO DAILY Qty: 90 0RF irbesartan 150 mg tablet 150 mg PO DAILY Qty: 90 0RF albuterol sulfate 90 mcg/actuation HFA aerosol inhaler See Rx Instructions .ROUTE .COMPLEX Qty: 18 1RF Dose Instruction: INHALE 2 PUFF EVERY 6 HOURS IF NEEDED FOR SHORTNESS OF BREATH OR WHEEZING Rx Instructions: INHALE 2 PUFF EVERY 6 HOURS IF NEEDED FOR SHORTNESS OF BREATH OR WHEEZING allopurinol 200 mg tablet 200 mg PO DAILY fluticasone furoate-vilanterol [Breo Ellipta] 100-25 mcg/dose blister with device 1 inh INHALATION DAILY aspirin 81 mg Tablet,Delayed Release (Dr/Ec) 81 mg PO DAILY Qty: 30 0RF atorvastatin 40 mg Tablet 40 mg PO HS Qty: 30 0RF indomethacin 50 mg capsule 50 mg PO TID 7 Days Qty: 21 0RF Rx Instructions: administer with food or milk- may take 50 mg TID for 48 hours, then BID, discontinue 2 to 3 days after resolution of symptoms Referrals Follow up/Referrals: Rodrigo Pickett APRN [Primary Care Provider] - See instructions Emerson Ross DO [Staff Physician] - See instructions Activity Restrictions/Add. Instructions Additional Instructions/Restrictions: Please follow-up with orthopedic doctor. Please use the pain medication as prescribed in addition to Tylenol, ibuprofen, please reserve the pain medication as prescribed for breakthrough pain. Please use crutches, and limit any weightbearing if you are having significant pain Clinical Impressions Clinical Impression: Fracture of distal end of left tibia Qualifiers: Encounter type: initial encounter Fracture type: closed Fracture morphology: other fracture Qualified Code(s): S82.392A - Other fracture of lower end of left tibia, initial encounter for closed fracture Discharge ED Provider: Ulysses Denis Adult HPI General Chief complaint: Fall Stated complaint: left ankle pain Time Seen by Provider: 08/16/23 07:49 History of Present Illness HPI narrative: Patient presents for evaluation of left ankle injury sustained shortly prior to arrival. He states he was walking at [facility] and slipped in the setting of snowy weather. He has difficulty recalling whether he had eversion or inversion injury. He has had difficulty bearing weight since. He denies any chronic medical issues. He states he heard a popping sound when he rolled his ankle. His pain is most pronounced in the medial aspect of his left ankle but is diffusely throughout his ankle and foot. He denies any pain elsewhere. He denies any head injury, loss of consciousness, blood thinner usage. He denies any head injury. No previous therapies. Pain is severe and nonradiating. No numbness or tingling. No appreciable swelling. No knee pain. Related Data Home Medications Medication Instructions Recorded Confirmed allopurinol 200 mg tablet 200 mg PO DAILY Gout 04/24/23 08/16/23 fluticasone furoate 100 1 inh inhalation DAILY Breathing 04/24/23 08/16/23 mcg-vilanterol 25 mcg/dose Problems inhalation powder (Breo Ellipta) Previous Rx's Medication Instructions Recorded aspirin 81 mg tablet,delayed 81 mg PO DAILY #30 tabs 04/26/23 release atorvastatin 40 mg tablet 40 mg PO HS #30 tabs 04/26/23 indomethacin 50 mg capsule 50 mg PO TID 7 days #21 caps 05/25/23 bisoprolol fumarate 5 mg tablet 5 mg PO DAILY hypertension #90 tabs 06/28/23 irbesartan 150 mg tablet 150 mg PO DAILY hypertension #90 06/28/23 tabs albuterol sulfate 90 mcg/actuation See Rx Instructions .Route 07/02/23 aerosol inhaler .COMPLEX #18 grams amlodipine 5 mg tablet (Norvasc) 5 mg PO DAILY #30 tabs 07/03/23 oxycodone 5 mg tablet 5 mg PO Q8H PRN pain #10 tabs 08/16/23 Allergies Allergy/AdvReac Type Severity Reaction Status Date / Time amoxicillin [AMOXICILLIN] Allergy Unknown Verified 08/15/23 13:00 Penicillins [PENICILLINS] Allergy Unknown Verified 08/15/23 13:00 [facility] Disclaimer: The information contained in this section may have been updated after the patient was seen, as this information can be updated by other users. Medical History Asthma-chronic obstructive pulmonary disease overlap syndrome Chest pain COPD mixed type Dyspnea on exertion Encounter for screening for malignant neoplasm of lung Eosinophilia Family history of asthma Gastric bleed requiring more than 4 units over 24 hr, ICU, or surgery Hyperlipidemia Renal insufficiency Surgical History H/O wrist surgery Family History Other Hyperlipidemia Hypertension Social History Smoking Status: Current every day smoker tobacco type: cigarettes packs per day: 1 second hand exposure: No alcohol intake: never substance use type: denies use current occupational status: employed Travel in the last 8 weeks: None household members: friend(s) housing: apartment ROS Obtained: Yes Systems reviewed as appropriate & no additional complaints except as documented As per HPI Physical Exam General General appearance: alert and in distress Head Head exam: atraumatic and normocephalic Eye Eye exam: Present normal appearance Neck Neck exam: Present normal inspection Chest Chest inspection: Present normal inspection and symmetric chest wall rise Respiratory Respiratory exam: Present normal lung sounds bilaterally; Absent respiratory distress Cardiovascular Cardiovascular exam: Present regular rate and normal rhythm Abdominal Exam Abdominal exam: Present soft Extremities Exam Extremities exam: Present other (Left lower extremity with distal sensation and pulses intact, no appreciable ecchymosis or open injury. Range of motion within normal limits. Medial malleoli or navicular tenderness to palpation.) Neurological Exam Neurological exam: Present alert and oriented X3 Psychiatric Psychiatric exam: Present normal affect and normal mood Skin Skin exam: Present warm and dry Medical Decision Making Medical Records Medical records reviewed: Yes I reviewed the patient's medical records. [facility] Inquiry Pt receiving controlled substance: No Vital Signs: 08/16/23 07:47 08/16/23 09:00 08/16/23 09:30 Temperature 97.6 F Temperature Source Oral Pulse Rate 68 81 Pulse Rate [Left Radial] 71 Respiratory Rate 15 Blood Pressure 160/95 H 145/90 H Blood Pressure [Right Arm] 187/99 H Blood Pressure Mean [Right Arm] 128 Blood Pressure Source Blood Pressure Position 02 Sat by Pulse Oximetry 99 96 97 Oxygen Delivery Method Room Air Room Air Room Air 08/16/23 10:09 Temperature 97.9 F Temperature Source Oral Pulse Rate 80 Pulse Rate [Left Radial] Respiratory Rate 18 Blood Pressure 163/110 H Blood Pressure [Right Arm] Blood Pressure Mean [Right Arm] Blood Pressure Source Automatic Cuff Blood Pressure Position Sitting 02 Sat by Pulse Oximetry Oxygen Delivery Method Room Air Orders (Tests/Meds): ED MEDICATIONS Discontinued Medications Generic Name Dose Route Start Last Admin Trade Name Yoly PRN Reason Stop Dose Admin Acetaminophen 1,000 mg 08/16/23 07:59 08/16/23 08:04 Acetaminophen 500mg Tab PO 08/16/23 08:00 1,000 mg ONCE ONE Administration Ibuprofen 600 mg 08/16/23 07:59 08/16/23 08:05 Ibuprofen 600 Mg Tablet PO 08/16/23 08:00 600 mg ONCE ONE Administration Oxycodone HCl 5 mg 08/16/23 07:59 08/16/23 08:05 Oxycodone 5mg Immediate Release Tablet PO 08/16/23 08:00 5 mg ONCE ONE Administration Oxycodone HCl 5 mg 08/16/23 09:44 08/16/23 09:48 Oxycodone 5mg Immediate Release Tablet PO 08/16/23 09:45 5 mg ONCE ONE Administration Sodium Chloride 10 ml 08/16/23 08:51 Sodium Chloride 0.9% 10ml Flush Syringe IV 09/15/23 08:50 NEEDED PRN Maintain IV Site ORDERS Category Date Time Status Foot XR left minimum 3 views [XR foot LT min 3V] Stat Exams 08/16/23 07:59 Completed XR ankle LT min 3V Stat Exams 08/16/23 07:59 Completed Medical Decision Narrative: Patient with history and exam per above presenting for evaluation of left ankle injury Diagnoses considered include Fracture, soft tissue injury, vascular injury, nerve injury. Clinically, minimal evidence to suggest any vascular injury or nerve injury at this time, risks of exposure to radiation outweigh benefits based off my history and physical examination at this time. This was explained to the patient. ED workup and treatment included: ED MEDICATIONS Discontinued Medications Generic Name Dose Route Start Last Admin Trade Name Freq PRN Reason Stop Dose Admin Acetaminophen 1,000 mg 08/16/23 07:59 08/16/23 08:04 Acetaminophen 500mg Tab PO 08/16/23 08:00 1,000 mg ONCE ONE Administration Ibuprofen 600 mg 08/16/23 07:59 08/16/23 08:05 Ibuprofen 600 Mg Tablet PO 08/16/23 08:00 600 mg ONCE ONE Administration Oxycodone HCl 5 mg 08/16/23 07:59 08/16/23 08:05 Oxycodone 5mg Immediate Release Tablet PO 08/16/23 08:00 5 mg ONCE ONE Administration Oxycodone HCl 5 mg 08/16/23 09:44 08/16/23 09:48 Oxycodone 5mg Immediate Release Tablet PO 08/16/23 09:45 5 mg ONCE ONE Administration Sodium Chloride 10 ml 08/16/23 08:51 Sodium Chloride 0.9% 10ml Flush Syringe IV 09/15/23 08:50 NEEDED PRN Maintain IV Site ORDERS Category Date Time Status Foot XR left minimum 3 views [XR foot LT min 3V] Stat Exams 08/16/23 07:59 Completed XR ankle LT min 3V Stat Exams 08/16/23 07:59 Completed Imaging was independently visualized and interpreted by me, significant for nondisplaced distal tibial fracture. Please refer to radiology report for full details. I discussed this case with orthopedic surgeon over the phone regarding recommendations for management. Patient is deemed stable for outpatient follow- up after boot placement, with weightbearing as tolerated. My clinical impression at this time is most consistent with isolated nondisplaced distal tibial fracture I discussed my clinical impression with patient and answered all questions. At this time, the evidence for any other entities in the differential is insufficient to warrant any further testing or ED observation. This was explained to the patient. The patient was advised that persistent or worsening symptoms require further evaluation. I confirmed the patient's understanding of this discussion. Critical Care Critical Care Time Critical Care Time: No
--- NOTE | 2023-08-16 07:57 | PC.NURSE ---
DR DIAZ AT BEDSIDE
--- NOTE | 2023-08-16 07:59 | XR_ITS ---
FINAL REPORT CLINICAL HISTORY: slip on ice, left ankle/foot pain, mild navicular TTP COMPARISON: 11/14/2022 FINDINGS: LEFT FOOT: Three views of the left foot were obtained. There is no acute fracture or dislocation. There is mild hallux valgus deformity. There is mild degenerative change of the first MTP. Calcaneal spurs are noted. There is no soft tissue abnormality. IMPRESSION: No acute bony abnormality. Reviewed, Interpreted and Dictated by Onel Gonzalez III, MD Transcribed by Alayna Mota Authenticated and [facility]
--- NOTE | 2023-08-16 07:59 | XR_ITS ---
FINAL REPORT CLINICAL HISTORY: slip on ice, left ankle pain, unsure if inversion or eversion inj COMPARISON: 11/14/2022 FINDINGS: LEFT ANKLE: Three views of the left ankle were obtained. There is a lucency in the posterior distal tibia seen on the lateral view only consistent with nondisplaced fracture. Calcification inferior to the medial malleolus is of uncertain age but favored to be chronic. The joint spaces and mortise are intact. There is soft tissue swelling. IMPRESSION: Nondisplaced fracture posterior distal tibia. Reviewed, Interpreted and Dictated by Onel Gonzalez III, MD Transcribed by Alayna Mota Authenticated and . [facility]
[2023-08-16] MEDS: ACETAMINOPHEN 500MG TAB 1000 MG PO (08:04)
[2023-08-16] MEDS: IBUPROFEN 600 MG TABLET PO (08:05)
[2023-08-16] MEDS: OXYCODONE 5MG IMMEDIATE RELEASE TABLET 5 MG PO ×2 (08:05→09:48)
--- NOTE | 2023-08-16 08:20 | PC.NURSE ---
PT TO XR
[2023-08-16 09:00] VITALS: BP 160/95; PULSE 68; O2SAT 96
[2023-08-16 09:30] VITALS: BP 145/90; PULSE 81; O2SAT 97
--- NOTE | 2023-08-16 09:43 | PC.NURSE ---
Dr. Ross pagefederico
--- NOTE | 2023-08-16 09:46 | PC.NURSE ---
Dr. Denis speaking with Dr. Ross
--- NOTE | 2023-08-16 09:58 | PC.NURSE ---
Dr. Ross to follow up with pt outpatient
--- NOTE | 2023-08-16 09:59 | PC.NURSE ---
DR DIAZ AT BEDSIDE TO UPDATE PT
[2023-08-16 10:09] VITALS: BP 163/110; PULSE 80; RESP 18; TEMP 36.6; O2SAT 98
== END 2023-08-16 10:12 | disposition home or self-care (01) ==
PROVIDERS: Emergency Provider Emergency Medicine; PCP Nurse Practitioner Family
DX: S82.392A Other fracture of lower end of left tibia, initial encounter for closed fracture (principal); J44.9 Chronic obstructive pulmonary disease, unspecified; D72.10 Eosinophilia, unspecified; E78.5 Hyperlipidemia, unspecified; F17.210 Nicotine dependence, cigarettes, uncomplicated; W18.40XA Slipping, tripping and stumbling without falling, unspecified, initial encounter
CPT/HCPCS: 73610; 73630; 99284

== ENCOUNTER 2023-09-17 12:52 | Outpatient (CLI) | payer MEDICARE, SELFPAY ==
--- NOTE | 2023-09-17 12:58 | XR_ITS ---
FINAL REPORT CLINICAL HISTORY: fracture follow-up COMPARISON: 08/16/2020 FINDINGS: LEFT ANKLE Three views demonstrate a vertical fracture through the posterior malleolus, nondisplaced, and with mild callus formation. The visualized joint spaces are normally aligned. There is a small plantar spur. There is a minimal Zeus deformity. The soft tissues are unremarkable. IMPRESSION: Posterior malleolus fracture with mild callus formation. Reviewed, Interpreted and Dictated by Mark Billings MD Transcribed by Alayna Mota Authenticated and . [facility]
== END 2023-09-17 23:59 ==
LOC: RAD 12:53
PROVIDERS: PCP Nurse Practitioner Family; Visit Provider Orthopaedic Surgery
DX: S82.899A Other fracture of unspecified lower leg, initial encounter for closed fracture (principal); M25.572 Pain in left ankle and joints of left foot
CPT/HCPCS: 73610

== ENCOUNTER 2023-10-15 13:12 | Outpatient (CLI) | payer MEDICARE, SELFPAY ==
--- NOTE | 2023-10-15 13:17 | XR_ITS ---
FINAL REPORT CLINICAL HISTORY: Lt Ankle fx COMPARISON: 09/17/2023 FINDINGS: LEFT ANKLE: Three views of the left ankle were obtained. There is a fracture of the posterior distal tibia seen on the lateral view. Bony alignment is stable. There is mild callus formation at the fracture site. The joint spaces and mortise are intact. Calcaneal spurs are noted. There is no soft tissue abnormality. IMPRESSION: Posterior tibial fracture with mild callus formation. Reviewed, Interpreted and Dictated by Onel Gonzalez III, MD Transcribed by Alayna Mota Authenticated and . [facility]
== END 2023-10-15 23:59 ==
LOC: RAD 13:13
PROVIDERS: PCP Nurse Practitioner Family; Visit Provider Orthopaedic Surgery
DX: S82.302A Unspecified fracture of lower end of left tibia, initial encounter for closed fracture (principal)
CPT/HCPCS: 73610

== ENCOUNTER 2023-11-01 10:31 | Emergency (ER) | payer MEDICARE, SELFPAY ==
[2023-11-01 10:40] VITALS: BP 177/93; PULSE 76; RESP 20; TEMP 37.4; O2SAT 97; BMI 29.0
--- NOTE | 2023-11-01 10:58 | EXP.UTC ---
Discharge Plan Disposition Patient Disposition: Home, Self-Care Condition: Good Prescriptions Prescriptions: New methylprednisolone 4 mg Tablets,Dose Pack 4 mg PO DIRECTED 6 Days Qty: 21 0RF Rx Instructions: Take 1 pack as directed for 6 days No Action celecoxib [Celebrex] 200 mg capsule 200 mg PO BID Qty: 60 2RF amlodipine [Norvasc] 5 mg tablet 5 mg PO DAILY Qty: 90 0RF irbesartan 150 mg tablet 150 mg PO DAILY Qty: 90 0RF bisoprolol fumarate 5 mg tablet 5 mg PO DAILY Qty: 90 0RF fluticasone furoate-vilanterol [Breo Ellipta] 100-25 mcg/dose blister with device See Rx Instructions .ROUTE .COMPLEX Qty: 60 3RF Dose Instruction: INHALE 1 PUFF BY MOUTH ONCE A DAY Rx Instructions: INHALE 1 PUFF BY MOUTH ONCE A DAY albuterol sulfate 90 mcg/actuation HFA aerosol inhaler See Rx Instructions .ROUTE .COMPLEX Qty: 18 0RF Dose Instruction: INHALE 2 PUFF EVERY 6 HOURS IF NEEDED FOR SHORTNESS OF BREATH OR WHEEZING Rx Instructions: INHALE 2 PUFF EVERY 6 HOURS IF NEEDED FOR SHORTNESS OF BREATH OR WHEEZING allopurinol 200 mg tablet 200 mg PO DAILY aspirin 81 mg Tablet,Delayed Release (Dr/Ec) 81 mg PO DAILY Qty: 30 0RF atorvastatin 40 mg Tablet 40 mg PO HS Qty: 30 0RF Referrals Follow up/Referrals: Rodrigo Pickett APRN [Primary Care Provider] - See instructions Activity Restrictions/Add. Instructions Additional Instructions/Restrictions: Rest the extremity, Elevate the extremity as tolerated while you are resting. Take the medications as directed. Don't start the oral steroids (medrol dose pack) until tomorrow since you had the shots here today. Follow up with your regular doctor. GO TO THE ER FOR ANY WORSENING SYMPTOMS Clinical Impressions Clinical Impression: Exacerbation of gout Instructions Patient Instructions: DI for Gout, Methylprednisolone, Ketorolac Injection, Dexamethasone Injection Discharge ED Provider: Bud Landry [facility] General Stated complaint: gout in right toe Mode of Arrival: Ambulatory Source of Information: Patient Limitations: No Limitations Time Seen by Provider: 11/01/23 10:58 Description of Symptoms (Recalled from Triage Doc. by RN): PATIENT C/O GOUT FLARE UP TO RIGHT GREAT TOE SINCE YESTERDAY HEENT Symptoms (Recalled from RN notes): No Resp Symptoms (Recalled from RN notes): No Skin Symptoms (Recalled from RN notes): No MS Symptoms (Recalled from RN notes): Yes Functional Status (Recalled from RN notes): WNL History of Present Illness Provider Complaint: He states that he has had pain in the joint just above his right great toe since yesterday. He states that he has a history of gout and this is his normal symptoms he gets when he has a gout flare up. He has recently moved and he missed his daily allopurinol for the past 1 week approx. He denies any injury, fever/chills. Related Data Home Medications Medication Instructions Recorded Confirmed allopurinol 200 mg tablet 200 mg PO DAILY Gout 04/24/23 10/15/23 Previous Rx's Medication Instructions Recorded aspirin 81 mg tablet,delayed 81 mg PO DAILY #30 tabs 04/26/23 release atorvastatin 40 mg tablet 40 mg PO HS #30 tabs 04/26/23 celecoxib 200 mg capsule (Celebrex) 200 mg PO BID pain #60 caps 09/17/23 amlodipine 5 mg tablet (Norvasc) 5 mg PO DAILY #90 tabs 09/27/23 bisoprolol fumarate 5 mg tablet 5 mg PO DAILY hypertension #90 tabs 09/27/23 irbesartan 150 mg tablet 150 mg PO DAILY hypertension #90 09/27/23 tabs albuterol sulfate 90 mcg/actuation See Rx Instructions .Route 11/01/23 aerosol inhaler .COMPLEX #18 grams fluticasone furoate 100 See Rx Instructions .Route 11/01/23 mcg-vilanterol 25 mcg/dose .COMPLEX #60 blisters inhalation powder (Breo Ellipta) methylprednisolone 4 mg tablets in 4 mg PO DIRECTED 6 days #21 tabs 11/01/23 a dose pack Allergies Allergy/AdvReac Type Severity Reaction Status Date / Time amoxicillin [AMOXICILLIN] Allergy Unknown Verified 10/15/23 14:25 Penicillins [PENICILLINS] Allergy Unknown Verified 10/15/23 14:25 Worker's Comp Is this a Worker's Comp case?: No [facility] Disclaimer: The information contained in this section may have been updated after the patient was seen, as this information can be updated by other users. Medical History Renal insufficiency Hyperlipidemia Chest pain Encounter for screening for malignant neoplasm of lung Eosinophilia Family history of asthma Dyspnea on exertion Asthma-chronic obstructive pulmonary disease overlap syndrome COPD mixed type Gastric bleed requiring more than 4 units over 24 hr, ICU, or surgery Surgical History H/O wrist surgery Family History Other Hyperlipidemia Hypertension Social History Smoking Status: Current every day smoker tobacco type: cigarettes packs per day: 1 second hand exposure: No alcohol intake: never substance use type: denies use current occupational status: employed Travel in the last 8 weeks: None household members: friend(s) housing: apartment ROS Obtained: Yes All systems reviewed & no additional complaints except as documented Constitutional Constitutional: Denies chills and Denies fever(s) Eyes Eyes: Denies eye discharge ENT Ears, Nose, Mouth, and Throat: Denies dizziness, Denies otalgia and Denies sore throat Cardiovascular Cardiovascular: Denies chest pain Respiratory Respiratory: Denies shortness of breath, Denies chest congestion, Denies cough, Denies stridor and Denies wheezing Gastrointestinal Gastrointestingal: Denies nausea or vomiting Musculoskeletal Musculoskeletal: Reports as per HPI Integumentary/Breasts Skin/Breast: Denies rash Neurologic Neurologic: Denies dizziness and Denies paresthesias Allergic/Immunologic Allergic/Immunologic: Denies wheezing Physical Exam General General appearance: alert and in no apparent distress Head Head exam: atraumatic, normocephalic and normal inspection Eye Eye exam: Present normal appearance, PERRL and EOMI ENT ENT exam: Present normal exam, normal oropharynx, mucous membranes moist, TM's normal bilaterally and normal external ear exam Neck Neck exam: Present normal inspection, full ROM and trachea midline; Absent meningismus or lymphadenopathy Chest Chest inspection: Present normal inspection and symmetric chest wall rise; Absent tenderness Respiratory Respiratory exam: Present normal lung sounds bilaterally; Absent respiratory distress Cardiovascular Cardiovascular exam: Present regular rate and normal rhythm; Absent JVD Abdominal Exam Abdominal exam: Present soft and normal bowel sounds; Absent distention, tenderness or guarding Extremities Exam Extremities exam: Present normal capillary refill; Absent calf tenderness Expanded Lower Extremity Exam Right: Hip/Pelvis exam: Present normal inspection and full ROM; Absent tenderness Upper leg exam: Present full ROM; Absent tenderness Knee exam: Present normal inspection, full ROM and knee extension intact; Absent tenderness Lower leg exam: Present normal inspection, full ROM and Achilles tendon intact; Absent tenderness or Homans' sign Ankle exam: Present normal inspection and full ROM; Absent tenderness Foot/toe exam: Present full ROM, tenderness and erythema; Absent swelling, abrasion, laceration, ecchymosis, deformity, crepitus, dislocation, amputation, puncture wound, foreign body, calcaneal tenderness, tenderness at base of 5th metatarsal, nail avulsion or subungual hematoma Neurovascular/Tendon exam: Present normal capillary refill, normal 2-point discrimination and normal fine/light touch; Absent pulse deficit, motor deficit, sensory deficit, tendon deficit, extremity cold to touch or pallor Gait: observed and limited by pain Back Exam Back exam: Present normal inspection; Absent tenderness Neurological Exam Neurological exam: Present alert and oriented X3 Psychiatric Psychiatric exam: Present normal affect and normal mood Skin Skin exam: Present warm, dry, intact and normal color Lymphatic Lymphatic Findings: no adenopathy Medical Decision Making Medical Records Medical records reviewed: No I reviewed the patient's medical records. [place] Inquiry Pt receiving controlled substance: No Vital Signs: 11/01/23 10:40 Temperature 99.3 F Temperature Source Oral Pulse Rate [Left Brachial] 76 Respiratory Rate 20 Blood Pressure [Left Arm] 177/93 H Blood Pressure Mean [Left Arm] 121 Blood Pressure Source [Left Arm] Automatic Cuff Blood Pressure Position [Left Arm] Sitting 02 Sat by Pulse Oximetry 97 Oxygen Delivery Method Room Air
[2023-11-01 11:15] VITALS: BP 177/93; PULSE 76; RESP 20; TEMP 37.4; O2SAT 97
[2023-11-01] MEDS: DEXAMETHASONE 4MG/ML 1ML VIAL 8 MG IM (11:15)
[2023-11-01] MEDS: KETOROLAC 60MG/2ML VIAL 60 MG IM (11:15)
== END 2023-11-01 11:30 | disposition home or self-care (01) ==
PROVIDERS: Emergency Provider Nurse Practitioner Family; PCP Nurse Practitioner Family
DX: M10.071 Idiopathic gout, right ankle and foot (principal); F17.210 Nicotine dependence, cigarettes, uncomplicated; J44.9 Chronic obstructive pulmonary disease, unspecified; E78.5 Hyperlipidemia, unspecified; I10 Essential (primary) hypertension
CPT/HCPCS: 96372; 99212; 99214; G0463

== ENCOUNTER 2023-11-14 12:30 | Outpatient (CLI) | payer MEDICARE, SELFPAY ==
--- NOTE | 2023-11-14 12:37 | XR_ITS ---
FINAL REPORT CLINICAL HISTORY: left ankle fx COMPARISON: 10/15/2023 FINDINGS: LEFT ANKLE Three views demonstrate no acute fracture or dislocation. There is been further interval healing of the posterior malleolus fracture. There is an ossific density inferior to the medial malleolus which may be related to sequela from old trauma. There is a small plantar spur. The visualized joint spaces are normally aligned. The ankle mortise is intact. There is mild soft tissue edema over the lateral malleolus. IMPRESSION: No acute bony abnormality. Further healing of the posterior malleolar fracture. Reviewed, Interpreted and Dictated by Mark Billings MD Transcribed by Alayna Mota Authenticated and [facility]
== END 2023-11-14 23:59 ==
LOC: RAD 12:31
PROVIDERS: PCP Nurse Practitioner Family; Visit Provider Orthopaedic Surgery
DX: M25.572 Pain in left ankle and joints of left foot (principal)
CPT/HCPCS: 73610

== ENCOUNTER 2024-02-07 09:51 | Emergency (ER) | payer MEDICARE, SELFPAY ==
[2024-02-07 09:55] VITALS: BP 140/101; PULSE 102; RESP 20; TEMP 36.6; O2SAT 99; BMI 29.5
--- NOTE | 2024-02-07 10:03 | EXP.UTC ---
Discharge Plan Disposition Patient Disposition: Home, Self-Care Condition: Good Prescriptions Prescriptions: New methylprednisolone 4 mg Tablets,Dose Pack 4 mg PO DIRECTED 6 Days Qty: 21 0RF Rx Instructions: Take 1 pack as directed for 6 days No Action amlodipine 5 mg tablet 5 mg PO DAILY allopurinol 100 mg tablet 100 mg PO DAILY irbesartan 150 mg tablet 150 mg PO DAILY albuterol sulfate 90 mcg/actuation HFA aerosol inhaler 1 puff INHALATION Q6HP PRN (Reason: Asthma) fluticasone furoate-vilanterol [Breo Ellipta] 100-25 mcg/dose blister with device 1 ea INHALATION DAILY Referrals Follow up/Referrals: Rodrigo Pickett APRN [Primary Care Provider] - See instructions Activity Restrictions/Add. Instructions Additional Instructions/Restrictions: Drink plenty of fluids. Take the medications as directed. Follow up with your regular doctor. GO TO THE ER FOR ANY WORSENING SYMPTOMS Don't start the oral steroids (medrol dose pack) until tomorrow since you had the shot her Clinical Impressions Clinical Impression: Gout attack Instructions Patient Instructions: Gout, DI for Gout, Ketorolac Injection, Dexamethasone Injection Discharge ED Provider: Bud Landry [facility] General Stated complaint: Pain R foot, Pat states gout Time Seen by Provider: 02/07/24 10:03 History of Present Illness Provider Complaint: He states that he has had pain and tenderness of the area around the base of his great toe on his right foot for the past 2 days. He denies any injury. He states that he has a history of gout and that is what he is having now. He refuses any x-rays or testing. Related Data Home Medications Medication Instructions Recorded Confirmed albuterol sulfate 90 mcg/actuation 1 puff inhalation Q6HP PRN Asthma 02/07/24 02/07/24 aerosol inhaler allopurinol 100 mg tablet 100 mg PO DAILY 02/07/24 02/07/24 amlodipine 5 mg tablet 5 mg PO DAILY 02/07/24 02/07/24 fluticasone furoate 100 1 ea inhalation DAILY 02/07/24 02/07/24 mcg-vilanterol 25 mcg/dose inhalation powder (Breo Ellipta) irbesartan 150 mg tablet 150 mg PO DAILY 02/07/24 02/07/24 Previous Rx's Medication Instructions Recorded methylprednisolone 4 mg tablets in 4 mg PO DIRECTED 6 days #21 tabs 02/07/24 a dose pack Allergies Allergy/AdvReac Type Severity Reaction Status Date / Time amoxicillin [AMOXICILLIN] Allergy Unknown Verified 11/14/23 13:08 Penicillins [PENICILLINS] Allergy Unknown Verified 11/14/23 13:08 [facility] Disclaimer: The information contained in this section may have been updated after the patient was seen, as this information can be updated by other users. Medical History (Updated 02/07/24 @ 10:52 by Bud Landry APRN) Gout Hypertension Renal insufficiency Hyperlipidemia Chest pain Encounter for screening for malignant neoplasm of lung Eosinophilia Family history of asthma Dyspnea on exertion Asthma-chronic obstructive pulmonary disease overlap syndrome COPD mixed type Gastric bleed requiring more than 4 units over 24 hr, ICU, or surgery Surgical History H/O wrist surgery Family History Other Hyperlipidemia Hypertension Social History Smoking Status: Current every day smoker tobacco type: cigarettes packs per day: 1 second hand exposure: No alcohol intake: never substance use type: denies use current occupational status: employed Travel in the last 8 weeks: None household members: friend(s) housing: apartment ROS Obtained: Yes All systems reviewed & no additional complaints except as documented Constitutional Constitutional: Denies chills and Denies fever(s) Eyes Eyes: Denies eye discharge ENT Ears, Nose, Mouth, and Throat: Denies dizziness, Denies otalgia and Denies sore throat Cardiovascular Cardiovascular: Denies chest pain Respiratory Respiratory: Denies shortness of breath, Denies chest congestion, Denies cough, Denies stridor and Denies wheezing Gastrointestinal Gastrointestingal: Denies nausea or vomiting Musculoskeletal Musculoskeletal: Reports as per HPI Integumentary/Breasts Skin/Breast: Denies redness, Denies rash and Denies wounds Neurologic Neurologic: Denies dizziness and Denies paresthesias Allergic/Immunologic Allergic/Immunologic: Denies wheezing Physical Exam General General appearance: alert and in no apparent distress Head Head exam: atraumatic, normocephalic and normal inspection Eye Eye exam: Present normal appearance, PERRL and EOMI ENT ENT exam: Present normal exam, normal oropharynx, mucous membranes moist, TM's normal bilaterally and normal external ear exam Neck Neck exam: Present normal inspection, full ROM and trachea midline; Absent meningismus or lymphadenopathy Chest Chest inspection: Present normal inspection and symmetric chest wall rise; Absent tenderness Respiratory Respiratory exam: Present normal lung sounds bilaterally; Absent respiratory distress Cardiovascular Cardiovascular exam: Present regular rate and normal rhythm; Absent JVD Abdominal Exam Abdominal exam: Present soft and normal bowel sounds; Absent distention, tenderness or guarding Extremities Exam Extremities exam: Present normal capillary refill; Absent calf tenderness Expanded Lower Extremity Exam Right: Knee exam: Present normal inspection, full ROM and knee extension intact; Absent tenderness Lower leg exam: Present normal inspection, full ROM and Achilles tendon intact; Absent tenderness or Homans' sign Ankle exam: Present normal inspection and full ROM; Absent tenderness, swelling, abrasion, laceration, ecchymosis, deformity, crepitus, dislocation, erythema, tenderness over talofibular lig or anterior draw sign Foot/toe exam: Present tenderness; Absent full ROM, swelling, abrasion, laceration, ecchymosis, deformity, crepitus, dislocation, erythema, amputation, puncture wound, foreign body, calcaneal tenderness, tenderness at base of 5th metatarsal, nail avulsion or subungual hematoma Neurovascular/Tendon exam: Present normal capillary refill, normal 2-point discrimination and normal fine/light touch; Absent pulse deficit, motor deficit, sensory deficit, tendon deficit, extremity cold to touch or pallor Gait: observed and limited by pain Back Exam Back exam: Present normal inspection; Absent tenderness Neurological Exam Neurological exam: Present alert and oriented X3 Psychiatric Psychiatric exam: Present normal affect and normal mood Skin Skin exam: Present warm, dry, intact and normal color Lymphatic Lymphatic Findings: no adenopathy Medical Decision Making Medical Records Medical records reviewed: No I reviewed the patient's medical records. [place] Inquiry Pt receiving controlled substance: No
[2024-02-07] MEDS: KETOROLAC 60MG/2ML VIAL 60 MG IM (10:25)
[2024-02-07] MEDS: DEXAMETHASONE 4MG/ML 1ML VIAL 8 MG IM (10:25)
[2024-02-07 10:27] VITALS: BP 140/101; PULSE 102; RESP 20; TEMP 36.6; O2SAT 99
== END 2024-02-07 10:56 | disposition home or self-care (01) ==
PROVIDERS: Emergency Provider Nurse Practitioner Family; PCP Nurse Practitioner Family
DX: M10.071 Idiopathic gout, right ankle and foot (principal); M79.674 Pain in right toe(s)
CPT/HCPCS: 96372; 99212; 99214; G0463; J1100; J1885

== ENCOUNTER 2024-03-05 14:18 | Outpatient (CLI) | payer MEDICARE, SELFPAY ==
[2024-03-05 14:22] LABS: Microscopic, Urine URINE MICROSCOPIC (MICROSCOPIC)
--- NOTE | 2024-03-05 14:30 | MR_ITS ---
FINAL REPORT CLINICAL HISTORY: chronic pain in left ankle. COMPARISON: None FINDINGS: Multiplanar MR imaging of the left ankle was performed without and with contrast. There is a subacute nondisplaced fracture of the posterior distal tibia. No acute fracture is seen. No osteochondral lesion is identified. There is thickening of the anterior talofibular ligament and calcaneofibular ligament which may represent sequela from prior partial tears. There is mild posterior tibial and peroneus longus tenosynovitis. The posterior plantar aponeurosis is intact. No significant joint effusion is seen. The musculature is intact. There is contrast-enhancement in the lateral soft tissues. Subchondral cysts are noted in the inferior aspect of the lateral malleolus and in the lateral talus. IMPRESSION: Subacute distal tibia fracture. Thickening of the ATFL and CFL as above. Tenosynovitis. Subchondral cysts as described. Contrast-enhancement the lateral soft tissues. Reviewed, Interpreted and Dictated by Onel Gonzalez III, MD Transcribed by Alayna Mota Authenticated and [facility]
[2024-03-05 14:39] LABS: Basophils # 0.1 K/mm3 (0-0.2); Basophils % 1.5 % (0.1-2.0); Eosinophils # 0.7 K/mm3 (0.0-0.4); Eosinophils % 6.9 % (0.1-12.0); Hematocrit 39.4 % (42.0-52.0); Hemoglobin 13.2 g/dL (14.1-18.0); Lymphocytes # 2.7 K/mm3 (0.7-4.5); Lymphocytes % 27.5 % (10-50); Mean Corpuscular HGB Conc 33.6 g/dL (31.8-35.4); Mean Corpuscular Hemoglobin 31.8 pg (27.0-31.2); Mean Corpuscular Volume 94.6 fl (80-94); Mean Platelet Volume 9.1 fl (7.4-10.4); Monocytes # 0.6 K/mm3 (0.1-1.0); Monocytes % 6.7 % (1.7-9.3); Neutrophils # 5.5 K/mm3 (1.8-7.8); Neutrophils % 57.4 % (37.0-80.0); Platelet Count 298 K/mm3 (142-424); Red Blood Count 4.16 M/mm3 (4.60-6.20); Red Cell Distribution Width 14.2 % (11.5-17.5); White Blood Count 9.7 K/mm3 (4.8-10.8)
[2024-03-05 14:41] LABS: Appearance,Urine CLEAR (Clear); Bilirubin,Urine Negative (Negative); Blood, Urine Negative (Negative); Color,Urine YELLOW (Yellow); Glucose,Urine (UA) Negative (Negative); Ketones,Urine Negative (Negative); Leukocyte Esterase,Urine Negative (Negative); Nitrate,Urine Negative (Negative); Protein,Urine Negative (Negative); Urobilinogen,Urine 0.2 EU/dl (0.2)
[2024-03-05 14:57] LABS: RBC,Urine Occasional #/hpf (0-3); Squamous Epithelial Cell,Urine Occasional #/hpf (0-5); WBC,Urine Occasional #/hpf (0-3)
[2024-03-05 15:07] LABS: Chloride 98 mmol/L (98-107); Potassium 3.5 mmoL/L (3.5-5.1); Sodium 134 mmol/L (136-145)
[2024-03-05 15:10] LABS: Anion Gap 8.5 mEq/L (5-15); Blood Urea Nitrogen 10 mg/dl (9-20); Calcium 9.3 mg/dl (8.4-10.2); Carbon Dioxide 31 mmol/L (22.0-30.0); Estimated Glomerular Filt Rate 70 ml/min (>60); GFR (African American) 85 ML/MIN (>60); Glucose 167 mg/dl (74-100)
[2024-03-05] MEDS: GADOTERIDOL INJ 20ML SYRINGE 18 ML IV (16:14)
[2024-03-05] MEDS: SODIUM CHLORIDE 0.9% 10ML SYR (RAD ONLY) 10 ML IV (16:15)
== END 2024-03-05 23:59 | disposition home or self-care (01) ==
LOC: RAD 14:18
PROVIDERS: Surgery; PCP Internal Medicine; Visit Provider Internal Medicine
DX: K40.90 Unilateral inguinal hernia, without obstruction or gangrene, not specified as recurrent (principal); S82.392A Other fracture of lower end of left tibia, initial encounter for closed fracture; M25.572 Pain in left ankle and joints of left foot
CPT/HCPCS: 36415; 73723; 80048; 81001; 85025; A9576

== ENCOUNTER 2024-03-12 08:38 | Day surgery (SDC) | payer MEDICARE, SELFPAY ==
[2024-03-10 15:53] VITALS: BMI 28.0
[2024-03-12] VITALS (10 sets, daily range): BP systolic 124–146; BP diastolic 63–93; PULSE 82–112; RESP 16–20; TEMP 36.3–43; O2SAT 93–100
[2024-03-12] MEDS: LACTATED RINGERS 1000ML 1,000 ML 25 ML IV (09:15)
[2024-03-12] MEDS: CLINDAMYCIN PHOSPHATE/D5W 900 MG/50 ML PIGGYBACK 100 MG IV (11:11)
--- NOTE | 2024-03-12 11:16 | EXP.ANES.CKL ---
[facility] Disclaimer: The information contained in this section may have been updated after the patient was seen, as this information can be updated by other users. Medical History Gout Hypertension Renal insufficiency Hyperlipidemia Chest pain Encounter for screening for malignant neoplasm of lung Eosinophilia Family history of asthma Dyspnea on exertion Asthma-chronic obstructive pulmonary disease overlap syndrome COPD mixed type Gastric bleed requiring more than 4 units over 24 hr, ICU, or surgery Surgical History H/O wrist surgery Family History Other Hyperlipidemia Hypertension Social History Smoking Status: Current every day smoker tobacco type: cigarettes packs per day: 1 second hand exposure: No alcohol intake: never substance use type: denies use current occupational status: employed Travel in the last 8 weeks: None household members: friend(s) housing: apartment [facility] Anesthesia Checklist Patient Identification Patient Identification: Verbal (Name & ) Structural Data Admitted From: Home Planned Operative Procedure/s: r inguinal hernia Consent for Planned Operative Procedure(s) Verified: Yes NPO Status Verified Time NPO: 00:00 Additional verifications Anesthesia Reactions: No Hx Blood Transfusions: No Blood Transfusion Reaction: No Airway Assessment Mallampati Score:: Class II C-Spine Mobility Assessed: Yes TMJ Mobility Assessed: Yes Dentition: Edentulous Neurological Assessment Level of Consciousness: Awake, Alert and Appropriate Anesthesia Plan Anesthesia Risk discussed: Yes Anesthesia Plan: Verified ASA Class: II Anesthesia Type: General
[2024-03-12] MEDS: LIDOCAINE 1% 30ML PF VIAL 30 ML (11:20)
--- NOTE | 2024-03-12 12:08 | EXP.OP.NOTE ---
Date of procedure: 03/12/24 Pre-op Diagnosis:: Right inguinal hernia Post-op Diagnosis:: Same Procedure performed:: Open right inguinal hernia repair Surgeon:: Simone Katz MD MACHINE STOPPAGE FREQUENCY CHECKER:: Etienne Wan Anesthesia: GETA Estimated blood loss (mL): 15 Operative findings:: Moderate indirect and direct defects Operative note:: After informed consent was obtained the patient was taken to the operating room and placed in the supine position. General anesthesia was induced and his lower abdomen and groin/scrotum were prepped and draped in a sterile fashion. After infiltration with local anesthetic an oblique right groin incision was made. Electrocautery was utilized to transect through Suzy's fascia to the level of the external aponeurosis. The external aponeurosis was sharply opened to the level of the external ring. The contents of the canal were carefully elevated. A moderate indirect and direct defect was noted. Preperitoneal fat and a small hernia sac was dissected free from surrounding tissue. No obvious injury to the vas deferens or vasculature was noted. The hernia sac was returned to the abdominal cavity and an extra-large PerFix plug was then secured in position utilizing interrupted Ethibond. The PerFix overlay was secured to the shelving edge inferiorly and fascial margin superiorly with interrupted Ethibond. The external aponeurosis was reapproximated with running Vicryl suture. Suzy's fascia was closed in the same manner. Skin was then reapproximated utilizing the INSORB stapling device. Dressings were applied and the patient was transferred to recovery in stable condition. Condition: stable Disposition: PACU Specimens:: None Complications:: No immediate
--- NOTE | 2024-03-12 12:18 | EXP.ANES.I ---
[facility] Anesthesia Record Part I Anesthesia Record I Intake, IV Amount: 1,400 Hydration: Adequate Estimated blood loss (mL): 10 Urine output (mL): 300 Blood Products used (#): none Blood Pressure: 140/92 SaO2: 93 Pulse Rate: 110 Airway Patency: Patent Respiratory Rate: 16 Temperature: 98.8 F Patient is:: Drowsy and Stable Stable to PACU at:: 12:15
[2024-03-12] MEDS: KETOROLAC 30MG/ML VIAL 30 MG IV (12:20)
[2024-03-12] MEDS: HYDROMORPHONE 2MG/ML SYRINGE 0.5 MG IV ×3 (12:25→12:35)
[2024-03-12 12:40] LABS: Microscopic,Cath URINE MICROSCOPIC (MICROSCOPIC)
[2024-03-12] MEDS: MEPERIDINE 25MG/ML 1ML SYRINGE 25 MG IV (12:42)
[2024-03-12 14:28] LABS: Appearance,Urine/Cath CLEAR (Clear); Bilirubin,Cath Negative (Negative); Blood, Urine/Cath Negative (Negative); Color,Urine/Cath YELLOW (Yellow); Glucose,Urine/Cath (UA) Negative (Negative); Ketones,Urine/Cath Negative (Negative); Leukocyte Esterase,Cath Negative (Negative); Nitrate,Cath Negative (Negative); PH,Urine/Cath 7.5 (5.0-8.5); Protein,Urine/Cath Negative (Negative); Urobilinogen,Cath 0.2 EU/dl (0.2)
[2024-03-12 15:19] LABS: RBC,Urine/Cath Occasional # /hpf (0-3); Squamous Epithelial Ur./Cath Occasional #/hpf (0-5); WBC,Urine/Cath Occasional #/hpf (0-3)
--- NOTE | 2024-03-13 11:51 | EXP.ANES.II ---
[facility] Anesthesia Record Part II Anesthesia Record Part II Discharge Time: 12:45 Destination: Surgical Day Care (OP Surgery) PACU nurse assessment reviewed?: Yes Patient Condition:: Good Anesthesia Complications:: None Swallowing reflex intact?: Yes Airway Patency: Patent Cyanosis?: No Blood Pressure: 138/88 SaO2: 94 Respiratory Rate: 19 Pulse Rate: 102 Temperature: 97.8 F Mental Status: Alert & Oriented Pain level:: 10 Nausea and/or vomitting:: None Intake, IV Amount: 0 Hydration: Adequate
[2024-03-13 11:52] VITALS: BP 138/88; PULSE 102; RESP 19; TEMP 36.6; O2SAT 94
== END 2024-03-12 13:22 | disposition home or self-care (01) ==
PROVIDERS: PCP Internal Medicine; Visit Provider Surgery
PROC: (CPT 49505; principal; 2024-03-12 10:30)
DX: K40.90 Unilateral inguinal hernia, without obstruction or gangrene, not specified as recurrent (principal)
CPT/HCPCS: 49505; 81001; 96374; J3490; J1100; J1170; J1885; J2175; J2250; J2405; J3010; J7120

== ENCOUNTER 2024-04-27 10:51 | Outpatient (CLI) | payer MEDICARE, SELFPAY ==
--- NOTE | 2024-04-27 10:55 | XR_ITS ---
FINAL REPORT CLINICAL HISTORY: ankle pain COMPARISON: 11/14/2023 FINDINGS: LEFT ANKLE 3 views of the left ankle were obtained. There is no acute fracture or dislocation. The mortise is intact. Visualized joint spaces are normally aligned. Soft tissues are unremarkable. There is a well-corticated ossific density inferior to the medial malleolus, which may be due to old trauma. Small plantar spur is noted. IMPRESSION: No acute bony abnormality. Reviewed, Interpreted and Dictated by Mark Billings MD Transcribed by Shruti Ceballos Authenticated and . [facility]
== END 2024-04-27 23:59 | disposition home or self-care (01) ==
LOC: RAD 10:53
PROVIDERS: PCP Internal Medicine; Visit Provider Podiatrist
DX: M65.9 Synovitis and tenosynovitis, unspecified (principal); S82.392K Other fracture of lower end of left tibia, subsequent encounter for closed fracture with nonunion; S82.392S Other fracture of lower end of left tibia, sequela
CPT/HCPCS: 73610

== ENCOUNTER 2024-06-22 10:27 | Outpatient (CLI) | payer MEDICARE, SELFPAY ==
--- NOTE | 2024-06-22 10:31 | XR_ITS ---
FINAL REPORT CLINICAL HISTORY: Left ankle pain COMPARISON: 04/27/2024 FINDINGS: LEFT ANKLE Three views demonstrate no acute fracture or dislocation. There is an old avulsion at the tip of the lateral malleolus. There is multijoint degenerative disease. The visualized joint spaces are normally aligned. The soft tissues are unremarkable. IMPRESSION: No acute bony abnormality. Reviewed, Interpreted and Dictated by Delphine Reagan MD Transcribed by Swati Park Authenticated and [facility]
== END 2024-06-22 23:59 | disposition home or self-care (01) ==
LOC: RAD 10:29
PROVIDERS: PCP Internal Medicine; Visit Provider Podiatrist
DX: S82.392K Other fracture of lower end of left tibia, subsequent encounter for closed fracture with nonunion (principal); M65.972 Unspecified synovitis and tenosynovitis, left ankle and foot
CPT/HCPCS: 73610

== ENCOUNTER 2024-08-17 18:50 | Emergency (ER) | payer MEDICARE, SELFPAY ==
--- NOTE | 2024-08-17 18:58 | XR_ITS ---
PROCEDURE INFORMATION: Exam: XR Right Shoulder Exam date and time: 08/17/2024 6:56 PM Age: 54 years old Clinical indication: Injury or trauma; Fall; Blunt trauma (contusions or hematomas); Shoulder; Right; Additional info: Injury, fall x 1 week ago TECHNIQUE: Imaging protocol: Radiologic exam of the right shoulder. Views: 2 or more views. COMPARISON: CR XR SHOULDER RT MIN 2V 08/15/2023 12:36 PM FINDINGS: Bones/joints: No acute fracture or malalignment. Moderate chronic glenohumeral osteoarthritic changes. Old healed scapular fracture unchanged. Chronic ossifications along the coracoclavicular interval suggesting remote ligamentous injury. Mild osteoarthritic hypertrophy in the AC joint. Chronic healed right lateral 2nd through 4th rib fractures again noted. Soft tissues: No gross soft tissue abnormalities. IMPRESSION: No acute findings.
--- NOTE | 2024-08-17 19:01 | ED_ITS ---
Discharge Plan Disposition Patient Disposition: Home, Self-Care Condition: Good Prescriptions Prescriptions: New ibuprofen 600 mg tablet 600 mg PO Q6HP PRN (Reason: Mild Pain) Qty: 30 0RF No Action chlorthalidone 25 mg tablet 25 mg PO DAILY Qty: 30 2RF lidocaine [DermacinRx Lidocan] 5 % adhesive patch,medicated 1 patch topical DAILY PRN (Reason: pain) 30 Days Qty: 30 3RF Rx Instructions: leave on most painful area for up to 12 hrs lidocaine-prilocaine 2.5-2.5 % cream 2 g topical BID PRN (Reason: pain) 30 Days Qty: 50 3RF tadalafil 5 mg tablet 5 mg PO DAILY PRN (Reason: PRN sexual activity) 30 Days Qty: 30 1RF nicotine 21-14-7 mg/24 hr patch, TD daily, sequential See Rx Instructions transdermal .COMPLEX Qty: 56 0RF Rx Instructions: apply 1-21 mg NICOTINE PATCH daily for 28 days; follow with 1-14 mg PATCH daily for 14 days, then 1-7mg PATCH daily for 14 days transdermal albuterol sulfate 90 mcg/actuation HFA aerosol inhaler See Rx Instructions .ROUTE .COMPLEX Qty: 18 2RF Dose Instruction: INHALE 2 PUFFS BY MOUTH EVERY 6 HOURS NEEDED FOR SHORTNESS OF BREATH OR WHEEZING Rx Instructions: INHALE 2 PUFFS BY MOUTH EVERY 6 HOURS NEEDED FOR SHORTNESS OF BREATH OR WHEEZING atorvastatin [Lipitor] 10 mg tablet 10 mg PO HS Qty: 90 3RF irbesartan 150 mg tablet See Rx Instructions .ROUTE .COMPLEX Qty: 30 0RF Dose Instruction: TAKE ONE TABLET BY MOUTH ONCE A DAY FOR HYPERTENSTION Rx Instructions: TAKE ONE TABLET BY MOUTH ONCE A DAY FOR HYPERTENSTION tramadol 50 mg tablet 50 mg PO Q6H PRN (Reason: pain) Qty: 90 0RF amlodipine [Norvasc] 5 mg tablet 5 mg PO DAILY allopurinol [Zyloprim] 100 mg tablet 100 mg PO DAILY fluticasone furoate-vilanterol [Breo Ellipta] 100-25 mcg/dose blister with device 1 ea INHALATION DAILY Referrals Follow up/Referrals: Emerson Ross DO [Staff Physician] - See instructions Amparo Becerril DO [Primary Care Provider] - See instructions Activity Restrictions/Add. Instructions Additional Instructions/Restrictions: Rest the extremity. Take ibuprofen for pain. I sent in a prescription to your pharmacy. Follow up with Dr. Ross (orthopedics). I put in a referral but you need to call his office and schedule an appointment. Follow up with your regular doctor. GO TO THE ER FOR ANY WORSENING SYMPTOMS Only wear the arm sling for the next couple of days. Clinical Impressions Clinical Impression: Pain in right shoulder, Fall, Shoulder separation Instructions Patient Instructions: DI for Shoulder Pain, DI for AC Joint Separation Print Language Print Language: German Discharge ED Provider: Bud Landry [facility] General Stated complaint: AO fall 08/10 right shoulder pain Time Seen by Provider: 08/17/24 19:00 History of Present Illness Provider Complaint: He states that 1 week ago he fell on ice and came down on his right shoulder and upper arm. Since then he has had right shoulder pain that is worse when he tries to raise his arm over his head. He denies any neck or back pain. He denies any other complaints or injuries. Related Data Home Medications ?Medication ?Instructions ?Recorded ?Confirmed allopurinol 100 mg tablet 100 mg PO DAILY 02/07/24 08/17/24 (Zyloprim) amlodipine 5 mg tablet (Norvasc) 5 mg PO DAILY 02/07/24 06/22/24 fluticasone furoate 100 1 ea inhalation DAILY 02/07/24 06/22/24 mcg-vilanterol 25 mcg/dose inhalation powder (Breo Ellipta) Previous Rx's ?Medication ?Instructions ?Recorded chlorthalidone 25 mg tablet 25 mg PO DAILY #30 tabs 02/20/24 albuterol sulfate 90 mcg/actuation See Rx Instructions .Route 04/13/24 aerosol inhaler .COMPLEX #18 grams lidocaine 5 % topical patch 1 patch topical DAILY PRN pain 30 04/27/24 (DermacinRx Lidocan) days #30 ea lidocaine-prilocaine 2.5 %-2.5 % 2 g topical BID PRN pain 30 days 04/27/24 topical cream #50 grams atorvastatin 10 mg tablet (Lipitor) 10 mg PO HS #90 tabs 06/01/24 nicotine See Rx Instructions transdermal 06/22/24 21mg/24hr-14mg/24hr-7mg/24hr daily .COMPLEX #56 patches transderm patches,sequentl tadalafil 5 mg tablet 5 mg PO DAILY PRN PRN sexual 06/22/24 activity 30 days #30 tabs irbesartan 150 mg tablet See Rx Instructions .Route 08/04/24 .COMPLEX #30 tabs tramadol 50 mg tablet 50 mg PO Q6H PRN pain #90 tabs 08/05/24 ibuprofen 600 mg tablet 600 mg PO Q6HP PRN Mild Pain #30 08/17/24 tabs Allergies Allergy/AdvReac Type Severity Reaction Status Date / Time amoxicillin (AMOXICILLIN) Allergy Unknown Verified 06/22/24 15:02 Penicillins (PENICILLINS) Allergy Unknown Verified 06/22/24 15:02 [facility] Disclaimer: The information contained in this section may have been updated after the patient was seen, as this information can be updated by other users. Medical History (Updated 08/17/24 @ 20:10 by Bud Landry APRN) Instability of right shoulder joint Gout Hypertension Renal insufficiency Hyperlipidemia Chest pain Encounter for screening for malignant neoplasm of lung Eosinophilia Family history of asthma Dyspnea on exertion Asthma-chronic obstructive pulmonary disease overlap syndrome COPD mixed type Gastric bleed requiring more than 4 units over 24 hr, ICU, or surgery Surgical History History of hernia surgery H/O wrist surgery Family History Other Hyperlipidemia Hypertension Social History (Updated 06/22/24 @ 21:07 by Ann Poe DPM) Smoking Status: Current every day smoker tobacco type: cigarettes packs per day: 1 second hand exposure: No alcohol intake: never substance use type: denies use current occupational status: employed Travel in the last 8 weeks: None household members: friend(s) housing: apartment Have you lived/traveled outside US in past 30 days?: No Contact w/someone who lives/traveled outside US past 30 days?: No Exposure to someone with infectious disease in past 14 days?: No Do you have a fever (greater than 100.4 F or 38 C)?: No Have you tested positive for COVID-19: No Exposed to someone with COVID-19 in past 14 days?: No Do you have a sore throat?: No Do you have a cough?: No Do you have any weakness?: No Do you have any diarrhea?: No Are you experiencing any unusual bleeding?: No Do you have any muscle aches/pain?: No Do you have any abdominal pain?: No Are you experiencing loss of taste or smell?: No ROS Obtained: Yes All systems reviewed & no additional complaints except as documented Constitutional Constitutional: Denies chills and Denies fever(s) Eyes Eyes: Denies eye discharge ENT Ears, Nose, Mouth, and Throat: Denies dizziness, Denies otalgia, Denies neck pain and Denies sore throat Cardiovascular Cardiovascular: Denies chest pain Respiratory Respiratory: Denies shortness of breath, Denies chest congestion, Denies cough, Denies stridor and Denies wheezing Gastrointestinal Gastrointestingal: Denies nausea or vomiting Genitourinary Male Genitourinary: Denies difficulty urinating Musculoskeletal Musculoskeletal: Reports as per HPI, Denies back pain and Denies neck pain Integumentary/Breasts Skin/Breast: Denies redness, Denies rash and Denies wounds Neurologic Neurologic: Denies dizziness and Denies paresthesias Allergic/Immunologic Allergic/Immunologic: Denies wheezing Physical Exam General General appearance: alert and in no apparent distress Head Head exam: atraumatic, normocephalic and normal inspection Eye Eye exam: Present normal appearance, PERRL and EOMI ENT ENT exam: Present normal exam, normal oropharynx, mucous membranes moist, TM's normal bilaterally and normal external ear exam Neck Neck exam: Present normal inspection, full ROM and trachea midline; Absent meningismus or lymphadenopathy Chest Chest inspection: Present normal inspection and symmetric chest wall rise; Absent tenderness Respiratory Respiratory exam: Present normal lung sounds bilaterally; Absent respiratory distress Cardiovascular Cardiovascular exam: Present regular rate and normal rhythm; Absent JVD Abdominal Exam Abdominal exam: Present soft and normal bowel sounds; Absent distention, tenderness or guarding Extremities Exam Extremities exam: Present normal capillary refill; Absent calf tenderness Expanded Upper Extremity Exam Right: Shoulder exam: Present full ROM; Absent tenderness, swelling, abrasion, laceration, ecchymosis, deformity, crepitus, dislocation, erythema or tenderness over AC joint Arm exam: Present normal inspection and full ROM; Absent tenderness, swelling, abrasion, laceration, ecchymosis, deformity, crepitus or erythema Elbow exam: Present normal inspection and full ROM; Absent tenderness, swelling, pain w/ pronation/supination or tenderness over radial head Forearm/Wrist exam: Present normal inspection and full ROM; Absent tenderness, tenderness over anatomical snuff box or pain with axial thumb loading Hand exam: Present normal inspection and full ROM; Absent tenderness Neuromotor exam: Normal wrist extension, thumb opposition, thumb IP flexion, thumb adduction and fingers 2-5 abduction Neurosensory exam: Normal radial nerve, ulnar nerve and median nerve Vascular exam: Normal capillary refill, radial pulse and ulnar pulse Back Exam Back exam: Present normal inspection; Absent tenderness Neurological Exam Neurological exam: Present alert and oriented X3 Psychiatric Psychiatric exam: Present normal affect and normal mood Skin Skin exam: Present warm, dry, intact and normal color Lymphatic Lymphatic Findings: no adenopathy Medical Decision Making Medical Records Medical records reviewed: No I reviewed the patient's medical records. Screening: Per USPSTF and CDC recommendations, given the prevalence of disease in our region, it is our hospital?s policy to screen for HIV and viral Hepatitis for all patients aged 18 and over and those with ongoing risk factors. [place] Inquiry Pt receiving controlled substance: No Orders (Tests/Meds): ORDERS Category Date Time Status Shoulder XR right miminum 2 views [XR shoulder RT min Exams 08/17/24 18:58 Ordered 2V] Stat Radiology Data #1: Image(s): Shoulder Image Reviewed: Yes I reviewed the patient's radiology image and Yes I have reviewed radiologist's interpretation Preliminary Findings: No Fracture Seen Accession No. : [id number] Patient Name / ID : MELVI WATTS / [id number] Exam Date : 08/17/2024 18:56:24 ( Final ) Study Comment : Sex / Age : M / 54Y Creator : AMPARO MCKENZIE MD Dictator : Corsetier : Channeler Insole : AMPARO MCKENZIE MD Approver2 : Report Date : 08/17/2024 19:53:07 My Comment : PROCEDURE INFORMATION: Exam: XR Right Shoulder Exam date and time: 08/17/2024 6:56 PM Age: 54 years old Clinical indication: Injury or trauma; Fall; Blunt trauma (contusions or hematomas); Shoulder; Right; Additional info: Injury, fall x 1 week ago TECHNIQUE: Imaging protocol: Radiologic exam of the right shoulder. Views: 2 or more views. COMPARISON: CR XR SHOULDER RT MIN 2V 08/15/2023 12:36 PM FINDINGS: Bones/joints: No acute fracture or malalignment. Moderate chronic glenohumeral osteoarthritic changes. Old healed scapular fracture unchanged. Chronic ossifications along the coracoclavicular interval suggesting remote ligamentous injury. Mild osteoarthritic hypertrophy in the AC joint. Chronic healed right lateral 2nd through 4th rib fractures again noted. Soft tissues: No gross soft tissue abnormalities. IMPRESSION: No acute findings.
[2024-08-17 19:02] VITALS: BP 144/85; PULSE 100; RESP 18; TEMP 37.4; O2SAT 99; BMI 28.8
[2024-08-17] MEDS: KETOROLAC 60MG/2ML VIAL 60 MG IM (20:03)
[2024-08-17 20:10] VITALS: BP 144/85; PULSE 100; RESP 18; TEMP 37.4
== END 2024-08-17 20:22 | disposition home or self-care (01) ==
PROVIDERS: Emergency Provider Nurse Practitioner Family; PCP Internal Medicine
DX: S43.111A Subluxation of right acromioclavicular joint, initial encounter (principal); X50.0XXA Overexertion from strenuous movement or load, initial encounter
CPT/HCPCS: 73030; 96372; 99213; G0381; J1885

== ENCOUNTER 2024-08-25 19:11 | Outpatient (CLI) | payer MEDICARE, SELFPAY ==
[2024-08-25 19:33] LABS: Basophils # 0.1 K/mm3 (0-0.2); Basophils % 0.9 % (0.1-2.0); Eosinophils % 0.3 % (0.1-12.0); Hematocrit 40.5 % (42.0-52.0); Hemoglobin 13.3 g/dL (14.1-18.0); Lymphocytes # 2.3 K/mm3 (0.7-4.5); Lymphocytes % 25.5 % (10-50); Mean Corpuscular HGB Conc 32.8 g/dL (31.8-35.4); Mean Corpuscular Hemoglobin 31.5 pg (27.0-31.2); Monocytes # 0.6 K/mm3 (0.1-1.0); Monocytes % 6.3 % (1.7-9.3); Neutrophils # 5.9 K/mm3 (1.8-7.8); Neutrophils % 66.8 % (37.0-80.0); Platelet Count 268 K/mm3 (142-424); Red Blood Count 4.22 M/mm3 (4.60-6.20); Red Cell Distribution Width 12.9 % (11.5-17.5); White Blood Count 8.9 K/mm3 (4.8-10.8)
[2024-08-25 19:43] LABS: Chloride 102 mmol/L (98-107)
[2024-08-25 19:44] LABS: Albumin Level 4.3 g/dl (3.5-5.0); Potassium 4.3 mmoL/L (3.5-5.1); Sodium 140 mmol/L (136-145)
[2024-08-25 19:47] LABS: Alanine Aminotransferase 47 U/L (12-78); Albumin/Globulin Ratio 1.7 (1.1-1.8); Alkaline Phosphatase 79 U/L (38-126); Anion Gap 13.3 mEq/L (5-15); Aspartate Amino Transferase 37 U/L (17-59); Bilirubin,Total 0.3 mg/dl (0.2-1.3); Blood Urea Nitrogen 9 mg/dl (9-20); Calcium 9.7 mg/dl (8.4-10.2); Carbon Dioxide 29 mmol/L (22.0-30.0); Chol/HDL Ratio 6.3 (1-3.5); Cholesterol 194 mg/dl (140-200); Estimated Glomerular Filt Rate 78 ml/min (>60); GFR (African American) 94 ML/MIN (>60); Globulin 2.5 g/dL (1.3-3.2); Glucose 131 mg/dl (74-100); HDL Cholesterol 31 mg/dl (40-60); Total Protein,Serum 6.8 g/dl (6.3-8.2)
[2024-08-25 19:59] LABS: Direct LDL Cholesterol 84.71 mg/dL (100-129)
[2024-08-25 20:04] LABS: Hemoglobin A1C 6.1 % (4.0-6.0)
[2024-08-25 20:17] LABS: Triglycerides 714 mg/dl (30-150)
== END 2024-08-25 23:59 | disposition home or self-care (01) ==
LOC: LAB.DROPOF 19:13
PROVIDERS: PCP Internal Medicine; Visit Provider Internal Medicine
DX: E78.5 Hyperlipidemia, unspecified (principal); F17.210 Nicotine dependence, cigarettes, uncomplicated; I10 Essential (primary) hypertension; Z13.1 Encounter for screening for diabetes mellitus; R73.03 Prediabetes
CPT/HCPCS: 80053; 80061; 83036; 85025

== ENCOUNTER 2024-10-16 16:57 | Emergency (ER) | payer MEDICARE, SELFPAY ==
[2024-10-16 16:59] VITALS: BP 162/111; PULSE 91; RESP 18; TEMP 36.8; O2SAT 96; BMI 28.8
--- NOTE | 2024-10-16 17:05 | ED_ITS ---
<Statement entered by Jocy Toledo DO - 10/16/24 23:08> I was consulted by the ALEX, and we discussed the complexity of the problems being addressed. I approved the treatment and management plan for this patient's care in the emergency department, thus performing a substantive portion of the medical decision making. Jocy Toledo DO Discharge Plan Disposition Patient Disposition: Home, Self-Care Condition: Good Prescriptions Prescriptions: New iqujgmdh-ztnvfgulk-PC 3.5-10,000-1 mg/mL-unit/mL-% solution 4 drp otic (ear) Q8H 5 Days Qty: 10 0RF No Action meloxicam 15 mg tablet 15 mg PO DAILY Qty: 30 2RF allopurinol [Zyloprim] 100 mg tablet 100 mg PO DAILY Qty: 90 3RF albuterol sulfate 90 mcg/actuation HFA aerosol inhaler 2 puff inhalation Q4-6H PRN (Reason: shortness of breath or wheezing) Qty: 18 8RF amlodipine [Norvasc] 5 mg tablet 5 mg PO DAILY Qty: 90 3RF chlorthalidone 25 mg tablet 25 mg PO DAILY Qty: 90 3RF fluticasone furoate-vilanterol [Breo Ellipta] 100-25 mcg/dose blister with dev ice 1 ea INHALATION DAILY Qty: 60 4RF irbesartan 150 mg tablet 150 mg PO DAILY 90 Days Qty: 90 3RF lidocaine [DermacinRx Lidocan] 5 % adhesive patch,medicated 1 patch topical DAILY PRN (Reason: pain) 30 Days Qty: 30 3RF Rx Instructions: leave on most painful area for up to 12 hrs lidocaine-prilocaine 2.5-2.5 % cream 2 g topical BID PRN (Reason: pain) 30 Days Qty: 50 3RF tadalafil 5 mg tablet 5 mg PO DAILY PRN (Reason: PRN sexual activity) 30 Days Qty: 30 1RF nicotine 21-14-7 mg/24 hr patch, TD daily, sequential See Rx Instructions transdermal .COMPLEX Qty: 56 0RF Rx Instructions: apply 1-21 mg NICOTINE PATCH daily for 28 days; follow with 1-14 mg PATCH daily for 14 days, then 1-7mg PATCH daily for 14 days transdermal atorvastatin 40 mg tablet 40 mg PO DAILY Qty: 30 2RF Referrals Follow up/Referrals: Luis Becerrli DO [Primary Care Provider] - See instructions Activity Restrictions/Add. Instructions Additional Instructions/Restrictions: Please use the drops that I have given you as directed. If you have worsening signs or symptoms follow-up with your PCP return to the ER as needed Clinical Impressions Clinical Impression: Otitis externa Qualifiers: Otitis externa type: noninfectious Noninfectious otitis externa type: contact Chronicity: acute Laterality: left Qualified Code(s): H60.532 - Acute contact otitis externa, left ear Print Language Print Language: Thai Discharge ED Provider: Jocy Toledo General Adult HPI General Chief complaint: Ear Stated complaint: left ear stuffy, bleeding Time Seen by Provider: 10/16/24 17:05 Mode of Arrival: Ambulatory Source of Information: Patient Description of Symptoms (Recalled from ER Triage Doc. by RN): Pt presents with c/o having feeling like his left ear was clogged up for several days. Last night he woke up to bloody drainage coming from his left ear. History of Present Illness HPI narrative: Patient presents for evaluation of left ear pain. Patient states that when he woke up this morning he saw blood in his left ear and his ear has been hurting all day. He denies loss of hearing fever chills hemoptysis hematochezia melena nausea vomiting diarrhea. Patient states he does use Q-tips after shower every day to clean his ears. He did not recall having any pain when doing so this morning. Related Data Previous Rx's ?Medication ?Instructions ?Recorded lidocaine 5 % topical patch 1 patch topical DAILY PRN pain 30 04/27/24 (DermacinRx Lidocan) days #30 ea lidocaine-prilocaine 2.5 %-2.5 % 2 g topical BID PRN pain 30 days 04/27/24 topical cream #50 grams nicotine See Rx Instructions transdermal 06/22/24 21mg/24hr-14mg/24hr-7mg/24hr daily .COMPLEX #56 patches transderm patches,sequentl tadalafil 5 mg tablet 5 mg PO DAILY PRN PRN sexual 06/22/24 activity 30 days #30 tabs albuterol sulfate 90 mcg/actuation 2 puff inhalation Q4-6H PRN 08/25/24 aerosol inhaler shortness of breath or wheezing #18 grams allopurinol 100 mg tablet 100 mg PO DAILY #90 tabs 08/25/24 (Zyloprim) amlodipine 5 mg tablet (Norvasc) 5 mg PO DAILY #90 tabs 08/25/24 chlorthalidone 25 mg tablet 25 mg PO DAILY #90 tabs 08/25/24 fluticasone furoate 100 1 ea inhalation DAILY #60 ea 08/25/24 mcg-vilanterol 25 mcg/dose inhalation powder (Breo Ellipta) irbesartan 150 mg tablet 150 mg PO DAILY 90 days #90 tabs 08/25/24 meloxicam 15 mg tablet 15 mg PO DAILY #30 tabs 08/25/24 atorvastatin 40 mg tablet 40 mg PO DAILY #30 tabs 08/26/24 ijjprpyt-uuwcchlhs-wvdvjsmpx 3.5 4 drp otic (ear) Q8H 5 days #10 mL 10/16/24 mg/mL-10,000 unit/mL-1 % ear solution Allergies Allergy/AdvReac Type Severity Reaction Status Date / Time amoxicillin (AMOXICILLIN) Allergy Unknown Hives Verified 10/16/24 17:15 Penicillins (PENICILLINS) Allergy Unknown Hives Verified 10/16/24 17:15 [facility] Disclaimer: The information contained in this section may have been updated after the patient was seen, as this information can be updated by other users. Medical History Instability of right shoulder joint Gout Hypertension Renal insufficiency Hyperlipidemia Chest pain Encounter for screening for malignant neoplasm of lung Eosinophilia Family history of asthma Dyspnea on exertion Asthma-chronic obstructive pulmonary disease overlap syndrome COPD mixed type Gastric bleed requiring more than 4 units over 24 hr, ICU, or surgery Surgical History History of hernia surgery H/O wrist surgery Family History Other Hyperlipidemia Hypertension Social History Smoking Status: Current every day smoker tobacco type: cigarettes packs per day: 1 second hand exposure: No alcohol intake: never substance use type: denies use current occupational status: employed Travel in the last 8 weeks: None household members: friend(s) housing: apartment Have you lived/traveled outside US in past 30 days?: No Contact w/someone who lives/traveled outside US past 30 days?: No Exposure to someone with infectious disease in past 14 days?: No Do you have a fever (greater than 100.4 F or 38 C)?: No Have you tested positive for COVID-19: No Exposed to someone with COVID-19 in past 14 days?: No Do you have a sore throat?: No Do you have a cough?: No Do you have any weakness?: No Do you have any diarrhea?: No Are you experiencing any unusual bleeding?: No Do you have any muscle aches/pain?: No Do you have any abdominal pain?: No Are you experiencing loss of taste or smell?: No Other Medical History Have you received the Flu Vaccine for this season: No Have you received the Pneumonia Vaccine: No ROS Obtained: Yes Systems reviewed as appropriate & no additional complaints except as documented Physical Exam General General appearance: alert and in no apparent distress Respiratory Respiratory exam: Present normal lung sounds bilaterally Cardiovascular Cardiovascular exam: Present regular rate Neurological Exam Neurological exam: Present alert and oriented X3 Medical Decision Making Medical Records Screening: Per USPSTF and CDC recommendations, given the prevalence of disease in our region, it is our hospital?s policy to screen for HIV and viral Hepatitis for all patients aged 18 and over and those with ongoing risk factors. [place] Inquiry Pt receiving controlled substance: No Vital Signs: 10/16/24 16:59 10/16/24 17:15 Temperature 98.2 F 97.9 F Temperature Source Temporal Artery Scan Pulse Rate 88 Pulse Rate [Right] 91 H Respiratory Rate 18 16 Blood Pressure 128/95 H Blood Pressure [Right Arm] 162/111 H Blood Pressure Mean [Right Arm] 128 Blood Pressure Source [Right Arm] Automatic Cuff Blood Pressure Position [Right Arm] Sitting 02 Sat by Pulse Oximetry 96 Oxygen Delivery Method Room Air Medical Decision Narrative: In summary patient is a 54-year-old male who presents to the emergency department for evaluation of left ear pain. Patient is hemodynamically stable upon arrival, afebrile. Physical exam reveals a normal external auditory canal and tympanic membrane on the right on the left patient has an area in the left external auditory canal that shows fresh blood but no active bleeding. Temp panic membrane is normal with no effusion. Patient has no cervical lymphadenopathy. Patient has normal hearing. Differential diagnosis includes auditory canal abrasion versus infection. Initial workup was considered including labs and imaging however patient has no stigmata of acute infection deep space involvement or active bleeding thus deferred. Initial interventions were considered however patient is already taken Tylenol and Motrin within 4 hours of arrival thus deferred. Given that patient has clear evidence of e xternal auditory canal abrasion and no evidence of deep space infection or systemic infection loss of hearing or perforation of eardrum patient is appropriate for discharge with topical eardrops and symptomatic treatment with close follow-up with PCP for any worsening signs or symptoms as needed. Prescription sent to his pharmacy. Critical Care Critical Care Time Critical Care Time: No
--- NOTE | 2024-10-16 17:05 | PC.NURSE ---
PT BROUGHT FROM TRIAGE TO RM 11. PT REPORTS HAVING L EAR PAIN/PRESSURE LAST NIGHT. PT WOKE UP WITH BRIGHT RED BLOOD ON HIS PILLOW. PT STATES HE USED 12 QTIPS AND WAS ABLE TO GET THE BLEEDING STOPPED. PT DENIES ANY BLEEDING OR DRAINAGE THROUGHOUT THE DAY. PT HAS NOT TAKEN ANY MEDICATION. PAIN IS 4/10.
[2024-10-16 17:15] VITALS: BP 128/95; PULSE 88; RESP 16; TEMP 36.6; O2SAT 96
== END 2024-10-16 17:20 | disposition home or self-care (01) ==
PROVIDERS: Emergency Provider Emergency Medicine; PCP Internal Medicine
DX: H60.532 Acute contact otitis externa, left ear (principal); H92.02 Otalgia, left ear; F17.210 Nicotine dependence, cigarettes, uncomplicated
CPT/HCPCS: 99283

== ENCOUNTER 2024-11-03 07:34 | Outpatient (CLI) | payer MEDICARE, SELFPAY ==
--- NOTE | 2024-11-03 07:38 | CT_ITS ---
FINAL REPORT CLINICAL HISTORY: Groin pain/inguinal adenopathy.GO THRU THE THIGH FINDINGS: Axial images through the pelvis were performed by computed tomography after the administration of IV contrast. Sagittal and coronal reconstruction images were performed. This study was performed with techniques to keep radiation doses as low as reasonably achievable (ALARA). Individualized dose reduction techniques using automated exposure control or adjustment of mA and/or kV according to the patient's size were employed. The appendix is normal. There is minimal diverticular disease of the sigmoid colon. No pelvic mass or adenopathy is identified. There is mild prostate enlargement, stable. There is a low-density mass in the right inguinal region measuring 25 x 17 mm. This is probably an enlarged lymph node although spermatic cord lesion is not excluded. Loculated fluid within the right inguinal canal is also a consideration. There is no evidence of inguinal hernia. IMPRESSION: 25 mm hypodense lesion along the right inguinal canal, may represent adenopathy, spermatic cord mass, or less likely loculated fluid. Imaging follow-up recommended in 2 to 3 months. Reviewed, Interpreted and Dictated by Jesika Mcdowell MD Transcribed by Matilda Pak Authenticated and [facility]
--- NOTE | 2024-11-03 07:39 | CT_ITS ---
FINAL REPORT TECHNIQUE: Thin section axial CT images with coronal and sagittal reformats were performed of the left ankle. This study was performed with techniques to keep radiation doses as low as reasonably achievable (ALARA). Individualized dose reduction techniques using automated exposure control or adjustment of mA and/or kV according to the patient''s size were employed. CLINICAL HISTORY: LT ANKLE PAIN COMPARISON: None FINDINGS: There are no acute fractures. There are moderate degenerative changes of the ankle joint. Multiple calcifications are seen along the anterior tibiofibular joint, likely reflecting old ligamentous injury. There are no loose bodies seen within the ankle or subtalar joints. Mild calcaneal spurring is noted. The hindfoot is unremarkable. IMPRESSION: Degenerative changes of the ankle joint with presumed remote ligamentous injury of the tibiofibular ligaments and possible syndesmosis. Reviewed, Interpreted and Dictated by Jesika Mcdowell MD Transcribed by Alayna Mota Authenticated and [facility]
[2024-11-03 08:08] LABS: Blood Urea Nitrogen 8 mg/dl (9-20); Estimated Glomerular Filt Rate 78 ml/min (>60); GFR (African American) 94 ML/MIN (>60)
[2024-11-03] MEDS: IOPAMIDOL-370 (76%);100ML BOTTLE 75 ML IV (08:38)
[2024-11-03] MEDS: SODIUM CHLORIDE 0.9% 10ML SYR (RAD ONLY) 10 ML IV (08:38)
== END 2024-11-03 23:59 | disposition home or self-care (01) ==
LOC: RAD 07:35
PROVIDERS: Surgery; Visit Provider Podiatrist Foot & Ankle Surgery
DX: R59.0 Localized enlarged lymph nodes (principal); M25.572 Pain in left ankle and joints of left foot
CPT/HCPCS: 72193; 73700; 82565; 84520; Q9967

== ENCOUNTER 2024-11-23 11:10 | Outpatient (CLI) | payer MEDICARE, SELFPAY ==
[2024-11-23 12:08] LABS: Blood Urea Nitrogen 9 mg/dl (9-20); Estimated Glomerular Filt Rate 78 ml/min (>60); GFR (African American) 94 ML/MIN (>60)
[2024-11-24 08:13] LABS: Testosterone,Total 450 ng/dL (264-916)
[2024-11-24 13:12] LABS: Sex Hormone Binding Globulin 37.8 nmol/L (19.3-76.4)
[2024-11-24 14:12] LABS: PSA, Free 0.29 ng/mL; Prostate Specific Ag 0.7 ng/mL (0.0-4.0)
== END 2024-11-23 23:59 | disposition home or self-care (01) ==
LOC: LAB 11:11
PROVIDERS: Visit Provider Urology
DX: N52.9 Male erectile dysfunction, unspecified (principal); N40.0 Benign prostatic hyperplasia without lower urinary tract symptoms
CPT/HCPCS: 36415; 82565; 84153; 84154; 84270; 84403; 84520

== ENCOUNTER 2025-05-18 14:53 | Emergency (ER) | payer MEDICARE, SELFPAY ==
[2025-05-18 14:56] VITALS: BP 140/79; PULSE 93; RESP 23; TEMP 37.1; O2SAT 94; BMI 26.6
[2025-05-18 15:01] VITALS: BP 140/79; PULSE 93; RESP 23; TEMP 37.1; O2SAT 94
--- NOTE | 2025-05-18 15:11 | CT_ITS ---
FINAL REPORT TECHNIQUE: Axial CT without IV contrast administration. This study was performed with techniques to keep radiation doses as low as reasonably achievable, (ALARA). Individualized dose reduction techniques using automated exposure control or adjustment of mA and/or kV according to the patient's size were employed. This study was performed with techniques to keep radiation doses as low as reasonably achievable, (ALARA). Individualized dose reduction techniques using automated exposure control or adjustment of mA and/or kV according to the patient''s size were employed. CLINICAL HISTORY: pain FINDINGS: No acute lung disease is present. The thoracic aorta is normal in caliber. No pleural or pericardial effusion is seen. No adenopathy or mass lesion is present. No rib or sternal fracture identified. IMPRESSION: No acute process. Reviewed, Interpreted and Dictated by Jesika Mcdowell MD Transcribed by Matilda Pak Authenticated and [facility]
--- NOTE | 2025-05-18 15:27 | ECG_ITS ---
APPROVED REPORT Exam: Resting ECG HR:87 bpm ECG Measurements Heart Rate 87 AXES IN 135 P 66 QRSd 79 QRS 92 QT 324 T -23 QTc 368 Conclusion SINUS RHYTHM BORDERLINE RIGHT AXIS DEVIATION [QRS AXIS > 90] NONSPECIFIC T-WAVE ABNORMALITY ABNORMAL ECG UNCONFIRMED REPORT Electronically signed by : VARINDER SONG, 05/20/2025 06:47:36
[2025-05-18] MEDS: ONDANSETRON 4MG/2ML VIAL 4 MG IV (15:31)
[2025-05-18] MEDS: MORPHINE 4MG/ML SYRINGE 4 MG IV (15:32)
--- NOTE | 2025-05-18 15:47 | HMH.EDGENADL ---
Discharge Plan Disposition Patient Disposition: Home, Self-Care Prescriptions Prescriptions: New lidocaine [Lidocaine Pain Relief] 4 % adhesive patch,medicated 1 patch topical Q12H Qty: 30 0RF ibuprofen 800 mg tablet 800 mg PO QID 30 Days Qty: 120 0RF methocarbamol 1,000 mg tablet 1,000 mg PO Q4-6H 6 Days Qty: 36 0RF No Action meloxicam 15 mg tablet 15 mg PO DAILY Qty: 30 2RF albuterol sulfate 90 mcg/actuation HFA aerosol inhaler 2 puff inhalation Q4-6H PRN (Reason: shortness of breath or wheezing) Qty: 18 8RF amlodipine [Norvasc] 5 mg tablet 5 mg PO DAILY Qty: 90 3RF chlorthalidone 25 mg tablet 25 mg PO DAILY Qty: 90 3RF fluticasone furoate-vilanterol [Breo Ellipta] 100-25 mcg/dose blister with device 1 ea INHALATION DAILY Qty: 60 4RF irbesartan 150 mg tablet 150 mg PO DAILY 90 Days Qty: 90 3RF tamsulosin [Flomax] 0.4 mg capsule 0.4 mg PO DAILY Qty: 30 3RF tadalafil [Cialis] 5 mg tablet 5 mg PO DAILY Qty: 30 2RF tadalafil [Cialis] 20 mg tablet 20 mg PO ONCE Qty: 10 0RF Rx Instructions: Take 1 hour before sexual intercourse. Do not use more than 1 dose per 24hrs lidocaine [DermacinRx Lidocan] 5 % adhesive patch,medicated 1 patch topical DAILY PRN (Reason: pain) 30 Days Qty: 30 3RF Rx Instructions: leave on most painful area for up to 12 hrs lidocaine-prilocaine 2.5-2.5 % cream 2 g topical BID PRN (Reason: pain) 30 Days Qty: 50 3RF nicotine 21-14-7 mg/24 hr patch, TD daily, sequential See Rx Instructions transdermal .COMPLEX Qty: 56 0RF Rx Instructions: apply 1-21 mg NICOTINE PATCH daily for 28 days; follow with 1-14 mg PATCH daily for 14 days, then 1-7mg PATCH daily for 14 days transdermal allopurinol [Zyloprim] 100 mg tablet 100 mg PO DAILY Qty: 90 3RF atorvastatin 40 mg tablet 40 mg PO DAILY Qty: 90 3RF gzzhozdf-khcjabrqo-MI 3.5-10,000-1 mg/mL-unit/mL-% solution 4 drp otic (ear) Q8H 5 Days Qty: 10 0RF Referrals Follow up/Referrals: Provider,Referral, [Primary Care Provider, Medical] - See instructions Activity Restrictions/Add. Instructions Additional Instructions/Restrictions: Increase fluids and rest. Take meds as directed. Also take Tylenol/acetaminophen every 4 hours with all the other meds. Use the incentive spirometer every hour while awake. This will help with keeping your lungs open and clear. If you have any shortness of breath or fevers please return to the ER or follow with your PCP. Clinical Impressions Clinical Impression: Fracture of rib Instructions Patient Instructions: DI for Rib Fracture Print Language Print Language: Swedish Discharge ED Provider: Noah Howell Adult HPI <Aishwarya Brewer (ED), AIRCRAFT SYSTEMS TECHNICIAN - Last Filed: 05/18/25 16:56> General Chief complaint: PAIN Stated complaint: AO 05/18/2025 rib pain Time Seen by Provider: 05/18/25 15:06 Mode of Arrival: Ambulatory Source of Information: Patient Description of Symptoms (Recalled from ER Triage Doc. by RN): Pt was helping a friend work cattle when a cow smashed into the metal bar he was holding. The bar hit on the right rib area. Pt is complaining of pain in ribs. History of Present Illness HPI narrative: 54-year-old male presents to the ED today while he was helping a friend work cattle and he had put a gate up and a cow ran into the gate the gate hit him in the right back. He complains of pain in his posterior ribs. He says he has pain with breathing in and coughing as well as moving. He has no other injuries. Related Data Previous Rx's ?Medication ?Instructions ?Recorded lidocaine 5 % topical patch 1 patch topical DAILY PRN pain 30 04/27/24 (DermacinRx Lidocan) days #30 ea lidocaine-prilocaine 2.5 %-2.5 % 2 g topical BID PRN pain 30 days 04/27/24 topical cream #50 grams nicotine See Rx Instructions transdermal 06/22/24 21mg/24hr-14mg/24hr-7mg/24hr daily .COMPLEX #56 patches transderm patches,sequentl albuterol sulfate 90 mcg/actuation 2 puff inhalation Q4-6H PRN 08/25/24 aerosol inhaler shortness of breath or wheezing #18 grams amlodipine 5 mg tablet (Norvasc) 5 mg PO DAILY #90 tabs 08/25/24 chlorthalidone 25 mg tablet 25 mg PO DAILY #90 tabs 08/25/24 fluticasone furoate 100 1 ea inhalation DAILY #60 ea 08/25/24 mcg-vilanterol 25 mcg/dose inhalation powder (Breo Ellipta) irbesartan 150 mg tablet 150 mg PO DAILY 90 days #90 tabs 08/25/24 meloxicam 15 mg tablet 15 mg PO DAILY #30 tabs 08/25/24 svguwmim-klykiuwmr-qlyptgyqw 3.5 4 drp otic (ear) Q8H 5 days #10 mL 10/16/24 mg/mL-10,000 unit/mL-1 % ear solution allopurinol 100 mg tablet 100 mg PO DAILY #90 tabs 11/06/24 (Zyloprim) tadalafil 20 mg tablet (Cialis) 20 mg PO ONCE #10 tabs 11/23/24 tadalafil 5 mg tablet (Cialis) 5 mg PO DAILY #30 tabs 11/23/24 tamsulosin 0.4 mg capsule (Flomax) 0.4 mg PO DAILY #30 caps 11/23/24 atorvastatin 40 mg tablet 40 mg PO DAILY #90 tabs 01/07/25 ibuprofen 800 mg tablet 800 mg PO QID pain 30 days #120 05/18/25 tabs lidocaine 4 % topical patch 1 patch topical Q12H pain #30 ea 05/18/25 (Lidocaine Pain Relief) methocarbamol 1,000 mg tablet 1,000 mg PO Q4-6H 6 days #36 tabs 05/18/25 Allergies Allergy/AdvReac Type Severity Reaction Status Date / Time amoxicillin (AMOXICILLIN) Allergy Unknown Hives Verified 11/23/24 10:22 Penicillins (PENICILLINS) Allergy Unknown Hives Verified 11/23/24 10:22 PFS <Aishwarya Brewer (ED), AIRCRAFT SYSTEMS TECHNICIAN - Last Filed: 05/18/25 16:56> PFS Disclaimer: The information contained in this section may have been updated after the patient was seen, as this information can be updated by other users. Medical History Instability of right shoulder joint Gout Hypertension Renal insufficiency Hyperlipidemia Chest pain Encounter for screening for malignant neoplasm of lung Eosinophilia Family history of asthma Dyspnea on exertion Asthma-chronic obstructive pulmonary disease overlap syndrome COPD mixed type Gastric bleed requiring more than 4 units over 24 hr, ICU, or surgery Surgical History History of hernia surgery H/O wrist surgery Family History Other Hyperlipidemia Hypertension Social History Smoking Status: Current every day smoker tobacco type: cigarettes packs per day: 1 second hand exposure: No alcohol intake: never substance use type: denies use current occupational status: employed Travel in the last 8 weeks?: None household members: friend(s) housing: apartment Have you lived/traveled outside US in past 30 days?: No Contact w/someone who lives/traveled outside US past 30 days?: No Exposure to someone with infectious disease in past 14 days?: No Do you have a fever (greater than 100.4 F or 38 C)?: No Have you tested positive for COVID-19?: No Exposed to someone with COVID-19 in past 14 days?: No Do you have a sore throat?: No Do you have a cough?: No Do you have any weakness?: No Do you have any diarrhea?: No Are you experiencing any unusual bleeding?: No Do you have any muscle aches/pain?: No Do you have any abdominal pain?: No Are you experiencing loss of taste or smell?: No Other Medical History Have you received the Flu Vaccine for this season: No Have you received the Pneumonia Vaccine: No <Aishwarya Brewer (ED), AIRCRAFT SYSTEMS TECHNICIAN - Last Filed: 05/18/25 16:56> ROS Obtained: Yes Systems reviewed as appropriate & no additional complaints except as documented Constitutional Constitutional: Reports as per HPI Physical Exam <Aishwarya Brewer (ED), AIRCRAFT SYSTEMS TECHNICIAN - Last Filed: 05/18/25 16:56> General General appearance: alert and in distress Head Head exam: normocephalic Eye Eye exam: Present PERRL and EOMI ENT ENT exam: Present normal oropharynx Neck Neck exam: Present full ROM Chest Chest inspection: Present tenderness (Right posterior rib) Respiratory Respiratory exam: Present normal lung sounds bilaterally Cardiovascular Cardiovascular exam: Present regular rate, +S1 and +S2 Abdominal Exam Abdominal exam: Present soft and normal bowel sounds Extremities Exam Extremities exam: Present full ROM Back Exam Back exam: Present tenderness (Right rib posterior) Neurological Exam Neurological exam: Present alert and oriented X3 Skin Skin exam: Present warm and dry Medical Decision Making <Aishwarya Brewer (ED), AIRCRAFT SYSTEMS TECHNICIAN - Last Filed: 05/18/25 16:56> Medical Records Screening: Per USPSTF and CDC recommendations, given the prevalence of disease in our region, it is our hospital?s policy to screen for HIV and viral Hepatitis for all patients aged 18 and over and those with ongoing risk factors. [place] Inquiry Pt receiving controlled substance: Yes [place] was queried for this patient: No Risks and benefits of using a controlled substance: were discussed with pt by me Vital Signs: 05/18/25 14:56 05/18/25 15:01 05/18/25 17:01 Temperature 98.8 F 98.8 F 98.0 F Temperature Source Temporal Artery Scan Temporal Artery Scan Oral Pulse Rate 93 H 70 Pulse Rate [Right] 93 H Respiratory Rate 23 23 16 Blood Pressure 140/79 119/70 Blood Pressure [Right Arm] 140/79 Blood Pressure Mean [Right Arm] 99 Blood Pressure Source Automatic Cuff Automatic Cuff Blood Pressure Source [Right Arm] Automatic Cuff Blood Pressure Position Sitting Sitting Blood Pressure Position [Right Arm] Sitting 02 Sat by Pulse Oximetry 94 L 94 L Oxygen Delivery Method Room Air Room Air Room Air Orders (Tests/Meds): ED MEDICATIONS Discontinued Medications Generic Name Dose Route Start Last Admin Trade Name Freq PRN Reason Stop Dose Admin Acetaminophen 1,000 mg 05/18/25 15:52 05/18/25 16:18 Acetaminophen 1,000mg/100ml Vial IV 05/18/25 15:53 1,000 mg ONCE ONE Administration Ketorolac Tromethamine 30 mg 05/18/25 15:52 05/18/25 16:14 Ketorolac 30mg/Ml Vial IV 05/18/25 15:53 30 mg ONCE ONE Administration Lidocaine 1 each 05/18/25 15:52 05/18/25 16:16 Lidocaine 5% Transdermal Patch TD 05/18/25 15:53 1 each ONCE ONE Administration Methocarbamol 1,500 mg 05/18/25 15:53 05/18/25 16:12 Methocarbamol 500mg Tablet PO 05/18/25 15:54 1,500 mg ONCE ONE Administration Morphine Sulfate 4 mg 05/18/25 15:13 05/18/25 15:32 Morphine 4mg/Ml Syringe IV 05/18/25 15:14 4 mg ONCE ONE Administration Ondansetron HCl 4 mg 05/18/25 15:13 05/18/25 15:31 Ondansetron 4mg/2ml Vial IV 05/18/25 15:14 4 mg ONCE ONE Administration ORDERS Category Date Time Status CT chest wo con Stat Cat Scan 05/18/25 15:11 Completed Medical Decision Narrative: patient is a 54-year-old male presenting to the emergency department for evaluation of right sided rib pain, posterior. Patient is hemodynamically stable and nontoxic-appearing upon arrival, afebrile. Differential diagnosis includes fractured rib, sprain or strain of the ribs, among others. Workup will be conducted with specific imaging. Initial inventions include analgesics. Consider doing labs today but these were unnecessary. Patient CT with contrast of chest showed no rib fractures. However, we do see a rib fracture on the right side read by Dr. Vital and myself. I talked to patient and discussed using Tylenol and ibuprofen, muscle relaxers and heat and ice for pain control. Also discussed returning to ER for any worsening pain or problems. Patient can also see his primary care in follow-up. Patient safe for discharge home. <Elmer Vital MD - Last Filed: 05/18/25 19:06> Vital Signs: 05/18/25 14:56 05/18/25 15:01 05/18/25 17:01 Temperature 98.8 F 98.8 F 98.0 F Temperature Source Temporal Artery Scan Temporal Artery Scan Oral Pulse Rate 93 H 70 Pulse Rate [Right] 93 H Respiratory Rate 23 23 16 Blood Pressure 140/79 119/70 Blood Pressure [Right Arm] 140/79 Blood Pressure Mean [Right Arm] 99 Blood Pressure Source Automatic Cuff Automatic Cuff Blood Pressure Source [Right Arm] Automatic Cuff Blood Pressure Position Sitting Sitting Blood Pressure Position [Right Arm] Sitting 02 Sat by Pulse Oximetry 94 L 94 L Oxygen Delivery Method Room Air Room Air Room Air Orders (Tests/Meds): ED MEDICATIONS Discontinued Medications Generic Name Dose Route Start Last Admin Trade Name Yoly PRN Reason Stop Dose Admin Acetaminophen 1,000 mg 05/18/25 15:52 05/18/25 16:18 Acetaminophen 1,000mg/100ml Vial IV 05/18/25 15:53 1,000 mg ONCE ONE Administration Ketorolac Tromethamine 30 mg 05/18/25 15:52 05/18/25 16:14 Ketorolac 30mg/Ml Vial IV 05/18/25 15:53 30 mg ONCE ONE Administration Lidocaine 1 each 05/18/25 15:52 05/18/25 16:16 Lidocaine 5% Transdermal Patch TD 05/18/25 15:53 1 each ONCE ONE Administration Methocarbamol 1,500 mg 05/18/25 15:53 05/18/25 16:12 Methocarbamol 500mg Tablet PO 05/18/25 15:54 1,500 mg ONCE ONE Administration Morphine Sulfate 4 mg 05/18/25 15:13 05/18/25 15:32 Morphine 4mg/Ml Syringe IV 05/18/25 15:14 4 mg ONCE ONE Administration Ondansetron HCl 4 mg 05/18/25 15:13 05/18/25 15:31 Ondansetron 4mg/2ml Vial IV 05/18/25 15:14 4 mg ONCE ONE Administration ORDERS Category Date Time Status CT chest wo con Stat Cat Scan 05/18/25 15:11 Completed Medical Decision Narrative: patient is a 54-year-old male presenting to the emergency department for evaluation of right sided rib pain, posterior. Patient is hemodynamically stable and nontoxic-appearing upon arrival, afebrile. Differential diagnosis includes fractured rib, sprain or strain of the ribs, among others. Workup will be conducted with specific imaging. Initial inventions include analgesics. Consider doing labs today but these were unnecessary. Patient CT with contrast of chest showed no rib fractures. However, we do see a rib fracture on the right side read by Dr. Vital and myself. I talked to patient and discussed using Tylenol and ibuprofen, muscle relaxers and heat and ice for pain control. Also discussed returning to ER for any worsening pain or problems. Patient can also see his primary care in follow-up. Patient safe for discharge home. Elmer Vital MD: I was consulted by the ALEX, and we discussed the complexity of the problems being addressed. I approved the treatment and management plan for this patient's care in the emergency department, thus performing a substantive portion of the medical decision making. I informally visualized patient CT chest, he has a right-sided rib fracture over his site of pain. I only visualize 1 he is otherwise hemodynamically stable and appropriate for outpatient management at this time. Critical Care <Aishwarya Brewer (ANALI), AIRCRAFT SYSTEMS TECHNICIAN - Last Filed: 05/18/25 16:56> Critical Care Time Critical Care Time: No
--- OUTSIDE RECORDS SUMMARY | 2025-05-18 15:48 | XMS_ITS | Clinical Summary ---
Author Organization Healthcare Address [address] [place] [address] Care Team Providers Care Sample Tester Name Role Phone Unavailable Primary Care Provider Unavailabl e Social History Tobacco Use Types Packs/Day Years Used Date Smoking Tobacco: Never Assessed Sex and Gender Information Value Date Recorded Sex Assigned at Not on file Legal Sex Male 8:15 PM EDT Gender Identity Not on file Sexual Orientation Not on file Plan of Treatment Health Maintenance Due Date Last Done Comments [facility]-Depression Screening 1970 [facility]-Infant/Child/Adol SDOH Screenings 1970 [facility]- SDOH Screenings 1988 [facility]-Adult SDOH Screenings 1988 [facility]-DTaP,Tdap,and Td Vaccine s (1 - Tdap) 1989 [facility]-Hepatitis B Vaccines (1 of 3 - 19+ 3-dose series) 1989 CT Colonography 2015 Colonoscopy 2015 FIT-DNA 2015 FIT 2015 FOBT 2015 Sigmoidoscopy 2015 [facility]-Colorectal Cancer Screening 2015 [facility]-Pneumococcal Vaccine: 50 + Years (1 of 1 - PCV) 2020 [facility]-Zoster Vaccines (1 of 2) 2020 [id number] Vaccine (1 - 20 24-25 season) 2025 [facility]-Influenza Vaccine (#1) 2025 HPV Vaccines Aged Out No longer eligi ble based on patient's age to complete this topic [facility]-HIB Vaccines Aged Out No longer e ligible based on patient's age to complete this topic [facility]-Hepatitis A Vaccines Aged Out No longer eligible based on patient's age to complete this topic UKY-IPV Vaccines Aged Out No longer e ligible based on patient's age to complete this topic [facility]-Rotavirus Vaccines Aged Out No lo nger eligible based on patient's age to complete this topic
--- OUTSIDE RECORDS SUMMARY | 2025-05-18 15:48 | XMS_ITS | Clinical Summary ---
Author Organization [facility] Address [address] [place] [address] Phone Care Team Providers Care Visitor Services Specialist Name Role Phone Unavailable Primary Care Provider Unavailabl e Allergies Active Allergy Reactions Criticality Noted Date Comments Penicillins 12/05/2011 Medications * This document contains information received from the source organization and may not represent a complete record from that organization. lisinopril (PRINIVIL;ZESTRI L) 10 mg tablet Take 10 mg by mouth daily. Active [place]-3 Fatty Acids-Vitamin E (FISH OIL) 1,000 mg Cap Take 1,000 mg by mouth. Active omeprazole (PRILOSEC) 20 mg Take 20 mg by mouth 2 times daily (before meals). Active albuterol (PROAIR HFA) 90 mcg/actuation inhaler Inhale 2 Puffs into the lungs every 6 hours as needed. Active multivitamin (THERAGRAN) tablet Take 1 Tab by mouth daily. 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 Surgical History Surgery Date Site/Laterality Comments WRIST SURGERY Medical History Medical History Date Comments COPD (chronic obstructive pulmonary disease) (HC C) Hypertension Heartburn Sedative addiction (HCC) Opiate dependence (HCC) Family History Medical History Relation Name Comments Substance Abuse Brother 2 Relation Name Status Comments Brother 2 Alive Father Alive Mother Alive Sister 1 Social History Tobacco Use Types Packs/Day Years Used Date Smoking Tobacco: Every Day Alcohol Use Standard Drinks/Week Comments No 0 (1 standard drink = 0.6 oz pur e alcohol) Sexually Active Control Partners Comments Yes Female Sex and Gender Information Value Date Recorded Sex Assigned at Not on file Legal Sex Male 4:15 AM EDT Gender Identity Not on file Sexual Orientation Not on file Last Filed Vital Signs Vital Sign Reading Time Taken Comments Blood Pressure 137/77 12/13/2011 7:00 AM EDT Pulse 94 12/13/2011 7:00 AM EDT Temperature 36.7 C (98 F) 12/13/2011 7:00 AM EDT Respiratory Rate 18 12/13/2011 7:00 AM EDT Oxygen Saturation 100% 12/13/2011 7:00 AM EDT Inhaled Oxygen Concentration - - Weight 77.1 kg (170 lb) 12/05/2011 11:03 AM EDT Height 175.3 cm (5' 9 ) 12/05/2011 11:03 AM EDT Body Mass Index 25.1 12/05/2011 11:03 AM EDT Plan of Treatment Health Maintenance Due Date Last Done Comments Wellness Exam Medicare 1973 DTaP/TDaP/Td (1 - Tdap) 1989 Hepatitis B Vaccine (1 of 3 - 19+ 3-dose series) 1989 Cologuard 2015 Colon Cancer Screening 2015 Colonoscopy 2015 FIT 2015 Sigmoidoscopy 2015 Virtual Colonography 2015 Pneumococcal Vaccine 50+ (1 of 1 - PCV) 2020 Zoster (1 of 2) 2020 COVID-19 Vaccine (1 - 2024-2 6 season) 2025 Influenza Vaccine (#1) 2025 Meningococcal B Vaccine Aged Out No l onger eligible based on patient's age to complete this topic Insurance MEDICARE [place] PART A AND B
--- OUTSIDE RECORDS SUMMARY | 2025-05-18 15:48 | XMS_ITS | Clinical Summary ---
Author Organization [facility] Address [address] [place] [address], [address] [place] [address] Care Team Providers Care Adjunct Phlebotomy Instructor Name Role Phone Unavailable Primary Care Provider Unavailabl e Social History Tobacco Use Types Packs/Day Years Used Date Smoking Tobacco: Never Assessed Sex and Gender Information Value Date Recorded Sex Assigned at Not on file Legal Sex Male 12:30 PM EDT Gender Identity Not on file Sexual Orientation Not on file Plan of Treatment Not on file Insurance MEDICARE
[2025-05-18] MEDS: METHOCARBAMOL 500MG TABLET 1500 MG PO (16:12)
[2025-05-18] MEDS: KETOROLAC 30MG/ML VIAL 30 MG IV (16:14)
[2025-05-18] MEDS: LIDOCAINE 5% TRANSDERMAL PATCH 1 EACH TD (16:16)
[2025-05-18] MEDS: ACETAMINOPHEN 1,000MG/100ML VIAL 1000 MG IV (16:18)
[2025-05-18 17:01] VITALS: BP 119/70; PULSE 70; RESP 16; TEMP 36.7; O2SAT 96
== END 2025-05-18 17:02 | disposition home or self-care (01) ==
PROVIDERS: Emergency Provider Student in an Organized Health Care Education/Training Program
DX: S22.31XA Fracture of one rib, right side, initial encounter for closed fracture (principal); R07.1 Chest pain on breathing; F17.210 Nicotine dependence, cigarettes, uncomplicated; I10 Essential (primary) hypertension; E78.5 Hyperlipidemia, unspecified; W22.8XXA Striking against or struck by other objects, initial encounter
CPT/HCPCS: 71250; 93005; 96374; 96375; 99284; J0131; J1885; J2270; J2405

== ENCOUNTER 2025-05-20 09:44 | Outpatient (CLI) | payer MEDICARE, SELFPAY ==
[2025-05-20 16:05] LABS: Chloride 102 mmol/L (98-107); Potassium 4.3 mmoL/L (3.5-5.1); Sodium 137 mmol/L (136-145)
[2025-05-20 16:08] LABS: Anion Gap 7.3 mEq/L (5-15); Blood Urea Nitrogen 9 mg/dl (9-20); Calcium 9.0 mg/dl (8.4-10.2); Carbon Dioxide 32 mmol/L (22.0-30.0); Creatinine,Serum 1.00 mg/dl (0.66-1.25); Estimated Glomerular Filt Rate 78 ml/min (>60); GFR (African American) 94 ML/MIN (>60); Glucose 83 mg/dl (74-100)
--- OUTSIDE RECORDS SUMMARY | 2025-05-21 10:06 | XMS_ITS | Clinical Summary ---
Author Organization Healthcare Address [address] [place] [address] Care Team Providers Care Dermatology Physician Name Role Phone Unavailable Primary Care Provider [...] 2020 [facility]-Zoster Vaccines (1 of 2) 2020 [id number] Vaccine (1 - 20 24-25 season) 2025 [...]
--- OUTSIDE RECORDS SUMMARY | 2025-05-21 10:06 | XMS_ITS | Clinical Summary ---
Author Organization [facility] Address [address] [place] [address] Phone Care Team Providers Care Tavern Car Attendant Name Role Phone Unavailable Primary Care Provider Unavailabl e Allergies Active Allergy Reactions Criticality Noted Date Comments Penicillins 12/05/2011 Medications * This document contains information received from the source organization and may not represent a complete record from that organization. lisinopril (PRINIVIL;ZESTRI L) 10 mg tablet Take 10 mg by mouth daily. Active [place]-3 Fatty Acids-Vitamin E (FISH OIL) 1,000 mg [...]
--- OUTSIDE RECORDS SUMMARY | 2025-05-21 10:06 | XMS_ITS | Clinical Summary ---
Author Organization [facility] Address [address] [place] [address], [address] [place] [address] Care Team Providers Care Trolley Wire Installer Name Role Phone Unavailable Primary Care Provider [...]
== END 2025-05-20 23:59 ==
LOC: LAB.DROPOF 05-21 10:03
PROVIDERS: PCP Student in an Organized Health Care Education/Training Program; Visit Provider Student in an Organized Health Care Education/Training Program
DX: I10 Essential (primary) hypertension (principal)
CPT/HCPCS: 80048